=== PATIENT | male | born 1950 | race Caucasian/White ===

== ENCOUNTER 2017-11-16 11:29 | Inpatient (IN) | payer BC, MEDICARE, OTHER ==
--- NOTE | 2017-11-16 11:46 | EDM.PDOC ---
ED HPI GENERAL MEDICAL PROBLEM - General Chief Complaint: General Stated Complaint: IN BY AMBULANCE Time Seen by Provider: 11/16/17 11:57 Source of Information: Reports: Patient, RN, RN Notes Reviewed History Limitations: Reports: No Limitations - History of Present Illness INITIAL COMMENTS - FREE TEXT/NARRATIVE: Patient presents to ER per [facility] with complaint of leg swelling. Pain in lower back since getting here. The pain is 7-8/10. Patient states he has had back problems but he states his back was thrown out when he was moved from ambulance cot to ER bed. Patient states he has not been able to get out of chair since Friday. Patient states legs began swelling on Friday. Denies shortness of breath, chest pain, fever, chills, nausea, vomiting and diarrhea. Location: Reports: Back, Other (leg swelling) Quality: Reports: Ache Severity: Severe Improves with: Reports: None Worsens with: Reports: None Associated Symptoms: Reports: No Other Symptoms Bilateral Feet Pain Score (Numeric/FACES): 4 Lower Back Pain Score (Numeric/FACES): 8 - Related Data Allergies Allergy/AdvReac Type Severity Reaction Status Date / Time No Known Allergies Allergy Verified 11/16/17 11:30 Home Meds: Home Meds Aspirin [Ecotrin] 81 mg PO DAILY 11/16/17 [History] Clopidogrel Bisulfate [Plavix] 75 mg PO DAILY 11/16/17 [History] Gabapentin [Neurontin] 400 mg PO TID 11/16/17 [History] Lisinopril 40 mg PO DAILY 11/16/17 [History] Metoprolol Tartrate 50 mg PO BID 11/16/17 [History] glipiZIDE [Glucotrol XL] 5 mg PO BID 11/16/17 [History] Social & Family History - Family History Family Medical History: Noncontributory - Tobacco Use Smoking Status *Q: Current Every Day Smoker Years of Tobacco use: 45 Packs/Tins Daily: 1 Second Hand Smoke Exposure: No - Caffeine Use Caffeine Use: Reports: Soda - Alcohol Use Days Per Week of Alcohol Use: 0 - Recreational Drug Use Recreational Drug Use: No ED ROS GENERAL - Review of Systems Review Of Systems: ROS reveals no pertinent complaints other than HPI. ED EXAM, GENERAL - Physical Exam Exam: See Below Exam Limited By: No Limitations General Appearance: Moderate Distress Eye Exam: Bilateral Eye: Normal Inspection Ears: Normal External Exam, Normal Canal, Hearing Grossly Normal, Normal TMs Nose: Normal Inspection, Normal Mucosa, No Blood Throat/Mouth: Normal Inspection, Normal Lips, Normal Teeth, Normal Gums, Normal Oropharynx, Normal Voice, No Airway Compromise Head: Atraumatic, Normocephalic Neck: Normal Inspection Respiratory/Chest: Other (Rales and wheezes throughout) Cardiovascular: Other (History of CABG in 2009.) GI/Abdominal: Other (distender without being tender. Decreased bowel sounds.) (Male) Exam: Deferred Rectal (Males) Exam: Deferred Back Exam: Decreased Range of Motion Extremities: Other (decreased range of motion lower extremities) Neurological: Alert, Oriented, CN II-XII Intact, Normal Cognition, Normal Gait, Normal Reflexes, No Motor/Sensory Deficits Psychiatric: Anxious Skin Exam: Other (pallor, cool and diaphoretic.) Lymphatic: No Adenopathy EKG INTERPRETATION EKG Date: 11/16/17 Time: 11:57 Rhythm: Other (sinus rhythm) Rate (Beats/Min): 92 EKG Interpretation Comments: Ventricular premature complex. Probable left atrial abnormality. Borderline right axis deviation. Borderline inferior Q waves. Borderline prolonged QT interval. Course - Vital Signs Last Recorded V/S: Last Vital Signs Temp 98.3 F 11/16/17 11:55 Pulse 98 11/16/17 20:00 Resp 20 11/16/17 13:37 BP 97/47 L 11/16/17 20:00 Pulse Ox 92 L 11/16/17 13:37 - Orders/Labs/Meds Orders: Active Orders 24 hr Category Date Time Status Peripheral IV Care [RC] . DIRECTED Care 11/16/17 12:12 Active CULTURE BLOOD [BC] Stat Lab 11/16/17 12:30 Received CULTURE BLOOD [BC] Stat Lab 11/16/17 12:35 Received Sodium Chloride 0.9% [Saline Flush] Med 11/16/17 12:12 Active 10 ml FLUSH ASDIRECTED PRN Blood Culture x2 Reflex Set [OM.PC] Stat Oth 11/16/17 12:12 Ordered Peripheral IV Insertion Adult [OM.PC] Stat Oth 11/16/17 12:12 Ordered Medication Orders Acetaminophen (Tylenol) 650 mg PO Q4H PRN PRN Reason: Pain (Mild 1-3)/fever Last Admin: 11/16/17 16:14 Dose: 650 mg Aspirin (Halfprin) 81 mg PO DAILY [facility] Last Admin: 11/16/17 16:15 Dose: 81 mg Ceftriaxone Sodium (Rocephin) 1 gm IVPUSH Q24H [facility] Last Admin: 11/16/17 16:13 Dose: 1 gm Clopidogrel Bisulfate (Plavix) 75 mg PO DAILY [facility] Last Admin: 11/16/17 16:15 Dose: 75 mg Docusate Sodium (Colace) 100 mg PO BID PRN PRN Reason: Constipation Furosemide (Lasix) 20 mg PO DAILY [facility] Last Admin: 11/16/17 16:14 Dose: 20 mg Gabapentin (Neurontin) 300 mg PO TID [facility] Last Admin: 11/16/17 20:00 Dose: 300 mg Admin: 11/16/17 16:15 Dose: 300 mg Glipizide (Glucotrol Xl) 5 mg PO DAILY [facility] Heparin Sodium (Porcine) (Heparin Sodium) 5,000 units SUBCUT Q8HR [facility] Azithromycin 500 mg/ Sodium (Chloride) 250 mls @ 250 mls/hr IV Q24H [facility] Last Admin: 11/16/17 16:13 Dose: 125 mls/hr Ibuprofen (Motrin) 400 mg PO Q6H PRN PRN Reason: Pain (mild 1-3) Insulin Aspart (Novolog) 0 unit SUBCUT TIDAC [facility] PRN Reason: Protocol Last Admin: 11/16/17 18:35 Dose: Metoprolol Tartrate (Lopressor) 50 mg PO BID [facility] Last Admin: 11/16/17 20:00 Dose: 50 mg Multi-Ingred Cream/Lotion/Oil/Oint (Zinc Oxide) 0 gm TOP Q4H PRN PRN Reason: barrier cream on buttock Nystatin (Nystatin Crm) 0 gm TOP TID [facility] Last Admin: 11/16/17 20:01 Dose: 1 applicful Admin: 11/16/17 16:15 Dose: 1 applicful Ondansetron HCl (Zofran) 4 mg IVPUSH Q6H PRN PRN Reason: Nausea/Vomiting Sodium Chloride (Saline Flush) 10 ml FLUSH ASDIRECTED PRN PRN Reason: Keep Vein Open Last Admin: 11/16/17 12:17 Dose: 10 ml Sodium Chloride (Saline Flush) 10 ml FLUSH ASDIRECTED PRN PRN Reason: Keep Vein Open Zolpidem Tartrate (Ambien) 5 mg PO BEDTIME PRN PRN Reason: Sleep Labs: Laboratory Tests 11/16/17 11/16/17 11/16/17 Range/Units 12:35 12:35 12:35 WBC 15.1 H (5.0-10.0) 10^3/uL RBC 4.84 (4.6-6.2) 10^6/uL Hgb 14.9 (14.0-18.0) g/dL Hct 44.1 (40.0-54.0) % MCV 91.1 (80-100) fL MCH 30.8 (27.0-34.0) pg MCHC 33.8 (33.0-35.0) g/dL Plt Count 201 (150-450) 10^3/uL Neut % (Auto) 83.1 H (42.2-75.2) % Lymph % (Auto) 5.2 L (20.5-50.1) % [place] % (Auto) 10.9 H (2-8) % Eos % (Auto) 0.7 L (1.0-3.0) % Baso % (Auto) 0.1 (0.0-1.0) % Add Manual Diff Yes Neutrophils % (Manual) 82 H (42-75) % Band Neutrophils % 3 % Lymphocytes % (Manual) 7 L (20-50) % Monocytes % (Manual) 8 (2-8) % Sodium 126 L (135-145) mmol/L Potassium 4.3 (3.6-5.0) mmol/L Chloride 90 L (101-111) mmol/L Carbon Dioxide 24.0 (21.0-31.0) mmol/L Anion Gap 16.3 BUN 31 H (7-18) mg/dL Creatinine 1.4 H (0.6-1.3) mg/dL Est Cr Clr Drug Dosing 51.42 mL/min Estimated GFR (MDRD) 50 BUN/Creatinine Ratio 22.14 Glucose 163 H (74-105) mg/dL Lactic Acid 2.5 H (0.5-2.2) mmol/L Calcium 8.6 (8.4-10.2) mg/dl Total Bilirubin 2.2 H (0.2-1.0) mg/dL AST 37 (10-42) IU/L ALT 19 (10-60) IU/L Alkaline Phosphatase 120 (42-121) IU/L Troponin I < 0.02 (0.00-0.02) ng/ml B-Natriuretic Peptide 28 (0-100) pg/ml Total Protein 8.5 H (6.7-8.2) g/dl Albumin 3.4 (3.2-5.5) g/dl Globulin 5.1 Albumin/Globulin Ratio 0.67 Urine Color (YELLOW) Urine Appearance (CLEAR) Urine pH (5.0-9.0) Ur Specific [place] (1.005-1.030) Urine Protein (NEGATIVE) Urine Glucose (UA) (NEGATIVE) Urine Ketones (NEGATIVE) Urine Occult Blood (NEGATIVE) Urine Nitrite (NEGATIVE) Urine Bilirubin (NEGATIVE) Urine Urobilinogen (0.2-1.0) mg/dL Ur Leukocyte Esterase (NEGATIVE) Urine RBC /HPF Urine WBC (0-5/HPF) /HPF Ur Epithelial Cells /HPF Urine Bacteria (0-FEW/HPF) /HPF Hyaline Casts /LPF 11/16/17 Range/Units 13:28 WBC (5.0-10.0) 10^3/uL RBC (4.6-6.2) 10^6/uL Hgb (14.0-18.0) g/dL Hct (40.0-54.0) % MCV (80-100) fL MCH (27.0-34.0) pg MCHC (33.0-35.0) g/dL Plt Count (150-450) 10^3/uL Neut % (Auto) (42.2-75.2) % Lymph % (Auto) (20.5-50.1) % [place] % (Auto) (2-8) % Eos % (Auto) (1.0-3.0) % Baso % (Auto) (0.0-1.0) % Add Manual Diff Neutrophils % (Manual) (42-75) % Band Neutrophils % % Lymphocytes % (Manual) (20-50) % Monocytes % (Manual) (2-8) % Sodium (135-145) mmol/L Potassium (3.6-5.0) mmol/L Chloride (101-111) mmol/L Carbon Dioxide (21.0-31.0) mmol/L Anion Gap BUN (7-18) mg/dL Creatinine (0.6-1.3) mg/dL Est Cr Clr Drug Dosing mL/min Estimated GFR (MDRD) BUN/Creatinine Ratio Glucose (74-105) mg/dL Lactic Acid (0.5-2.2) mmol/L Calcium (8.4-10.2) mg/dl Total Bilirubin (0.2-1.0) mg/dL AST (10-42) IU/L ALT (10-60) IU/L Alkaline Phosphatase (42-121) IU/L Troponin I (0.00-0.02) ng/ml B-Natriuretic Peptide (0-100) pg/ml Total Protein (6.7-8.2) g/dl Albumin (3.2-5.5) g/dl Globulin Albumin/Globulin Ratio Urine Color Elise (YELLOW) Urine Appearance Turbid (CLEAR) Urine pH 5.5 (5.0-9.0) Ur Specific [place] 1.020 (1.005-1.030) Urine Protein 30 H (NEGATIVE) Urine Glucose (UA) Negative (NEGATIVE) Urine Ketones Negative (NEGATIVE) Urine Occult Blood Negative (NEGATIVE) Urine Nitrite Negative (NEGATIVE) Urine Bilirubin Moderate H (NEGATIVE) Urine Urobilinogen >=8.0 H (0.2-1.0) mg/dL Ur Leukocyte Esterase Negative (NEGATIVE) Urine RBC 0-5 /HPF Urine WBC 0-5 (0-5/HPF) /HPF Ur Epithelial Cells Moderate H /HPF Urine Bacteria Moderate H (0-FEW/HPF) /HPF Hyaline Casts Many H /LPF Meds: Medications Generic Name Dose Route Start Last Admin Trade Name Tanvir PRN Reason Stop Dose Admin Acetaminophen 650 mg 11/16/17 14:52 11/16/17 16:14 Tylenol PO 650 mg Q4H PRN Administration Pain (Mild 1-3)/fever Aspirin 81 mg 11/16/17 15:29 11/16/17 16:15 Halfprin PO 81 mg DAILY [facility] Administration Ceftriaxone Sodium 1 gm 11/16/17 15:00 11/16/17 16:13 Rocephin IVPUSH 1 gm Q24H [facility] Administration Clopidogrel Bisulfate 75 mg 11/16/17 15:30 11/16/17 16:15 Plavix PO 75 mg DAILY [facility] Administration Docusate Sodium 100 mg 11/16/17 14:52 Colace PO BID PRN Constipation Furosemide 20 mg 11/16/17 15:00 11/16/17 16:14 Lasix PO 20 mg DAILY [facility] Administration Gabapentin 300 mg 11/16/17 15:45 11/16/17 20:00 Neurontin PO 300 mg TID [facility] Administration Glipizide 5 mg 11/17/17 09:00 Glucotrol Xl PO DAILY [facility] Heparin Sodium (Porcine) 5,000 units 11/16/17 22:00 Heparin Sodium SUBCUT Q8HR [facility] Azithromycin 500 mg/ Sodium 250 mls @ 250 mls/hr 11/16/17 15:00 11/16/17 16: 13 Chloride IV 125 mls/hr Q24H [facility] Administration Ibuprofen 400 mg 11/16/17 14:52 Motrin PO Q6H PRN Pain (mild 1-3) Insulin Aspart 0 unit 11/16/17 17:00 11/16/17 18:35 Novolog SUBCUT Not Given TIDAC [facility] Protocol Metoprolol Tartrate 50 mg 11/16/17 21:00 11/16/17 20:00 Lopressor PO 50 mg BID [facility] Administration Multi-Ingred Cream/Lotion/Oil/Oint 0 gm 11/16/17 15:52 Zinc Oxide TOP Q4H PRN barrier cream on buttock Nystatin 0 gm 11/16/17 15:30 11/16/17 20:01 Nystatin Crm TOP 1 applicful TID [facility] Administration Ondansetron HCl 4 mg 11/16/17 14:52 Zofran IVPUSH Q6H PRN Nausea/Vomiting Sodium Chloride 10 ml 11/16/17 12:12 11/16/17 12:17 Saline Flush FLUSH 10 ml ASDIRECTED PRN Administration Keep Vein Open Sodium Chloride 10 ml 11/16/17 14:52 Saline Flush FLUSH ASDIRECTED PRN Keep Vein Open Zolpidem Tartrate 5 mg 11/16/17 14:52 Ambien PO BEDTIME PRN Sleep Discontinued Medications Generic Name Dose Route Start Last Admin Trade Name Freq PRN Reason Stop Dose Admin Aspirin 81 mg 11/17/17 09:00 Halfprin PO DAILY [facility] Clopidogrel Bisulfate 75 mg 11/17/17 09:00 Plavix PO DAILY [facility] Glipizide 5 mg 11/16/17 18:00 Glucotrol Xl PO BIDMEALS [facility] Hydromorphone HCl 1 mg 11/16/17 12:48 11/16/17 13:05 Dilaudid IVPUSH 11/16/17 12:49 1 mg ONETIME ONE Administration Lisinopril 40 mg 11/17/17 09:00 Prinivil PO DAILY [facility] - Radiology Interpretation Free Text/Narrative:: Chest x-ray: Subtle new abnormality left base. No signs of heart failure, lung mass or other focal lobar consolidation. See Rad report. Departure - Departure Time of Disposition: 14:40 Disposition: Refer to Observation Condition: Fair Clinical Impression: Weakness CAD (coronary artery disease) Qualifiers: Coronary Disease-Associated Artery/Lesion type: unspecified vessel or lesion type [place] vs. transplanted heart: [place] heart Associated angina: without angina Qualified Code(s): I25.10 - Atherosclerotic heart disease of [place] coronary artery without angina pectoris Decubitus ulcer Qualifiers: Pressure ulcer location: contiguous region involving back and buttock Pressure ulcer stage: stage 2 Laterality: unspecified laterality Qualified Code(s): L89.42 - Pressure ulcer of contiguous site of back, buttock and hip, stage 2 - Discharge Information - My Orders Last 24 Hours: My Active Orders 11/16/17 12:12 Peripheral IV Care [RC] . DIRECTED Sodium Chloride 0.9% [Saline Flush] 10 ml FLUSH ASDIRECTED PRN Blood Culture x2 Reflex Set [OM.PC] Stat Peripheral IV Insertion Adult [OM.PC] Stat 11/16/17 12:30 CULTURE BLOOD [BC] Stat 11/16/17 12:35 CULTURE BLOOD [BC] Stat - Assessment/Plan Last 24 Hours: My Active Orders 11/16/17 12:12 Peripheral IV Care [RC] . DIRECTED Sodium Chloride 0.9% [Saline Flush] 10 ml FLUSH ASDIRECTED PRN Blood Culture x2 Reflex Set [OM.PC] Stat Peripheral IV Insertion Adult [OM.PC] Stat 11/16/17 12:30 CULTURE BLOOD [BC] Stat 11/16/17 12:35 CULTURE BLOOD [BC] Stat
[2017-11-16] MEDS: Sodium Chloride 0.9% 10 ML Syringe FLUSH PRN (12:17)
[2017-11-16] MEDS ORDERED: HYDROmorphone 1 MG/ML Syringe IVPUSH ONE (12:48)
--- NOTE | 2017-11-16 13:05 | CR ---
Clinical history: 67-year-old male chest pain. Interpretation: Sternotomy wires and external child monitor leads. Normal cardiac silhouette without new cephalization of vascular flow, signs of alveolar edema or depe ndent pleural fluid accumulation (effusion) when compared to 09 May 2010 exam. Chronic mild shaggy accentuation of the perihilar bronchial markings and some lower lobe atelectasis (developing infiltrate?) on the left, silhouetting the ipsilateral left hemidiaphragm. No new lung mass, hilar lymphadenopathy or other focal lobar consolidation. No pneumothorax. CONCLUSION: Subtle new abnormality left base (see above). No signs of heart failure, lung mass or oth er focal lobar consolidation.
[2017-11-16 13:06] LABS: ANION GAP 16.3; CHLORIDE,CL 90 mmol/L (101-111); SODIUM,NA 126 mmol/L (135-145)
[2017-11-16] MEDS ORDERED: Docusate Sodium 100 MG Cap PO PRN (14:52)
[2017-11-16] MEDS ORDERED: Sodium Chloride 0.9% 10 ML Syringe FLUSH PRN (14:52)
[2017-11-16] MEDS ORDERED: Ondansetron 4 MG/2 ML SDV IVPUSH PRN (14:52)
--- NOTE | 2017-11-16 15:04 | PCM.HP ---
H&P History of Present Illness - General Date of Service: 11/16/17 Admit Problem/Dx: Admission Diagnosis/Problem Admission Diagnosis/Problem Pneumonia - History of Present Illness Initial Comments - Free Text/Narative: 67 yo with h/o dm, pad, cad, cva, morbid obesity. presnted with weakness, could not get out of chair for 3-5 days, c/o leg swelling, his daughter was soaking the leg, used dino wrap without help no associated cp has cough, chronic, no sputum no fever no urine burning was urinating into a bucket next to his recliner, presented dirty, ulcer on sacral area Bilateral Feet Pain Score (Numeric/FACES): 4 Lower Back Pain Score (Numeric/FACES): 8 - Related Data Allergies/Adverse Reactions: Allergies Allergy/AdvReac Type Severity Reaction Status Date / Time No Known Allergies Allergy Verified 11/16/17 11:30 Home Medications: Home Meds Aspirin [Ecotrin] 81 mg PO DAILY 11/16/17 [History] Clopidogrel Bisulfate [Plavix] 75 mg PO DAILY 11/16/17 [History] Gabapentin [Neurontin] 800 mg PO TID 11/16/17 [History] Lisinopril 40 mg PO DAILY 11/16/17 [History] Metoprolol Tartrate 50 mg PO BID 11/16/17 [History] glipiZIDE [Glucotrol XL] 5 mg PO BID 11/16/17 [History] Past Medical History HEENT History: Reports: None Cardiovascular History: Reports: Hypertension, [place] Respiratory History: Reports: None Gastrointestinal History: Reports: None Genitourinary History: Reports: None Musculoskeletal History: Reports: Back Pain, Chronic Neurological History: Reports: CVA, Neuropathy, Peripheral Psychiatric History: Reports: None Endocrine/Metabolic History: Reports: Diabetes, Type II Hematologic History: Reports: None Immunologic History: Reports: None Oncologic (Cancer) History: Reports: None Dermatologic History: Reports: None - Infectious Disease History Infectious Disease History: Reports: None - Past Surgical History HEENT Surgical History: Reports: None Cardiovascular Surgical History: Reports: Coronary Artery Bypass Respiratory Surgical History: Reports: None GI Surgical History: Reports: None Male Surgical History: Reports: None Dermatological Surgical History: Reports: None Social & Family History - Family History Family Medical History: Noncontributory - Tobacco Use Smoking Status *Q: Current Every Day Smoker Years of Tobacco use: 45 Packs/Tins Daily: 1 Second Hand Smoke Exposure: No - Caffeine Use Caffeine Use: Reports: Soda - Alcohol Use Days Per Week of Alcohol Use: 0 - Recreational Drug Use Recreational Drug Use: No H&P Review of Systems - Review of Systems: Review Of Systems: See Below General: Reports: Malaise, Weakness. Denies: Fever, Chills Pulmonary: Denies: Shortness of Breath, Wheezing Cardiovascular: Denies: Chest Pain Gastrointestinal: Denies: Abdominal Pain Genitourinary: Denies: Dysuria Musculoskeletal: Reports: Back Pain (after transfer in ER) Exam - Exam Exam: See Below - Vital Signs Vital Signs: Last Vital Signs Temp 36.8 C 11/16/17 11:55 Pulse 94 11/16/17 13:37 Resp 20 11/16/17 13:37 BP 114/94 H 11/16/17 13:37 Pulse Ox 92 L 11/16/17 13:37 Weight: 131.542 kg - Exam General: Alert, Oriented HEENT: EOMI, Hearing Intact Lungs: Normal Respiratory Effort, Decreased Breath Sounds, Rhonchi (b/l ). No: Wheezing Cardiovascular: Regular Rate, Regular Rhythm GI/Abdominal Exam: Normal Bowel Sounds, Soft, Non-Tender, Other (morbidly obese) Extremities: Pedal Edema (b/l 2+ ) Skin: Rash (yeasty rash b/l armpits), Decubitis (sacral area), Other (dirty everywhere) Neurological: Other (able to move all extremities but not strong enough to stand up on his own). No: Normal Gait Neuro Extensive - Mental Status: Alert, Oriented x3, Normal Mood/Affect Psychiatric: Alert, Normal Affect, Normal Mood - Patient Data Result Diagrams: 11/16/17 12:35 11/16/17 12:35 Imaging Impressions Last 24 hrs: cxr per reading possible left sided infiltrate *Q Meaningful Use (ADM) - VTE *Q VTE Criteria *Q: - Stroke *Q Stroke Criteria *Q: - AMI *Q AMI Criteria *Q: - Problem List (1) Weakness SNOMED Code(s): 70383613 ICD Code: R53.1 - WEAKNESS Status: Acute Current Visit: Yes (2) Pneumonia SNOMED Code(s): 878097135 ICD Code: J18.9 - PNEUMONIA, UNSPECIFIED ORGANISM Status: Acute Current Visit: Yes (3) CAD (coronary artery disease) SNOMED Code(s): 66676421 ICD Code: I25.10 - ATHSCL HEART DISEASE OF [place] CORONARY ARTERY W/O ANG PCTRS Status: Acute Current Visit: Yes (4) Diabetes SNOMED Code(s): 86027547 ICD Code: E11.9 - TYPE 2 DIABETES MELLITUS WITHOUT COMPLICATIONS Status: Acute Current Visit: Yes Problem List Initiated/Reviewed/Updated: Yes Orders Last 24hrs: Active Orders 24 hr Category Date Time Status Patient Status [ADT] Routine ADT 11/16/17 14:52 Ordered Antiembolic Devices [RC] PER UNIT ROUTINE Care 11/16/17 14:54 Ordered Glucose [Blood Glucose Check, Bedside] [RC] QIDACANDBED Care 11/16/17 14:49 Ordered Oxygen Therapy [RC] PRN Care 11/16/17 14:52 Ordered Up With Assistance [RC] ASDIRECTED Care 11/16/17 14:52 Ordered VTE/DVT Education [RC] PER UNIT ROUTINE Care 11/16/17 14:52 Ordered Vital Signs [RC] Q4H Care 11/16/17 14:52 Ordered OT Evaluation and Treatment [CONS] Routine Cons 11/16/17 14:50 Ordered PT Evaluation and Treatment [CONS] Routine Cons 11/16/17 14:50 Ordered Consistent Carbohydrate Diet [DIET] Diet 11/16/17 Dinner Ordered BASIC METABOLIC PANEL,BMP [CHEM] AM Lab 11/17/17 05:15 Ordered CBC WITH AUTO DIFF [HEME] AM Lab 11/17/17 05:15 Ordered CPK [CREATINE KINASE,CK] [CHEM] AM Lab 11/17/17 05:11 Ordered CULTURE SPUTUM + SMEAR [RM] Routine Lab 11/16/17 14:49 Uncollected LACTIC ACID [CHEM] AM Lab 11/17/17 05:11 Ordered LACTIC ACID [CHEM] Timed Lab 11/16/17 16:00 Ordered MAGNESIUM [CHEM] AM Lab 11/17/17 05:11 Ordered PHOSPHORUS [CHEM] AM Lab 11/17/17 05:11 Ordered TROPONIN I [CHEM] AM Lab 11/17/17 05:11 Ordered Acetaminophen [Tylenol] Med 11/16/17 14:52 Ordered 650 mg PO Q4H PRN Aspirin [Halfprin] Med 11/17/17 09:00 Ordered 81 mg PO DAILY Azithromycin [Zithromax] 500 mg Med 11/16/17 15:00 Ordered Sodium Chloride 0.9% [Normal Saline] 250 ml IV Q24H Clopidogrel [Plavix] Med 11/17/17 09:00 Ordered 75 mg PO DAILY Docusate Sodium [Colace] Med 11/16/17 14:52 Ordered 100 mg PO BID PRN Furosemide [Lasix] Med 11/16/17 15:00 Ordered 20 mg PO DAILY Heparin Sodium Med 11/16/17 22:00 Ordered 5,000 units SUBCUT Q8HR Ibuprofen [Motrin] Med 11/16/17 14:52 Ordered 400 mg PO Q6H PRN Insulin Aspart [NovoLOG] Med 11/16/17 17:00 Ordered See Protocol SUBCUT TIDAC Lisinopril [Lisinopril] Med 11/17/17 09:00 Ordered 40 mg PO DAILY Metoprolol Tartrate Med 11/16/17 21:00 Ordered 50 mg PO BID Ondansetron [Zofran] Med 11/16/17 14:52 Ordered 4 mg IVPUSH Q6H PRN Sodium Chloride 0.9% [Saline Flush] Med 11/16/17 14:52 Ordered 10 ml FLUSH ASDIRECTED PRN Zolpidem [Ambien] Med 11/16/17 14:52 Ordered 5 mg PO BEDTIME PRN cefTRIAXone [Rocephin] Med 11/16/17 15:00 Ordered 1 gm IVPUSH Q24H glipiZIDE [Glucotrol XL] Med 11/16/17 21:00 Ordered 5 mg PO BID Antiembolic Hose [OM.PC] Per Unit Routine Oth 11/16/17 14:53 Ordered Saline Lock Insert [OM.PC] Routine Oth 11/16/17 14:52 Ordered Resuscitation Status Routine Resus Stat 11/16/17 14:52 Ordered Medication Orders Acetaminophen (Tylenol) 650 mg PO Q4H PRN PRN Reason: Pain (Mild 1-3)/fever Aspirin (Halfprin) 81 mg PO DAILY [facility] Ceftriaxone Sodium (Rocephin) 1 gm IVPUSH Q24H [facility] Clopidogrel Bisulfate (Plavix) 75 mg PO DAILY [facility] Docusate Sodium (Colace) 100 mg PO BID PRN PRN Reason: Constipation Furosemide (Lasix) 20 mg PO DAILY [facility] Glipizide (Glucotrol Xl) 5 mg PO BIDMEALS [facility] Heparin Sodium (Porcine) (Heparin Sodium) 5,000 units SUBCUT Q8HR [facility] Azithromycin 500 mg/ Sodium (Chloride) 250 mls @ 250 mls/hr IV Q24H [facility] Ibuprofen (Motrin) 400 mg PO Q6H PRN PRN Reason: Pain (mild 1-3) Insulin Aspart (Novolog) 0 unit SUBCUT TIDAC [facility] PRN Reason: Protocol Lisinopril (Prinivil) 40 mg PO DAILY [facility] Metoprolol Tartrate (Lopressor) 50 mg PO BID [facility] Ondansetron HCl (Zofran) 4 mg IVPUSH Q6H PRN PRN Reason: Nausea/Vomiting Sodium Chloride (Saline Flush) 10 ml FLUSH ASDIRECTED PRN PRN Reason: Keep Vein Open Last Admin: 11/16/17 12:17 Dose: 10 ml Sodium Chloride (Saline Flush) 10 ml FLUSH ASDIRECTED PRN PRN Reason: Keep Vein Open Zolpidem Tartrate (Ambien) 5 mg PO BEDTIME PRN PRN Reason: Sleep Assessment/Plan Comment:: 67 yo presented with weakness noted to have leukocytosis, mildly elevated lactic acid 1. leukocytosis, mildly elevated lactic acid possible pneumonia on cxr with sepsis obtain blood cx sputum cx repeat lactic acid start empiric ceftriaxone, azithromycin 2. Leg edema start lasix 3. Weakness pt/ot eval and treat decubitus ulcer - use duoderm fungal skin infection - start nystatin 4. CAD, PAD, h/o cva cont asa, plavix, metoprolol 5. DM use glipizide supplemental insulin as needed 6. dvt prophylaxis sq heparin
[2017-11-16] MEDS: cefTRIAXone 1 GM Vial IVPUSH SCH (16:13)
[2017-11-16] MEDS: Azithromycin 500 MG in Sodium Chloride 0.9% 250 ML IV SCH (16:13)
[2017-11-16] MEDS: Furosemide 20 MG Tab PO SCH (16:14)
[2017-11-16] MEDS: Acetaminophen 325 MG Tab PO PRN (16:14)
[2017-11-16] MEDS: Aspirin 81 MG Tab.EC PO SCH (16:15)
[2017-11-16] MEDS: Nystatin Crm 15 GM Tube TOP SCH ×2 (16:15→20:01)
[2017-11-16] MEDS: Clopidogrel 75 MG Tab PO SCH (16:15)
[2017-11-16] MEDS: Gabapentin 300 MG Cap PO SCH ×2 (16:15→20:00)
[2017-11-16] MEDS ORDERED: glipiZIDE 5 MG Tab.ER PO SCH (18:00)
[2017-11-16] MEDS: Insulin Aspart 100 Units/ML 3 ML Pen SUBCUT SCH (18:35)
[2017-11-16] MEDS: Metoprolol Tartrate 50 MG Tab PO SCH (20:00)
[2017-11-16] MEDS: Heparin Sodium 5,000 Units/ML Vial SUBCUT SCH (21:48)
[2017-11-17] MEDS: Heparin Sodium 5,000 Units/ML Vial SUBCUT SCH ×3 (05:54→22:16)
[2017-11-17 07:27] LABS: ANION GAP 15.9; CHLORIDE,CL 94 mmol/L (101-111); SODIUM,NA 129 mmol/L (135-145)
[2017-11-17] MEDS: Insulin Aspart 100 Units/ML 3 ML Pen SUBCUT SCH ×3 (08:27→19:24)
[2017-11-17] MEDS ORDERED: Lisinopril 20 MG Tab PO SCH (09:00)
[2017-11-17] MEDS ORDERED: Clopidogrel 75 MG Tab PO SCH (09:00)
[2017-11-17] MEDS ORDERED: Aspirin 81 MG Tab.EC PO SCH (09:00)
[2017-11-17] MEDS: glipiZIDE 5 MG Tab.ER PO SCH (09:29)
[2017-11-17] MEDS: Aspirin 81 MG Tab.EC PO SCH (09:29)
[2017-11-17] MEDS: Gabapentin 300 MG Cap PO SCH ×3 (09:29→22:12)
[2017-11-17] MEDS: Metoprolol Tartrate 50 MG Tab PO SCH ×2 (09:30→22:08)
[2017-11-17] MEDS: Clopidogrel 75 MG Tab PO SCH (09:31)
[2017-11-17] MEDS: Furosemide 20 MG Tab PO SCH (09:31)
[2017-11-17] MEDS: Nystatin Crm 15 GM Tube TOP SCH ×3 (13:16→22:12)
[2017-11-17] MEDS: Azithromycin 500 MG in Sodium Chloride 0.9% 250 ML IV SCH (15:17)
[2017-11-17] MEDS: cefTRIAXone 1 GM Vial IVPUSH SCH (15:17)
[2017-11-17] MEDS: Sodium Chloride 0.9% 10 ML Syringe FLUSH PRN ×2 (15:18→21:00)
[2017-11-17] MEDS: Acetaminophen 325 MG Tab PO PRN (15:26)
--- NOTE | 2017-11-17 16:53 | PCM.PN ---
- General Info Date of Service: 11/17/17 Admission Dx/Problem (Free Text): Admission Diagnosis/Problem Admission Diagnosis/Problem Pneumonia Subjective Update: still feeling weak Needed help to get out of bed and get into chair No complains of shortness of breath, abdominal pain, chest pain Has occasional cough leg swelling is Still present but better Functional Status: Reports: Tolerating Diet - Review of Systems General: Denies: Fever Pulmonary: Denies: Shortness of Breath Cardiovascular: Denies: Chest Pain Gastrointestinal: Denies: Abdominal Pain Neurological: Denies: Confusion - Patient Data Vitals - Most Recent: Last Vital Signs Temp 36.6 C 11/17/17 15:55 Pulse 64 11/17/17 15:55 Resp 20 11/17/17 15:55 BP 105/49 L 11/17/17 15:55 Pulse Ox 92 L 11/17/17 15:55 Weight - Most Recent: 131.542 kg I&O - Last 24 Hours: Intake & Output 11/17/17 11/17/17 11/17/17 06:59 14:59 22:59 Intake Total 800 1100 Output Total 1150 Balance -350 1100 Lab Results Last 24 Hours: Laboratory Results - last 24 hr 11/16/17 11/16/17 11/17/17 Range/Units 17:00 20:58 06:50 WBC (5.0-10.0) 10^3/uL RBC (4.6-6.2) 10^6/uL Hgb (14.0-18.0) g/dL Hct (40.0-54.0) % MCV (80-100) fL MCH (27.0-34.0) pg MCHC (33.0-35.0) g/dL Plt Count (150-450) 10^3/uL Neut % (Auto) (42.2-75.2) % Lymph % (Auto) (20.5-50.1) % [place] % (Auto) (2-8) % Eos % (Auto) (1.0-3.0) % Baso % (Auto) (0.0-1.0) % Sodium 129 L (135-145) mmol/L Potassium 3.9 (3.6-5.0) mmol/L Chloride 94 L (101-111) mmol/L Carbon Dioxide 23.0 (21.0-31.0) mmol/L Anion Gap 15.9 BUN 33 H (7-18) mg/dL Creatinine 1.4 H (0.6-1.3) mg/dL Est Cr Clr Drug Dosing 51.42 mL/min Estimated GFR (MDRD) 50 Glucose 132 H (74-105) mg/dL POC Glucose 129 H 134 H (70-105) mg/dl Lactic Acid (0.5-2.2) mmol/L Calcium 8.3 L (8.4-10.2) mg/dl Phosphorus 3.5 (2.5-4.6) mg/dL Magnesium 2.5 (1.8-2.5) mg/dL Creatine Kinase 175 H (26-174) IU/L Troponin I < 0.02 (0.00-0.02) ng/ml 11/17/17 11/17/17 11/17/17 Range/Units 06:50 06:50 08:08 WBC 11.6 H (5.0-10.0) 10^3/uL RBC 4.60 (4.6-6.2) 10^6/uL Hgb 14.1 (14.0-18.0) g/dL Hct 42.4 (40.0-54.0) % MCV 92.2 (80-100) fL MCH 30.7 (27.0-34.0) pg MCHC 33.3 (33.0-35.0) g/dL Plt Count 167 (150-450) 10^3/uL Neut % (Auto) 78.4 H (42.2-75.2) % Lymph % (Auto) 7.7 L (20.5-50.1) % [place] % (Auto) 12.3 H (2-8) % Eos % (Auto) 1.4 (1.0-3.0) % Baso % (Auto) 0.2 (0.0-1.0) % Sodium (135-145) mmol/L Potassium (3.6-5.0) mmol/L Chloride (101-111) mmol/L Carbon Dioxide (21.0-31.0) mmol/L Anion Gap BUN (7-18) mg/dL Creatinine (0.6-1.3) mg/dL Est Cr Clr Drug Dosing mL/min Estimated GFR (MDRD) Glucose (74-105) mg/dL POC Glucose 128 H (70-105) mg/dl Lactic Acid 0.8 (0.5-2.2) mmol/L Calcium (8.4-10.2) mg/dl Phosphorus (2.5-4.6) mg/dL Magnesium (1.8-2.5) mg/dL Creatine Kinase (26-174) IU/L Troponin I (0.00-0.02) ng/ml 11/17/17 Range/Units 11:22 WBC (5.0-10.0) 10^3/uL RBC (4.6-6.2) 10^6/uL Hgb (14.0-18.0) g/dL Hct (40.0-54.0) % MCV (80-100) fL MCH (27.0-34.0) pg MCHC (33.0-35.0) g/dL Plt Count (150-450) 10^3/uL Neut % (Auto) (42.2-75.2) % Lymph % (Auto) (20.5-50.1) % [place] % (Auto) (2-8) % Eos % (Auto) (1.0-3.0) % Baso % (Auto) (0.0-1.0) % Sodium (135-145) mmol/L Potassium (3.6-5.0) mmol/L Chloride (101-111) mmol/L Carbon Dioxide (21.0-31.0) mmol/L Anion Gap BUN (7-18) mg/dL Creatinine (0.6-1.3) mg/dL Est Cr Clr Drug Dosing mL/min Estimated GFR (MDRD) Glucose (74-105) mg/dL POC Glucose 137 H (70-105) mg/dl Lactic Acid (0.5-2.2) mmol/L Calcium (8.4-10.2) mg/dl Phosphorus (2.5-4.6) mg/dL Magnesium (1.8-2.5) mg/dL Creatine Kinase (26-174) IU/L Troponin I (0.00-0.02) ng/ml Med Orders - Current: Current Medications Acetaminophen (Tylenol) 650 mg PO Q4H PRN PRN Reason: Pain (Mild 1-3)/fever Last Admin: 11/17/17 15:26 Dose: 650 mg Aspirin (Halfprin) 81 mg PO DAILY [facility] Last Admin: 11/17/17 09:29 Dose: 81 mg Ceftriaxone Sodium (Rocephin) 1 gm IVPUSH Q24H [facility] Last Admin: 11/17/17 15:17 Dose: 1 gm Clopidogrel Bisulfate (Plavix) 75 mg PO DAILY [facility] Last Admin: 11/17/17 09:31 Dose: 75 mg Docusate Sodium (Colace) 100 mg PO BID PRN PRN Reason: Constipation Furosemide (Lasix) 20 mg PO DAILY [facility] Last Admin: 11/17/17 09:31 Dose: 20 mg Gabapentin (Neurontin) 300 mg PO TID [facility] Last Admin: 11/17/17 15:16 Dose: 300 mg Glipizide (Glucotrol Xl) 5 mg PO DAILY [facility] Last Admin: 11/17/17 09:29 Dose: 5 mg Heparin Sodium (Porcine) (Heparin Sodium) 5,000 units SUBCUT Q8HR [facility] Last Admin: 11/17/17 15:15 Dose: 5,000 units Azithromycin 500 mg/ Sodium (Chloride) 250 mls @ 250 mls/hr IV Q24H [facility] Last Admin: 11/17/17 15:17 Dose: 125 mls/hr Ibuprofen (Motrin) 400 mg PO Q6H PRN PRN Reason: Pain (mild 1-3) Insulin Aspart (Novolog) 0 unit SUBCUT TIDAC [facility] PRN Reason: Protocol Last Admin: 11/17/17 12:58 Dose: Not Given Metoprolol Tartrate (Lopressor) 50 mg PO BID [facility] Last Admin: 11/17/17 09:30 Dose: 50 mg Multi-Ingred Cream/Lotion/Oil/Oint (Zinc Oxide) 0 gm TOP Q4H PRN PRN Reason: barrier cream on buttock Nystatin (Nystatin Crm) 0 gm TOP TID [facility] Last Admin: 11/17/17 15:27 Dose: 1 applicful Ondansetron HCl (Zofran) 4 mg IVPUSH Q6H PRN PRN Reason: Nausea/Vomiting Sodium Chloride (Saline Flush) 10 ml FLUSH ASDIRECTED PRN PRN Reason: Keep Vein Open Last Admin: 11/17/17 15:18 Dose: 10 ml Sodium Chloride (Saline Flush) 10 ml FLUSH ASDIRECTED PRN PRN Reason: Keep Vein Open Zolpidem Tartrate (Ambien) 5 mg PO BEDTIME PRN PRN Reason: Sleep Discontinued Medications Aspirin (Halfprin) 81 mg PO DAILY [facility] Clopidogrel Bisulfate (Plavix) 75 mg PO DAILY [facility] Glipizide (Glucotrol Xl) 5 mg PO BIDMEALS [facility] Hydromorphone HCl (Dilaudid) 1 mg IVPUSH ONETIME ONE Stop: 11/16/17 12:49 Last Admin: 11/16/17 13:05 Dose: 1 mg Lisinopril (Prinivil) 40 mg PO DAILY [facility] - Exam General: Alert, Oriented Lungs: Normal Respiratory Effort, Decreased Breath Sounds Cardiovascular: Regular Rate, Regular Rhythm GI/Abdominal Exam: Normal Bowel Sounds, Soft, Non-Tender, Other (morbidly obese) Extremities: Pedal Edema (1+ bilateral) Skin: Warm, Dry Neurological: No New Focal Deficit Psy/Mental Status: Alert, Normal Affect, Normal Mood - Problem List & Annotations (1) Weakness SNOMED Code(s): 87996431 Code(s): R53.1 - WEAKNESS Status: Acute Current Visit: Yes (2) Pneumonia SNOMED Code(s): 382931602 Code(s): J18.9 - PNEUMONIA, UNSPECIFIED ORGANISM Status: Acute Current Visit: Yes (3) CAD (coronary artery disease) SNOMED Code(s): 70858683 Code(s): I25.10 - ATHSCL HEART DISEASE OF [place] CORONARY ARTERY W/O ANG PCTRS Status: Acute Current Visit: Yes Qualifiers: Coronary Disease-Associated Artery/Lesion type: unspecified vessel or lesion type [place] vs. transplanted heart: [place] heart Associated angina: without angina Qualified Code(s): I25.10 - Atherosclerotic heart disease of [place] coronary artery without angina pectoris (4) Diabetes SNOMED Code(s): 01689702 Code(s): E11.9 - TYPE 2 DIABETES MELLITUS WITHOUT COMPLICATIONS Status: Acute Current Visit: Yes - Problem List Review Problem List Initiated/Reviewed/Updated: Yes - My Orders Last 24 Hours: My Active Orders 11/16/17 15:52 Zinc Oxide 0 gm TOP Q4H PRN 11/16/17 17:00 Insulin Aspart [NovoLOG] See Protocol SUBCUT TIDAC 11/16/17 21:00 Metoprolol Tartrate [Lopressor] 50 mg PO BID 11/16/17 22:00 Heparin Sodium 5,000 units SUBCUT Q8HR 11/16/17 Dinner Consistent Carbohydrate Diet [DIET] 11/17/17 09:00 glipiZIDE [Glucotrol XL] 5 mg PO DAILY - Plan Plan:: 67 yo presented with weakness noted to have leukocytosis, mildly elevated lactic acid 1. leukocytosis, mildly elevated lactic acid improved leukocytosis possible pneumonia on cxr with sepsis pending blood cx pending cx repeat lactic acid normalized started empiric ceftriaxone, azithromycin 2. Leg edema started lasix follow electrolytes 3. Weakness pt/ot eval and treat decubitus ulcer - use duoderm fungal skin infection - started nystatin 4. CAD, PAD, h/o cva cont asa, plavix, metoprolol 5. DM blood sugars appear controlled use glipizide supplemental insulin as needed 7. Hyponatremia Improving Rechecking the morning 8. dvt prophylaxis sq heparin
[2017-11-18] MEDS: Zolpidem 5 MG Tab PO PRN ×2 (00:40→22:24)
[2017-11-18] MEDS: Heparin Sodium 5,000 Units/ML Vial SUBCUT SCH ×3 (06:35→21:06)
[2017-11-18 07:04] LABS: ANION GAP 12.4; CHLORIDE,CL 96 mmol/L (101-111); SODIUM,NA 131 mmol/L (135-145)
[2017-11-18] MEDS: Insulin Aspart 100 Units/ML 3 ML Pen SUBCUT SCH ×3 (08:09→17:28)
[2017-11-18] MEDS: glipiZIDE 5 MG Tab.ER PO SCH (08:45)
[2017-11-18] MEDS: Gabapentin 300 MG Cap PO SCH ×3 (08:46→20:28)
[2017-11-18] MEDS: Metoprolol Tartrate 50 MG Tab PO SCH ×2 (08:46→20:28)
[2017-11-18] MEDS: Furosemide 20 MG Tab PO SCH (08:46)
[2017-11-18] MEDS: Aspirin 81 MG Tab.EC PO SCH (08:46)
[2017-11-18] MEDS: Clopidogrel 75 MG Tab PO SCH (08:46)
[2017-11-18] MEDS: Ibuprofen 400 MG Tab PO PRN ×2 (08:47→23:10)
[2017-11-18] MEDS: Nystatin Crm 15 GM Tube TOP SCH ×3 (08:49→20:31)
--- NOTE | 2017-11-18 10:06 | PCM.PN ---
- General Info Date of Service: 11/18/17 Admission Dx/Problem (Free Text): Admission Diagnosis/Problem Admission Diagnosis/Problem Pneumonia Subjective Update: still feeling weak Needed help to get out of bed and get into chair No complains of shortness of breath, abdominal pain, chest pain Has occasional cough leg swelling is much better c/o b/l knee pain with movements, severe, no associated swelling, bruise, redness Functional Status: Denies: Pain Controlled - Review of Systems General: Denies: Fever Pulmonary: Denies: Shortness of Breath Cardiovascular: Denies: Chest Pain Gastrointestinal: Denies: Abdominal Pain Neurological: Denies: Confusion - Patient Data Vitals - Most Recent: Last Vital Signs Temp 36.7 C 11/18/17 07:00 Pulse 70 11/18/17 08:46 Resp 16 11/18/17 07:00 BP 127/60 11/18/17 08:46 Pulse Ox 93 L 11/18/17 07:00 Weight - Most Recent: 126.189 kg I&O - Last 24 Hours: Intake & Output 11/17/17 11/18/17 11/18/17 22:59 06:59 14:59 Intake Total 1710 1020 Output Total 1200 1930 Balance 510 -910 Lab Results Last 24 Hours: Laboratory Results - last 24 hr 11/17/17 11/17/17 11/17/17 Range/Units 11:22 17:08 21:30 WBC (5.0-10.0) 10^3/uL RBC (4.6-6.2) 10^6/uL Hgb (14.0-18.0) g/dL Hct (40.0-54.0) % MCV (80-100) fL MCH (27.0-34.0) pg MCHC (33.0-35.0) g/dL Plt Count (150-450) 10^3/uL Neut % (Auto) (42.2-75.2) % Lymph % (Auto) (20.5-50.1) % [place] % (Auto) (2-8) % Eos % (Auto) (1.0-3.0) % Baso % (Auto) (0.0-1.0) % Add Manual Diff Sodium (135-145) mmol/L Potassium (3.6-5.0) mmol/L Chloride (101-111) mmol/L Carbon Dioxide (21.0-31.0) mmol/L Anion Gap BUN (7-18) mg/dL Creatinine (0.6-1.3) mg/dL Est Cr Clr Drug Dosing mL/min Estimated GFR (MDRD) Glucose (74-105) mg/dL POC Glucose 137 H 90 96 (70-105) mg/dl Calcium (8.4-10.2) mg/dl 11/18/17 11/18/17 11/18/17 Range/Units 06:19 06:19 07:55 WBC 10.7 H (5.0-10.0) 10^3/uL RBC 4.68 (4.6-6.2) 10^6/uL Hgb 14.3 (14.0-18.0) g/dL Hct 42.9 (40.0-54.0) % MCV 91.7 (80-100) fL MCH 30.6 (27.0-34.0) pg MCHC 33.3 (33.0-35.0) g/dL Plt Count 185 (150-450) 10^3/uL Neut % (Auto) 76.3 H (42.2-75.2) % Lymph % (Auto) 10.5 L (20.5-50.1) % [place] % (Auto) 11.5 H (2-8) % Eos % (Auto) 1.5 (1.0-3.0) % Baso % (Auto) 0.2 (0.0-1.0) % Add Manual Diff Sodium 131 L (135-145) mmol/L Potassium 3.4 L (3.6-5.0) mmol/L Chloride 96 L (101-111) mmol/L Carbon Dioxide 26.0 (21.0-31.0) mmol/L Anion Gap 12.4 BUN 25 H (7-18) mg/dL Creatinine 1.2 (0.6-1.3) mg/dL Est Cr Clr Drug Dosing 59.99 mL/min Estimated GFR (MDRD) > 60 Glucose 89 (74-105) mg/dL POC Glucose 99 (70-105) mg/dl Calcium 8.4 (8.4-10.2) mg/dl Med Orders - Current: Current Medications Acetaminophen (Tylenol) 650 mg PO Q4H PRN PRN Reason: Pain (Mild 1-3)/fever Last Admin: 11/17/17 15:26 Dose: 650 mg Aspirin (Halfprin) 81 mg PO DAILY [facility] Last Admin: 11/18/17 08:46 Dose: 81 mg Ceftriaxone Sodium (Rocephin) 1 gm IVPUSH Q24H [facility] Last Admin: 11/17/17 15:17 Dose: 1 gm Clopidogrel Bisulfate (Plavix) 75 mg PO DAILY [facility] Last Admin: 11/18/17 08:46 Dose: 75 mg Docusate Sodium (Colace) 100 mg PO BID PRN PRN Reason: Constipation Furosemide (Lasix) 20 mg PO DAILY [facility] Last Admin: 11/18/17 08:46 Dose: 20 mg Gabapentin (Neurontin) 300 mg PO TID [facility] Last Admin: 11/18/17 08:46 Dose: 300 mg Glipizide (Glucotrol Xl) 5 mg PO DAILY [facility] Last Admin: 11/18/17 08:45 Dose: 5 mg Heparin Sodium (Porcine) (Heparin Sodium) 5,000 units SUBCUT Q8HR [facility] Last Admin: 11/18/17 06:35 Dose: 5,000 units Azithromycin 500 mg/ Sodium (Chloride) 250 mls @ 250 mls/hr IV Q24H [facility] Last Admin: 11/17/17 15:17 Dose: 125 mls/hr Ibuprofen (Motrin) 400 mg PO Q6H PRN PRN Reason: Pain (mild 1-3) Last Admin: 11/18/17 08:47 Dose: 400 mg Insulin Aspart (Novolog) 0 unit SUBCUT TIDAC [facility] PRN Reason: Protocol Last Admin: 11/18/17 08:09 Dose: Not Given Metoprolol Tartrate (Lopressor) 50 mg PO BID [facility] Last Admin: 11/18/17 08:46 Dose: 50 mg Multi-Ingred Cream/Lotion/Oil/Oint (Zinc Oxide) 0 gm TOP Q4H PRN PRN Reason: barrier cream on buttock Nystatin (Nystatin Crm) 0 gm TOP TID [facility] Last Admin: 11/18/17 08:49 Dose: 1 applic Ondansetron HCl (Zofran) 4 mg IVPUSH Q6H PRN PRN Reason: Nausea/Vomiting Potassium Chloride (Klor-Con 10) 40 meq PO ONETIME ONE Stop: 11/18/17 10:00 Potassium Chloride (Klor-Con 10) 20 meq PO DAILY [facility] Sodium Chloride (Saline Flush) 10 ml FLUSH ASDIRECTED PRN PRN Reason: Keep Vein Open Last Admin: 11/17/17 21:00 Dose: 10 ml Sodium Chloride (Saline Flush) 10 ml FLUSH ASDIRECTED PRN PRN Reason: Keep Vein Open Zolpidem Tartrate (Ambien) 5 mg PO BEDTIME PRN PRN Reason: Sleep Last Admin: 11/18/17 00:40 Dose: 5 mg Discontinued Medications Aspirin (Halfprin) 81 mg PO DAILY [facility] Clopidogrel Bisulfate (Plavix) 75 mg PO DAILY [facility] Glipizide (Glucotrol Xl) 5 mg PO BIDMEALS [facility] Hydromorphone HCl (Dilaudid) 1 mg IVPUSH ONETIME ONE Stop: 11/16/17 12:49 Last Admin: 11/16/17 13:05 Dose: 1 mg Lisinopril (Prinivil) 40 mg PO DAILY [facility] - Exam General: Alert, Oriented Neck: Supple Lungs: Normal Respiratory Effort, Decreased Breath Sounds Cardiovascular: Regular Rate, Regular Rhythm GI/Abdominal Exam: Normal Bowel Sounds, Soft, Non-Tender, Other (obese) Extremities: No Pedal Edema, Other (b/l knee non tender to touch, no swelling, no redness, able to lift legs from hip and move them around in the air, c/o pain when bending the knees only) Skin: Warm, Dry Neurological: No New Focal Deficit Psy/Mental Status: Alert, Normal Affect, Normal Mood - Problem List & Annotations (1) Weakness SNOMED Code(s): 93004654 Code(s): R53.1 - WEAKNESS Status: Acute Current Visit: Yes (2) Pneumonia SNOMED Code(s): 680895119 Code(s): J18.9 - PNEUMONIA, UNSPECIFIED ORGANISM Status: Acute Current Visit: Yes (3) CAD (coronary artery disease) SNOMED Code(s): 93769499 Code(s): I25.10 - ATHSCL HEART DISEASE OF [place] CORONARY ARTERY W/O ANG PCTRS Status: Acute Current Visit: Yes Qualifiers: Coronary Disease-Associated Artery/Lesion type: unspecified vessel or lesion type [place] vs. transplanted heart: [place] heart Associated angina: without angina Qualified Code(s): I25.10 - Atherosclerotic heart disease of [place] coronary artery without angina pectoris (4) Diabetes SNOMED Code(s): 38790543 Code(s): E11.9 - TYPE 2 DIABETES MELLITUS WITHOUT COMPLICATIONS Status: Acute Current Visit: Yes - Problem List Review Problem List Initiated/Reviewed/Updated: Yes - My Orders Last 24 Hours: My Active Orders 11/18/17 09:59 Potassium Chloride [Klor-Con 10] 40 meq PO ONETIME ONE 11/19/17 05:15 BASIC METABOLIC PANEL,BMP [CHEM] AM CBC WITH AUTO DIFF [HEME] AM 11/19/17 09:00 Potassium Chloride [Klor-Con 10] 20 meq PO DAILY - Plan Plan:: 67 yo presented with weakness noted to have leukocytosis, mildly elevated lactic acid 1. leukocytosis, mildly elevated lactic acid improved leukocytosis possible pneumonia on cxr with sepsis pending blood cx repeat lactic acid normalized started empiric ceftriaxone, azithromycin 2. Leg edema resolved with lasix replace hypokalemia follow electrolytes 3. Weakness pt/ot eval and treat knee pain is likely arthritic no sign of infection no neurological deficit decubitus ulcer - use duoderm fungal skin infection - started nystatin 4. CAD, PAD, h/o cva cont asa, plavix, metoprolol 5. DM blood sugars appear controlled use glipizide supplemental insulin as needed 7. Hyponatremia Improving Rechecking the morning 8. dvt prophylaxis sq heparin
[2017-11-18] MEDS ORDERED: Potassium Chloride 10 MEQ Tab.ER PO ONE (11:00)
--- NOTE | 2017-11-18 14:49 | EKG ---
11/16/2017- [facility]UBBS - FINDINGS: EKG per my reading shows sinus tachycardia at the rate of 90s. [facility] /[id number]
[2017-11-18] MEDS: cefTRIAXone 1 GM Vial IVPUSH SCH (15:12)
[2017-11-18] MEDS: Azithromycin 500 MG in Sodium Chloride 0.9% 250 ML IV SCH (15:17)
[2017-11-19] MEDS: Heparin Sodium 5,000 Units/ML Vial SUBCUT SCH ×3 (08:06→22:03)
[2017-11-19 08:11] LABS: ANION GAP 12.9; CHLORIDE,CL 100 mmol/L (101-111); SODIUM,NA 134 mmol/L (135-145)
[2017-11-19] MEDS: Insulin Aspart 100 Units/ML 3 ML Pen SUBCUT SCH ×3 (09:16→17:25)
[2017-11-19] MEDS: Gabapentin 300 MG Cap PO SCH ×3 (09:17→22:00)
[2017-11-19] MEDS: Potassium Chloride 10 MEQ Tab.ER PO SCH (09:17)
[2017-11-19] MEDS: Aspirin 81 MG Tab.EC PO SCH (09:17)
[2017-11-19] MEDS: Clopidogrel 75 MG Tab PO SCH (09:18)
[2017-11-19] MEDS: glipiZIDE 5 MG Tab.ER PO SCH (09:18)
[2017-11-19] MEDS: Furosemide 20 MG Tab PO SCH (09:18)
[2017-11-19] MEDS: Metoprolol Tartrate 50 MG Tab PO SCH ×2 (09:18→22:01)
[2017-11-19] MEDS: Ibuprofen 400 MG Tab PO PRN (09:18)
[2017-11-19] MEDS: Nystatin Crm 15 GM Tube TOP SCH ×3 (09:23→22:06)
--- NOTE | 2017-11-19 10:59 | PCM.PN ---
- General Info Date of Service: 11/19/17 Admission Dx/Problem (Free Text): Admission Diagnosis/Problem Admission Diagnosis/Problem Pneumonia Subjective Update: The patient is still feeling quite weak Does have trouble getting in and out of bed Continues to cough. Intensity is improving - Review of Systems General: Reports: Weakness HEENT: Reports: No Symptoms Pulmonary: Reports: Shortness of Breath - Patient Data Vitals - Most Recent: Last Vital Signs Temp 36.4 C 11/19/17 08:33 Pulse 73 11/19/17 09:18 Resp 20 11/19/17 08:33 BP 118/49 L 11/19/17 09:18 Pulse Ox 94 L 11/19/17 08:33 Weight - Most Recent: 128.82 kg I&O - Last 24 Hours: Intake & Output 11/18/17 11/19/17 11/19/17 22:59 06:59 14:59 Intake Total 375 1400 Output Total 1000 Balance 375 400 Lab Results Last 24 Hours: Laboratory Results - last 24 hr 11/18/17 11/18/17 11/18/17 Range/Units 11:53 17:19 21:31 WBC (5.0-10.0) 10^3/uL RBC (4.6-6.2) 10^6/uL Hgb (14.0-18.0) g/dL Hct (40.0-54.0) % MCV (80-100) fL MCH (27.0-34.0) pg MCHC (33.0-35.0) g/dL Plt Count (150-450) 10^3/uL Neut % (Auto) (42.2-75.2) % Lymph % (Auto) (20.5-50.1) % [place] % (Auto) (2-8) % Eos % (Auto) (1.0-3.0) % Baso % (Auto) (0.0-1.0) % Sodium (135-145) mmol/L Potassium (3.6-5.0) mmol/L Chloride (101-111) mmol/L Carbon Dioxide (21.0-31.0) mmol/L Anion Gap BUN (7-18) mg/dL Creatinine (0.6-1.3) mg/dL Est Cr Clr Drug Dosing mL/min Estimated GFR (MDRD) Glucose (74-105) mg/dL POC Glucose 94 83 91 (70-105) mg/dl Calcium (8.4-10.2) mg/dl 11/19/17 11/19/17 11/19/17 Range/Units 07:45 07:45 08:06 WBC 10.2 H (5.0-10.0) 10^3/uL RBC 4.57 L (4.6-6.2) 10^6/uL Hgb 14.1 (14.0-18.0) g/dL Hct 42.5 (40.0-54.0) % MCV 93.0 (80-100) fL MCH 30.9 (27.0-34.0) pg MCHC 33.2 (33.0-35.0) g/dL Plt Count 194 (150-450) 10^3/uL Neut % (Auto) 75.6 H (42.2-75.2) % Lymph % (Auto) 10.9 L (20.5-50.1) % [place] % (Auto) 11.3 H (2-8) % Eos % (Auto) 2.0 (1.0-3.0) % Baso % (Auto) 0.2 (0.0-1.0) % Sodium 134 L (135-145) mmol/L Potassium 3.9 (3.6-5.0) mmol/L Chloride 100 L (101-111) mmol/L Carbon Dioxide 25.0 (21.0-31.0) mmol/L Anion Gap 12.9 BUN 23 H (7-18) mg/dL Creatinine 1.2 (0.6-1.3) mg/dL Est Cr Clr Drug Dosing 59.99 mL/min Estimated GFR (MDRD) > 60 Glucose 110 H (74-105) mg/dL POC Glucose 107 H (70-105) mg/dl Calcium 8.2 L (8.4-10.2) mg/dl Med Orders - Current: Current Medications Acetaminophen (Tylenol) 650 mg PO Q4H PRN PRN Reason: Pain (Mild 1-3)/fever Last Admin: 11/17/17 15:26 Dose: 650 mg Aspirin (Halfprin) 81 mg PO DAILY [facility] Last Admin: 11/19/17 09:17 Dose: 81 mg Ceftriaxone Sodium (Rocephin) 1 gm IVPUSH Q24H [facility] Last Admin: 11/18/17 15:12 Dose: 1 gm Clopidogrel Bisulfate (Plavix) 75 mg PO DAILY [facility] Last Admin: 11/19/17 09:18 Dose: 75 mg Docusate Sodium (Colace) 100 mg PO BID PRN PRN Reason: Constipation Furosemide (Lasix) 20 mg PO DAILY [facility] Last Admin: 11/19/17 09:18 Dose: 20 mg Gabapentin (Neurontin) 300 mg PO TID [facility] Last Admin: 11/19/17 09:17 Dose: 300 mg Glipizide (Glucotrol Xl) 5 mg PO DAILY [facility] Last Admin: 11/19/17 09:18 Dose: 5 mg Heparin Sodium (Porcine) (Heparin Sodium) 5,000 units SUBCUT Q8HR [facility] Last Admin: 11/19/17 08:06 Dose: Not Given Azithromycin 500 mg/ Sodium (Chloride) 250 mls @ 250 mls/hr IV Q24H [facility] Last Infusion: 11/18/17 17:28 Dose: Infused Ibuprofen (Motrin) 400 mg PO Q6H PRN PRN Reason: Pain (mild 1-3) Last Admin: 11/19/17 09:18 Dose: 400 mg Insulin Aspart (Novolog) 0 unit SUBCUT TIDAC [facility] PRN Reason: Protocol Last Admin: 11/19/17 09:16 Dose: Not Given Metoprolol Tartrate (Lopressor) 50 mg PO BID [facility] Last Admin: 11/19/17 09:18 Dose: 50 mg Multi-Ingred Cream/Lotion/Oil/Oint (Zinc Oxide) 0 gm TOP Q4H PRN PRN Reason: barrier cream on buttock Nystatin (Nystatin Crm) 0 gm TOP TID [facility] Last Admin: 11/19/17 09:23 Dose: 1 applic Ondansetron HCl (Zofran) 4 mg IVPUSH Q6H PRN PRN Reason: Nausea/Vomiting Potassium Chloride (Klor-Con 10) 20 meq PO DAILY [facility] Last Admin: 11/19/17 09:17 Dose: 20 meq Sodium Chloride (Saline Flush) 10 ml FLUSH ASDIRECTED PRN PRN Reason: Keep Vein Open Last Admin: 11/17/17 21:00 Dose: 10 ml Sodium Chloride (Saline Flush) 10 ml FLUSH ASDIRECTED PRN PRN Reason: Keep Vein Open Zolpidem Tartrate (Ambien) 5 mg PO BEDTIME PRN PRN Reason: Sleep Last Admin: 11/18/17 22:24 Dose: 5 mg Discontinued Medications Aspirin (Halfprin) 81 mg PO DAILY [facility] Clopidogrel Bisulfate (Plavix) 75 mg PO DAILY [facility] Glipizide (Glucotrol Xl) 5 mg PO BIDMEALS AMOL Hydromorphone HCl (Dilaudid) 1 mg IVPUSH ONETIME ONE Stop: 11/16/17 12:49 Last Admin: 11/16/17 13:05 Dose: 1 mg Lisinopril (Prinivil) 40 mg PO DAILY AMOL Potassium Chloride (Klor-Con 10) 40 meq PO ONETIME ONE Stop: 11/18/17 11:01 Last Admin: 11/18/17 11:35 Dose: 40 meq - Exam General: Alert, Oriented, Cooperative Lungs: Decreased Breath Sounds GI/Abdominal Exam: Soft, Non-Tender Extremities: Normal Range of Motion Skin: Warm - Problem List Review Problem List Initiated/Reviewed/Updated: Yes - Plan Plan:: 67 yo presented with weakness noted to have leukocytosis, mildly elevated lactic acid 1. leukocytosis, mildly elevated lactic acid improved leukocytosis possible pneumonia on cxr with sepsis repeat lactic acid normalized Blood cultures are negative 2. Leg edema resolved with lasix 3. Weakness pt/ot eval and treat knee pain is likely arthritic no sign of infection no neurological deficit decubitus ulcer - use duoderm fungal skin infection - started nystatin 4. CAD, PAD, h/o cva cont asa, plavix, metoprolol 5. DM blood sugars appear controlled use glipizide supplemental insulin as needed 7. Hyponatremia Improving 8. dvt prophylaxis sq heparin Plan: Send sample for basic metabolic panel Obtain complete blood count Continue physical therapy Continue intravenous antibiotics at this point Patient does not feel comfortable being discharged today
[2017-11-19] MEDS: cefTRIAXone 1 GM Vial IVPUSH SCH (14:06)
[2017-11-19] MEDS: Azithromycin 500 MG in Sodium Chloride 0.9% 250 ML IV SCH (14:08)
[2017-11-19] MEDS: Sodium Chloride 0.9% 10 ML Syringe FLUSH PRN (22:30)
[2017-11-20] MEDS: Heparin Sodium 5,000 Units/ML Vial SUBCUT SCH (06:09)
[2017-11-20 07:17] VITALS: BP 118/54
[2017-11-20] MEDS: Insulin Aspart 100 Units/ML 3 ML Pen SUBCUT SCH (08:47)
[2017-11-20] MEDS: Furosemide 20 MG Tab PO SCH (09:22)
[2017-11-20] MEDS: Potassium Chloride 10 MEQ Tab.ER PO SCH (09:22)
[2017-11-20] MEDS: Aspirin 81 MG Tab.EC PO SCH (09:23)
[2017-11-20] MEDS: Gabapentin 300 MG Cap PO SCH (09:23)
[2017-11-20] MEDS: Clopidogrel 75 MG Tab PO SCH (09:23)
[2017-11-20] MEDS: glipiZIDE 5 MG Tab.ER PO SCH (09:24)
[2017-11-20] MEDS: Metoprolol Tartrate 50 MG Tab PO SCH (09:24)
[2017-11-20] MEDS: Sodium Chloride 0.9% 10 ML Syringe FLUSH PRN (09:25)
[2017-11-20] MEDS: Nystatin Crm 15 GM Tube TOP SCH (09:26)
--- NOTE | 2017-11-20 11:18 | PN ---
DATE: 11/20/2017 SUBJECTIVE: The patient is slowly improving, so far, has not had any problems with significant coughing or any shortness of breath, but he is still weak with his legs though. But otherwise, no other complaints. No chest pain, abdominal pain, nausea, or vomiting. LABORATORY DATA: Lab workup this morning, blood sugar is 100. OBJECTIVE: Vital Signs: Blood pressure is 118/54, pulse 71, respirations of 20, and temperature of 98.4. Heart: Regular rate and rhythm. Normal S1 and S2. No gallops. No rubs. Lungs: Equal bilaterally. No significant crackles. No wheezing. Abdomen: Obese, soft, and nontender. Bowel sounds positive. Extremities: Negative for any calf tenderness. There is trace bilateral pedal edema. PLAN: We will transfer the patient to Swing Bed today, and we will continue with PT and OT, and we will continue with the rest of his management. [facility] /[id number]
--- NOTE | 2017-11-21 04:06 | DISCH ---
FINAL DIAGNOSES: 1. Pneumonia. 2. Diabetes mellitus. 3. General debility. 4. History of cerebrovascular accident. 5. Coronary artery disease. 6. Obesity. BRIEF HISTORY OF PRESENT ILLNESS: Please see H and P. PERTINENT LAB, X-RAY, AND OTHER TESTS: Please see H and P. HOSPITAL COURSE: The patient was admitted to General Medicine floor. He was started on IV antibiotics including azithromycin and ceftriaxone for his pneumonia. He was given IV Lasix for his pedal edema and was continued on his home medication. The patient did well with the above with improvement of his cough, but the patient continued to have generalized weakness, especially with his legs, and because of this, he was then transferred to swing bed for further PT and OT. CONDITION ON TRANSFER TO SWING BED: Stable. [facility] /[id number]
== END 2017-11-20 10:37 | disposition swing bed (61) | DRG 194 ==
LOC: DL.ED 11:29 → INTOOBSV 14:14 → DL.MS 14:14 → OBSVTOIN 14:14 → UNDOADMOB 14:14 → OBSVTOIN 14:52 → DL.MS 14:52
PROVIDERS: ADMIT Internal Medicine; ATTEND Internal Medicine
DX: J18.9 Pneumonia, unspecified organism (principal); Z68.41 Body mass index [BMI] 40.0-44.9, adult; E87.1 Hypo-osmolality and hyponatremia; R53.1 Weakness; M79.89 Other specified soft tissue disorders; E11.622 Type 2 diabetes mellitus with other skin ulcer; E11.42 Type 2 diabetes mellitus with diabetic polyneuropathy; L98.421 Non-pressure chronic ulcer of back limited to breakdown of skin; I25.10 Atherosclerotic heart disease of native coronary artery without angina pectoris; F17.210 Nicotine dependence, cigarettes, uncomplicated; I73.9 Peripheral vascular disease, unspecified; Z86.73 Personal history of transient ischemic attack (TIA), and cerebral infarction without residual deficits; I10 Essential (primary) hypertension; R53.81 Other malaise; E66.01 Morbid (severe) obesity due to excess calories; M54.9 Dorsalgia, unspecified; G89.29 Other chronic pain; I25.2 Old myocardial infarction; Z95.1 Presence of aortocoronary bypass graft; Z79.82 Long term (current) use of aspirin; Z79.84 Long term (current) use of oral hypoglycemic drugs; R06.2 Wheezing
CPT/HCPCS: 71045; 99285 ×2; 96374; 93005; 93010; 85025; 81001; 36415; 80053; 84484; 83880; 83605; 87040 ×2; J1170; J7050; 80048; 82550; 82962; 83735; 84100; 97116-GP; 97163-GP; 97166-GO; 97530-GO; 97535-GO; A9270-GY; J0456; J0696; J1644; J1815-GY

== ENCOUNTER 2017-11-20 10:19 | Inpatient (IN) | payer MEDICARE ==
[2017-11-20] MEDS ORDERED: Sodium Chloride 0.9% 10 ML Syringe FLUSH PRN ×3 (11:11→11:16)
[2017-11-20] MEDS ORDERED: Docusate Sodium 100 MG Cap PO PRN (11:11)
[2017-11-20] MEDS ORDERED: Ondansetron 4 MG/2 ML SDV IVPUSH PRN (11:11)
[2017-11-20] MEDS ORDERED: Zolpidem 5 MG Tab PO PRN (11:11)
[2017-11-20] MEDS: Gabapentin 300 MG Cap PO SCH ×2 (14:35→20:37)
[2017-11-20] MEDS: Heparin Sodium 5,000 Units/ML Vial SUBCUT SCH ×2 (14:36→21:47)
[2017-11-20] MEDS: cefTRIAXone 1 GM Vial IVPUSH SCH (14:38)
[2017-11-20] MEDS: Azithromycin 500 MG in Sodium Chloride 0.9% 250 ML IV SCH (14:39)
[2017-11-20] MEDS: Sodium Chloride 0.9% 10 ML Syringe FLUSH PRN ×2 (14:39→15:50)
[2017-11-20] MEDS: Nystatin Crm 15 GM Tube TOP SCH ×2 (14:43→20:37)
[2017-11-20] MEDS: Insulin Aspart 100 Units/ML 3 ML Pen SUBCUT SCH (17:26)
--- NOTE | 2017-11-20 17:33 | HP ---
CHIEF COMPLAINT: Generalized weakness and leg weakness. HISTORY OF PRESENT ILLNESS: The patient is a 67-year-old gentleman, who was admitted to [facility] a week ago because of pneumonia and generalized weakness, and recently was given IV antibiotics and IV fluids and he responded well, and his cough and shortness of breath has improved, but his generalized weakness continued especially with the legs and because of this, he was transferred to swing bed for more PT and OT. PAST MEDICAL HISTORY: Remarkable for the recent admission for pneumonia, he has diabetes mellitus, coronary artery disease, obesity, and history of CVA. MEDICATIONS: 1. Tylenol. 2. Aspirin. 3. Azithromycin. 4. Ceftriaxone. 5. Plavix. 6. Docusate. 7. Lasix. 8. Gabapentin. 9. Glipizide. 10.Heparin. 11.Ibuprofen. 12.Insulin aspart. 13.Nystatin. 14.Potassium chloride. 15.Ambien. ALLERGIES: No known drug allergies. PHYSICAL EXAMINATION: General: The patient is alert and oriented, not in any acute distress. Vital Signs: Stable. HEENT: Normocephalic. There is pink palpebral conjunctiva. Sclerae anicteric. Heart: Regular rate and rhythm. Normal S1 and S2. No gallops. No rubs. Lungs: Coarse breath sounds, but no significant crackles. No wheezing. Abdomen: Obese, soft, and nontender. Bowel sounds are positive. Extremities: Remarkable for trace bilateral pedal edema. Otherwise, no calf tenderness. IMPRESSION: 1. Generalized debility and leg weakness. 2. Pneumonia. 3. Diabetes mellitus. 4. Coronary artery disease. 5. History of cerebrovascular accident. TREATMENT PLAN: The patient is going to be continued on his current medication, and we will continue with PT and OT. [facility] /[id number]
[2017-11-20] MEDS: Metoprolol Tartrate 50 MG Tab PO SCH (20:36)
[2017-11-21] MEDS: Heparin Sodium 5,000 Units/ML Vial SUBCUT SCH ×3 (05:43→21:56)
[2017-11-21] MEDS: Potassium Chloride 10 MEQ Tab.ER PO SCH (08:16)
[2017-11-21] MEDS: Acetaminophen 325 MG Tab PO PRN ×2 (08:17→20:11)
[2017-11-21] MEDS: Insulin Aspart 100 Units/ML 3 ML Pen SUBCUT SCH ×3 (08:18→17:27)
[2017-11-21] MEDS: Gabapentin 300 MG Cap PO SCH ×3 (10:44→20:12)
[2017-11-21] MEDS: Aspirin 81 MG Tab.EC PO SCH (10:44)
[2017-11-21] MEDS: glipiZIDE 5 MG Tab.ER PO SCH (10:44)
[2017-11-21] MEDS: Clopidogrel 75 MG Tab PO SCH (10:45)
[2017-11-21] MEDS: Furosemide 20 MG Tab PO SCH (10:45)
[2017-11-21] MEDS: Metoprolol Tartrate 50 MG Tab PO SCH ×2 (10:45→20:12)
[2017-11-21] MEDS: Nystatin Crm 15 GM Tube TOP SCH ×3 (10:46→21:57)
[2017-11-21] MEDS: Azithromycin 500 MG in Sodium Chloride 0.9% 250 ML IV SCH (15:09)
[2017-11-21] MEDS: cefTRIAXone 1 GM Vial IVPUSH SCH (15:11)
[2017-11-21] MEDS: Sodium Chloride 0.9% 10 ML Syringe FLUSH PRN ×2 (15:12→16:19)
[2017-11-22] MEDS: Acetaminophen 325 MG Tab PO PRN ×3 (00:19→11:03)
[2017-11-22] MEDS: Heparin Sodium 5,000 Units/ML Vial SUBCUT SCH ×3 (06:04→21:00)
[2017-11-22] MEDS: Nystatin Crm 15 GM Tube TOP SCH ×3 (08:29→20:49)
[2017-11-22] MEDS: Insulin Aspart 100 Units/ML 3 ML Pen SUBCUT SCH ×3 (08:29→17:17)
[2017-11-22] MEDS: Metoprolol Tartrate 50 MG Tab PO SCH ×2 (08:30→20:48)
[2017-11-22] MEDS: Furosemide 20 MG Tab PO SCH (08:30)
[2017-11-22] MEDS: Clopidogrel 75 MG Tab PO SCH (08:31)
[2017-11-22] MEDS: Potassium Chloride 10 MEQ Tab.ER PO SCH (08:31)
[2017-11-22] MEDS: glipiZIDE 5 MG Tab.ER PO SCH (08:31)
[2017-11-22] MEDS: Gabapentin 300 MG Cap PO SCH ×3 (08:31→20:48)
[2017-11-22] MEDS: Aspirin 81 MG Tab.EC PO SCH (08:31)
[2017-11-22] MEDS: traMADol 50 MG Tab PO PRN ×2 (13:05→20:48)
[2017-11-22] MEDS ORDERED: Azithromycin 500 MG Vial ONE ×2 (14:45→14:48)
[2017-11-22] MEDS: Azithromycin 500 MG in Sodium Chloride 0.9% 250 ML IV SCH (14:58)
[2017-11-22] MEDS: cefTRIAXone 1 GM Vial IVPUSH SCH (14:59)
[2017-11-22] MEDS: Sodium Chloride 0.9% 10 ML Syringe FLUSH PRN (14:59)
[2017-11-23] MEDS: Ibuprofen 400 MG Tab PO PRN (00:20)
[2017-11-23] MEDS: Heparin Sodium 5,000 Units/ML Vial SUBCUT SCH ×3 (05:27→21:49)
[2017-11-23] MEDS: Gabapentin 300 MG Cap PO SCH ×3 (08:03→21:48)
[2017-11-23] MEDS: Potassium Chloride 10 MEQ Tab.ER PO SCH (08:03)
[2017-11-23] MEDS: Aspirin 81 MG Tab.EC PO SCH (08:03)
[2017-11-23] MEDS: Clopidogrel 75 MG Tab PO SCH (08:03)
[2017-11-23] MEDS: traMADol 50 MG Tab PO PRN ×2 (08:04→19:31)
[2017-11-23] MEDS: Metoprolol Tartrate 50 MG Tab PO SCH ×2 (08:05→21:48)
[2017-11-23] MEDS: glipiZIDE 5 MG Tab.ER PO SCH (08:05)
[2017-11-23] MEDS: Furosemide 20 MG Tab PO SCH (08:05)
[2017-11-23] MEDS: Insulin Aspart 100 Units/ML 3 ML Pen SUBCUT SCH ×3 (08:09→16:54)
[2017-11-23] MEDS: Nystatin Crm 15 GM Tube TOP SCH ×3 (09:30→21:49)
[2017-11-23] MEDS: Sodium Chloride 0.9% 10 ML Syringe FLUSH PRN (14:05)
[2017-11-23] MEDS: cefTRIAXone 1 GM Vial IVPUSH SCH (14:05)
[2017-11-23] MEDS: Azithromycin 500 MG in Sodium Chloride 0.9% 250 ML IV SCH (14:11)
[2017-11-24] MEDS: Heparin Sodium 5,000 Units/ML Vial SUBCUT SCH ×3 (05:19→22:14)
[2017-11-24] MEDS: Insulin Aspart 100 Units/ML 3 ML Pen SUBCUT SCH ×3 (08:33→17:47)
[2017-11-24] MEDS: glipiZIDE 5 MG Tab.ER PO SCH (08:34)
[2017-11-24] MEDS: Clopidogrel 75 MG Tab PO SCH (08:34)
[2017-11-24] MEDS: Gabapentin 300 MG Cap PO SCH ×3 (08:34→22:14)
[2017-11-24] MEDS: Potassium Chloride 10 MEQ Tab.ER PO SCH (08:34)
[2017-11-24] MEDS: Furosemide 20 MG Tab PO SCH (08:35)
[2017-11-24] MEDS: Aspirin 81 MG Tab.EC PO SCH (08:35)
[2017-11-24] MEDS: Metoprolol Tartrate 50 MG Tab PO SCH ×2 (08:36→22:10)
[2017-11-24] MEDS: Nystatin Crm 15 GM Tube TOP SCH ×3 (08:37→22:16)
[2017-11-24] MEDS: traMADol 50 MG Tab PO PRN (10:38)
[2017-11-24] MEDS: Ibuprofen 400 MG Tab PO PRN ×2 (10:39→22:13)
[2017-11-24] MEDS: traMADol 50 MG Tab PO SCH ×2 (13:14→22:11)
[2017-11-24] MEDS: cefTRIAXone 1 GM Vial IVPUSH SCH (14:54)
[2017-11-24] MEDS: Azithromycin 500 MG in Sodium Chloride 0.9% 250 ML IV SCH (14:54)
[2017-11-24] MEDS: Sodium Chloride 0.9% 10 ML Syringe FLUSH PRN (17:10)
[2017-11-24] MEDS ORDERED: Menthol/Methyl Salicylate 85 GM Tube TOP ONE (18:25)
[2017-11-25] MEDS: Heparin Sodium 5,000 Units/ML Vial SUBCUT SCH ×3 (06:32→21:09)
[2017-11-25] MEDS: traMADol 50 MG Tab PO SCH ×3 (06:33→21:05)
[2017-11-25] MEDS: Ibuprofen 400 MG Tab PO PRN ×2 (06:34→13:43)
[2017-11-25] MEDS: Nystatin Crm 15 GM Tube TOP SCH ×3 (08:40→21:08)
[2017-11-25] MEDS: Clopidogrel 75 MG Tab PO SCH (08:41)
[2017-11-25] MEDS: Metoprolol Tartrate 50 MG Tab PO SCH ×2 (08:41→21:04)
[2017-11-25] MEDS: Aspirin 81 MG Tab.EC PO SCH (08:41)
[2017-11-25] MEDS: Furosemide 20 MG Tab PO SCH (08:41)
[2017-11-25] MEDS: Potassium Chloride 10 MEQ Tab.ER PO SCH (08:41)
[2017-11-25] MEDS: glipiZIDE 5 MG Tab.ER PO SCH (08:41)
[2017-11-25] MEDS: Gabapentin 300 MG Cap PO SCH ×3 (08:41→21:05)
[2017-11-25] MEDS: Insulin Aspart 100 Units/ML 3 ML Pen SUBCUT SCH ×3 (08:42→17:38)
[2017-11-25] MEDS: Menthol/Methyl Salicylate 85 GM Tube TOP PRN (13:48)
[2017-11-25] MEDS: cefTRIAXone 1 GM Vial IVPUSH SCH (15:00)
[2017-11-25] MEDS: Azithromycin 500 MG in Sodium Chloride 0.9% 250 ML IV SCH (15:02)
[2017-11-26] MEDS: traMADol 50 MG Tab PO SCH ×3 (06:02→23:15)
[2017-11-26] MEDS: Heparin Sodium 5,000 Units/ML Vial SUBCUT SCH ×3 (06:04→23:16)
[2017-11-26] MEDS: Menthol/Methyl Salicylate 85 GM Tube TOP PRN ×2 (06:12→14:13)
[2017-11-26] MEDS: Insulin Aspart 100 Units/ML 3 ML Pen SUBCUT SCH ×2 (08:15→17:14)
[2017-11-26] MEDS: Potassium Chloride 10 MEQ Tab.ER PO SCH (08:37)
[2017-11-26] MEDS: glipiZIDE 5 MG Tab.ER PO SCH (08:37)
[2017-11-26] MEDS: Clopidogrel 75 MG Tab PO SCH (08:37)
[2017-11-26] MEDS: Gabapentin 300 MG Cap PO SCH ×3 (08:37→20:47)
[2017-11-26] MEDS: Aspirin 81 MG Tab.EC PO SCH (08:37)
[2017-11-26] MEDS: Furosemide 20 MG Tab PO SCH (08:38)
[2017-11-26] MEDS: Metoprolol Tartrate 50 MG Tab PO SCH ×2 (08:38→20:46)
[2017-11-26] MEDS: Nystatin Crm 15 GM Tube TOP SCH ×2 (08:39→20:48)
[2017-11-26] MEDS: cefTRIAXone 1 GM Vial IVPUSH SCH (15:37)
[2017-11-26] MEDS: Sodium Chloride 0.9% 10 ML Syringe FLUSH PRN ×2 (15:37→21:00)
[2017-11-26] MEDS: Azithromycin 500 MG in Sodium Chloride 0.9% 250 ML IV SCH (15:43)
[2017-11-27] MEDS: traMADol 50 MG Tab PO SCH ×3 (06:07→22:20)
[2017-11-27] MEDS: Heparin Sodium 5,000 Units/ML Vial SUBCUT SCH ×3 (06:08→22:22)
[2017-11-27] MEDS: Insulin Aspart 100 Units/ML 3 ML Pen SUBCUT SCH ×2 (08:26→17:05)
[2017-11-27] MEDS: Aspirin 81 MG Tab.EC PO SCH (08:47)
[2017-11-27] MEDS: Potassium Chloride 10 MEQ Tab.ER PO SCH (08:47)
[2017-11-27] MEDS: Metoprolol Tartrate 50 MG Tab PO SCH ×2 (08:47→22:19)
[2017-11-27] MEDS: Furosemide 20 MG Tab PO SCH (08:47)
[2017-11-27] MEDS: Clopidogrel 75 MG Tab PO SCH (08:48)
[2017-11-27] MEDS: glipiZIDE 5 MG Tab.ER PO SCH (08:48)
[2017-11-27] MEDS: Azithromycin 250 MG Tab PO SCH (08:48)
[2017-11-27] MEDS: Gabapentin 300 MG Cap PO SCH ×3 (08:48→22:19)
[2017-11-27] MEDS: Nystatin Crm 15 GM Tube TOP SCH ×2 (08:49→22:21)
[2017-11-27] MEDS: Menthol/Methyl Salicylate 85 GM Tube TOP PRN (14:32)
[2017-11-28] MEDS: Heparin Sodium 5,000 Units/ML Vial SUBCUT SCH ×2 (06:15→13:31)
[2017-11-28] MEDS: traMADol 50 MG Tab PO SCH ×2 (06:16→13:29)
[2017-11-28 08:36] VITALS: BP 134/60
[2017-11-28] MEDS: Insulin Aspart 100 Units/ML 3 ML Pen SUBCUT SCH (08:46)
[2017-11-28] MEDS: Clopidogrel 75 MG Tab PO SCH (08:47)
[2017-11-28] MEDS: Gabapentin 300 MG Cap PO SCH ×2 (08:47→13:29)
[2017-11-28] MEDS: Furosemide 20 MG Tab PO SCH (08:47)
[2017-11-28] MEDS: Potassium Chloride 10 MEQ Tab.ER PO SCH (08:47)
[2017-11-28] MEDS: Aspirin 81 MG Tab.EC PO SCH (08:47)
[2017-11-28] MEDS: Azithromycin 250 MG Tab PO SCH (08:48)
[2017-11-28] MEDS: Metoprolol Tartrate 50 MG Tab PO SCH (08:48)
[2017-11-28] MEDS: glipiZIDE 5 MG Tab.ER PO SCH (08:48)
[2017-11-28] MEDS: Menthol/Methyl Salicylate 85 GM Tube TOP PRN (08:49)
[2017-11-28] MEDS: Nystatin Crm 15 GM Tube TOP SCH (08:49)
--- NOTE | 2017-11-28 11:00 | PCM.DCSUM1 ---
Discharge Summary - Hospital Course Free Text/Narrative:: Mr. Diallo is a 67-year-old gentleman who was admitted to [facility] acute care with pneumonia. He was treated with IV fluids and IV antibiotics. He did well but was noted to have significant weakness. The patient was admitted to [facility] bed for further physical and occupational therapy During his stay he did well with therapies and by today he appears that he recovered good function. His diabetes, coronary artery disease remained stable. - Discharge Data Discharge Date: 11/28/17 Discharge Disposition: Home, Self-Care 01 Condition: Good - Discharge Diagnosis/Problem(s) (1) Weakness SNOMED Code(s): 50274363 ICD Code: R53.1 - WEAKNESS Status: Acute Current Visit: No - Patient Summary/Data Consults: Consultations 11/20/17 11:11 OT Evaluation and Treatment [CONS] Routine PT Evaluation and Treatment [CONS] Routine - Patient Instructions Diet: Heart Healthy Diet Activity: As Tolerated - Discharge Plan Prescriptions/Med Rec: Furosemide [Lasix] 20 mg PO DAILY #30 tablet glipiZIDE [Glucotrol XL] 5 mg PO DAILY #30 tab.er Potassium Chloride [Klor-Con 10] 20 meq PO DAILY@0800 #30 tab.er traMADol [Ultram] 50 mg PO Q8H #12 tablet Home Medications: Home Meds Aspirin [Ecotrin] 81 mg PO DAILY 11/16/17 [History] Clopidogrel Bisulfate [Plavix] 75 mg PO DAILY 11/16/17 [History] Gabapentin [Neurontin] 400 mg PO TID 11/16/17 [History] Metoprolol Tartrate 50 mg PO BID 11/16/17 [History] Furosemide [Lasix] 20 mg PO DAILY #30 tablet 11/28/17 [Rx] Potassium Chloride [Klor-Con 10] 20 meq PO DAILY@0800 #30 tab.er 11/28/17 [Rx] glipiZIDE [Glucotrol XL] 5 mg PO DAILY #30 tab.er 11/28/17 [Rx] traMADol [Ultram] 50 mg PO Q8H #12 tablet 11/28/17 [Rx] - General Info Date of Service: 11/28/17 - Review of Systems General: Denies: Fever, Weakness Pulmonary: Denies: Shortness of Breath Cardiovascular: Denies: Chest Pain Gastrointestinal: Denies: Abdominal Pain - Patient Data Vitals - Most Recent: Last Vital Signs Temp 36.3 C 11/28/17 08:35 Pulse 60 11/28/17 08:48 Resp 20 11/28/17 08:35 BP 134/60 11/28/17 08:48 Pulse Ox 91 L 11/28/17 08:35 Weight - Most Recent: 128.185 kg I&O - Last 24 hours: Intake & Output 11/27/17 11/28/17 11/28/17 22:59 06:59 14:59 Intake Total 300 Balance 300 Lab Results - Last 24 hrs: Laboratory Results - last 24 hr 11/27/17 11/27/17 11/28/17 Range/Units 11:15 16:59 08:12 POC Glucose 110 H 86 108 H (70-105) mg/dl Med Orders - Current: Current Medications Acetaminophen (Tylenol) 650 mg PO Q4H PRN PRN Reason: Pain (Mild 1-3)/fever Last Admin: 11/22/17 11:03 Dose: 650 mg Aspirin (Halfprin) 81 mg PO DAILY [facility] Last Admin: 11/28/17 08:47 Dose: 81 mg Azithromycin (Zithromax) 500 mg PO DAILY [facility] Last Admin: 11/28/17 08:48 Dose: 500 mg Clopidogrel Bisulfate (Plavix) 75 mg PO DAILY [facility] Last Admin: 11/28/17 08:47 Dose: 75 mg Docusate Sodium (Colace) 100 mg PO BID PRN PRN Reason: Constipation Furosemide (Lasix) 20 mg PO DAILY [facility] Last Admin: 11/28/17 08:47 Dose: 20 mg Gabapentin (Neurontin) 300 mg PO TID [facility] Last Admin: 11/28/17 08:47 Dose: 300 mg Glipizide (Glucotrol Xl) 5 mg PO DAILY [facility] Last Admin: 11/28/17 08:48 Dose: 5 mg Heparin Sodium (Porcine) (Heparin Sodium) 5,000 units SUBCUT Q8HR [facility] Last Admin: 11/28/17 06:15 Dose: 5,000 units Ibuprofen (Motrin) 400 mg PO Q6H PRN PRN Reason: Pain (mild 1-3) Last Admin: 11/25/17 13:43 Dose: 400 mg Insulin Aspart (Novolog) 0 unit SUBCUT BID@0700,1700 [facility] PRN Reason: Protocol Last Admin: 11/28/17 08:46 Dose: Not Given Methyl Salicylate (Icy Hot Cream) 0.2 gm TOP TID PRN PRN Reason: Pain Last Admin: 11/28/17 08:49 Dose: 1 applic Metoprolol Tartrate (Lopressor) 50 mg PO BID [facility] Last Admin: 11/28/17 08:48 Dose: 50 mg Multi-Ingred Cream/Lotion/Oil/Oint (Zinc Oxide) 0 gm TOP Q4H PRN PRN Reason: barrier cream on buttock Nystatin (Nystatin Crm) 0 gm TOP BID [facility] Last Admin: 11/28/17 08:49 Dose: 1 applic Ondansetron HCl (Zofran) 4 mg IVPUSH Q6H PRN PRN Reason: Nausea/Vomiting Potassium Chloride (Klor-Con 10) 20 meq PO DAILY@0800 [facility] Last Admin: 11/28/17 08:47 Dose: 20 meq Sodium Chloride (Saline Flush) 10 ml FLUSH ASDIRECTED PRN PRN Reason: Keep Vein Open Last Admin: 11/26/17 21:00 Dose: 10 ml Sodium Chloride (Saline Flush) 10 ml FLUSH ASDIRECTED PRN PRN Reason: Keep Vein Open Tramadol HCl (Ultram) 50 mg PO Q8H [facility] Last Admin: 11/28/17 06:16 Dose: 50 mg Zolpidem Tartrate (Ambien) 5 mg PO BEDTIME PRN PRN Reason: Sleep Discontinued Medications Azithromycin (Zithromax) Confirm Administered Dose 500 mg .ROUTE .STK-MED ONE Stop: 11/22/17 14:46 Last Admin: 11/22/17 15:00 Dose: Not Given Azithromycin (Zithromax) Confirm Administered Dose 500 mg .ROUTE .STK-MED ONE Stop: 11/22/17 14:49 Last Admin: 11/22/17 15:00 Dose: Not Given Ceftriaxone Sodium (Rocephin) 1 gm IVPUSH Q24H [facility] Last Admin: 11/26/17 15:37 Dose: 1 gm Azithromycin 500 mg/ Sodium (Chloride) 250 mls @ 250 mls/hr IV Q24H [facility] Last Infusion: 11/26/17 18:22 Dose: Infused Insulin Aspart (Novolog) 0 unit SUBCUT TIDAC [facility] PRN Reason: Protocol Last Admin: 11/25/17 17:38 Dose: Not Given Methyl Salicylate (Icy Hot Cream) 0 gm TOP TID ONE Stop: 11/24/17 18:26 Last Admin: 11/24/17 22:22 Dose: Not Given Nystatin (Nystatin Crm) 0 gm TOP TID AMOL Last Admin: 11/25/17 16:35 Dose: 1 applic Tramadol HCl (Ultram) 50 mg PO Q8H PRN PRN Reason: Pain Last Admin: 11/24/17 10:38 Dose: 50 mg - Exam General: Reports: Alert, Oriented Neck: Reports: Supple Lungs: Reports: Normal Respiratory Effort, Decreased Breath Sounds Cardiovascular: Reports: Regular Rate, Regular Rhythm GI/Abdominal Exam: Normal Bowel Sounds, Soft, Non-Tender Extremities: No Pedal Edema *Q Meaningful Use (DIS) - VTE *Q VTE Criteria *Q: - Stroke *Q Stroke Criteria *Q: - AMI *Q AMI Criteria *Q:
== END 2017-11-28 15:15 | disposition home or self-care (01) | DRG 947 ==
LOC: UNDOADMIN 10:48 → DL.MS 10:48
PROVIDERS: ADMIT Internal Medicine; ATTEND Internal Medicine
DX: R53.1 Weakness (principal); J18.9 Pneumonia, unspecified organism; I25.10 Atherosclerotic heart disease of native coronary artery without angina pectoris; E11.9 Type 2 diabetes mellitus without complications; E66.9 Obesity, unspecified; Z86.73 Personal history of transient ischemic attack (TIA), and cerebral infarction without residual deficits; Z79.84 Long term (current) use of oral hypoglycemic drugs; Z79.02 Long term (current) use of antithrombotics/antiplatelets; Z79.82 Long term (current) use of aspirin; Z79.4 Long term (current) use of insulin; Z79.899 Other long term (current) drug therapy
CPT/HCPCS: 82962; 97110-GP; 97116-GP; 97162-GP; 97165-GO; 97530-GO; 97535-GO; A9270-GY; J0456; J0696; J1644; J7050

== ENCOUNTER 2020-05-30 08:20 | Inpatient (IN) | payer OTHER ==
--- NOTE | 2020-05-30 08:27 | EDM.PDOC ---
ED HPI GENERAL MEDICAL PROBLEM - General Chief Complaint: Cardiovascular Problem Stated Complaint: AMBULANCE Time Seen by Provider: 05/30/20 08:26 Source of Information: Reports: Patient, EMS, RN, RN Notes Reviewed History Limitations: Reports: No Limitations - History of Present Illness INITIAL COMMENTS - FREE TEXT/NARRATIVE: Pt arrives to ER from home by ambulance with report that he has increasing lower extremity edema, feels fluid overloaded, and has become too weak to get himself out of bed and cannot stand or walk. Denies chest pain, cough, orthopnea, fall, or injury. Onset: Gradual Duration: Constant, Getting Worse Location: Reports: Generalized Severity: Severe Improves with: Reports: None Worsens with: Reports: Other (Activity, exertion) Associated Symptoms: Reports: No Other Symptoms - Related Data Allergies Allergy/AdvReac Type Severity Reaction Status Date / Time No Known Allergies Allergy Verified 05/30/20 08:28 Past Medical History Cardiovascular History: Reports: CAD, Heart Failure Respiratory History: Reports: Pneumonia, Recurrent Endocrine/Metabolic History: Reports: Diabetes, Type II, Obesity/BMI 30+ Social & Family History - Family History Family Medical History: Noncontributory - Living Situation & Occupation Living situation: Reports: Single, Alone Occupation: Retired ED ROS GENERAL - Review of Systems Review Of Systems: Comprehensive ROS is negative, except as noted in HPI. ED EXAM, GENERAL - Physical Exam Exam: See Below Exam Limited By: No Limitations General Appearance: Alert, No Apparent Distress, Obese, Other (Chronically ill appearing) Eye Exam: Bilateral Eye: Normal Inspection Nose: Normal Inspection Throat/Mouth: Normal Inspection, Normal Lips, Normal Voice, No Airway Compromise Head: Atraumatic, Normocephalic Neck: Normal Inspection, Full Range of Motion. No: Lymphadenopathy (L), Lymphadenopathy (R) Respiratory/Chest: No Respiratory Distress, No Accessory Muscle Use, Chest Non- Tender, Decreased Breath Sounds, Rales Cardiovascular: Regular Rate, Rhythm, Other (+2 pitting edema of B/L lower extremities to knees) GI/Abdominal: Normal Bowel Sounds, Soft, Non-Tender, Other (Benign obese abdomen with a periumbilical hernia) Back Exam: Normal Inspection Extremities: Normal Range of Motion, Pedal Edema, Other (Chronic appearing venous stasis changes). No: Joint Swelling Neurological: Alert, Oriented, No Motor/Sensory Deficits, Other (Genernealized weakness) Psychiatric: Normal Affect, Normal Mood Skin Exam: Warm, Dry EKG INTERPRETATION EKG Date: 05/30/20 Time: 08:30 Rhythm: Other (SR) Rate (Beats/Min): 89 [place]: Normal P-Wave: Present QRS: Other (old inferior Q waves) ST-T: Normal QT: Normal Comparison: No Change Course - Vital Signs Last Recorded V/S: Last Vital Signs Temp 98.2 F 05/30/20 08:29 Pulse 86 05/30/20 08:29 Resp 20 05/30/20 08:29 BP 180/61 H 05/30/20 08:29 Pulse Ox 91 L 05/30/20 08:29 - Orders/Labs/Meds Orders: Active Orders 24 hr Category Date Time Status EKG 12 Lead [EKG Documentation Completion] [] STAT Care 05/30/20 08:38 Active Peripheral IV Care [RC] . DIRECTED Care 05/30/20 08:39 Active CULTURE BLOOD [BC] Stat Lab 05/30/20 08:53 Received CULTURE BLOOD [BC] Stat Lab 05/30/20 09:01 Received INR,PT,PROTHROMBIN TIME [COAG] Stat Lab 05/30/20 08:53 Received PTT,PARTIAL THROMBOPLSTIN TIME [COAG] Stat Lab 05/30/20 08:53 Received UA RFX TIM AND CULT IF INDIC [URIN] Stat Lab 05/30/20 08:39 Ordered Sodium Chloride 0.9% [Saline Flush] Med 05/30/20 08:37 Active 10 ml FLUSH ASDIRECTED PRN Blood Culture x2 Reflex Set [OM.PC] Stat Oth 05/30/20 08:38 Ordered Peripheral IV Insertion Adult [OM.PC] Stat Oth 05/30/20 08:38 Ordered Medication Orders Sodium Chloride (Saline Flush) 10 ml FLUSH ASDIRECTED PRN PRN Reason: Keep Vein Open Last Admin: 05/30/20 08:41 Dose: 10 ml Documented by: MAURA Labs: Laboratory Tests 05/30/20 05/30/20 05/30/20 Range/Units 08:53 08:53 08:53 WBC 12.4 H (5.0-10.0) 10^3/uL RBC 4.77 (4.6-6.2) 10^6/uL Hgb 15.0 (14.0-18.0) g/dL Hct 45.0 (40.0-54.0) % MCV 94.3 (80-100) fL MCH 31.4 (27.0-34.0) pg MCHC 33.3 (33.0-35.0) g/dL Plt Count 160 (150-450) 10^3/uL Neut % (Auto) 79.0 H (42.2-75.2) % Lymph % (Auto) 8.7 L (20.5-50.1) % [place] % (Auto) 10.6 H (2-8) % Eos % (Auto) 1.5 (1.0-3.0) % Baso % (Auto) 0.2 (0.0-1.0) % Sodium 134 L (136-145) mmol/L Potassium 3.5 (3.5-5.1) mmol/L Chloride 99 (98-107) mmol/L Carbon Dioxide 27 (21-32) mmol/L Anion Gap 11.5 (7-13) mEq/L BUN 15 (7-18) mg/dL Creatinine 1.41 H (0.70-1.30) mg/dL Est Cr Clr Drug Dosing 49.62 mL/min Estimated GFR (MDRD) 50 BUN/Creatinine Ratio 10.6 (No establ ref range) Glucose 164 H (74-99) mg/dL Lactic Acid 2.3 H* (0.4-2.0) mmol/L Calcium 8.2 L (8.5-10.1) mg/dL Total Bilirubin 1.8 H (0.2-1.0) mg/dL AST 26 (15-37) U/L ALT 17 (16-63) U/L Alkaline Phosphatase 117 H (46-116) U/L Troponin I < 0.017 (0.000-0.056) ng/mL B-Natriuretic Peptide 59 (0-100) pg/ml Total Protein 8.4 H (6.4-8.2) g/dL Albumin 3.2 L (3.4-5.0) g/dL Globulin 5.2 Albumin/Globulin Ratio 0.62 Meds: Medications Generic Name Dose Route Start Last Admin Trade Name Freq PRN Reason Stop Dose Admin Sodium Chloride 10 ml 05/30/20 08:37 05/30/20 08:41 Saline Flush FLUSH 10 ml ASDIRECTED PRN Administration Keep Vein Open Discontinued Medications Generic Name Dose Route Start Last Admin Trade Name Freq PRN Reason Stop Dose Admin Furosemide 40 mg 05/30/20 09:40 Lasix IVPUSH 05/30/20 09:41 NOW ONE - Radiology Interpretation Free Text/Narrative:: XR Chest: increased interstitial prominence consistent with volume overload per Rad. report. Departure - Departure Time of Disposition: 09:44 (admit to Dr. Person) Disposition: Refer to Observation Condition: Fair Clinical Impression: Peripheral edema, Generalized weakness Forms: ED Department Discharge Sepsis Event Note (ED) - Focused Exam Vital Signs: Vital Signs Temp Pulse Resp BP Pulse Ox 05/30/20 08:29 98.2 F 86 20 180/61 H 91 L - My Orders Last 24 Hours: My Active Orders 05/30/20 08:37 Sodium Chloride 0.9% [Saline Flush] 10 ml FLUSH ASDIRECTED PRN 05/30/20 08:38 EKG 12 Lead [EKG Documentation Completion] [RC] STAT Blood Culture x2 Reflex Set [OM.PC] Stat Peripheral IV Insertion Adult [OM.PC] Stat 05/30/20 08:39 Peripheral IV Care [RC] . DIRECTED UA RFX TIM AND CULT IF INDIC [URIN] Stat 05/30/20 08:53 CULTURE BLOOD [BC] Stat INR,PT,PROTHROMBIN TIME [COAG] Stat PTT,PARTIAL THROMBOPLSTIN TIME [COAG] Stat 05/30/20 09:01 CULTURE BLOOD [BC] Stat - Assessment/Plan Last 24 Hours: My Active Orders 05/30/20 08:37 Sodium Chloride 0.9% [Saline Flush] 10 ml FLUSH ASDIRECTED PRN 05/30/20 08:38 EKG 12 Lead [EKG Documentation Completion] [RC] STAT Blood Culture x2 Reflex Set [OM.PC] Stat Peripheral IV Insertion Adult [OM.PC] Stat 05/30/20 08:39 Peripheral IV Care [RC] . DIRECTED UA RFX TIM AND CULT IF INDIC [URIN] Stat 05/30/20 08:53 CULTURE BLOOD [BC] Stat INR,PT,PROTHROMBIN TIME [COAG] Stat PTT,PARTIAL THROMBOPLSTIN TIME [COAG] Stat 05/30/20 09:01 CULTURE BLOOD [BC] Stat
[2020-05-30] MEDS ORDERED: Sodium Chloride 0.9% 10 ML Syringe FLUSH PRN (08:37)
--- NOTE | 2020-05-30 09:05 | CR ---
PROCEDURE INFORMATION: Exam: XR Chest, 1 View Exam date and time: 05/30/2020 8:58 AM Age: 69 years old Clinical indication: Shortness of breath; Additional info: Shortness of breath, edema, HX chf TECHNIQUE: Imaging protocol: XR of the chest Views: 1 view. COMPARISON: No relevant prior studies available. FINDINGS: Lungs: There is mild perihilar interstitial prominence consistent with volume overload or early congestive heart failure. Pleural space: Unremarkable. No pleural effusion. No pneumothorax. Heart/Mediastinum: The heart is enlarged. Bones/joints: There are sternal wires consistent with previous sternotomy incision. IMPRESSION: There is mild perihilar interstitial prominence consistent with volume overload or early congestive heart failure.
[2020-05-30 09:29] LABS: ANION GAP 11.5 mEq/L (7-13); CHLORIDE,CL 99 mmol/L (98-107); SODIUM,NA 134 mmol/L (136-145)
[2020-05-30] MEDS ORDERED: Furosemide 40 MG/4 ML VIAL IVPUSH ONE (09:40)
[2020-05-30] MEDS ORDERED: Ondansetron 4 MG/2 ML SDV IVPUSH PRN (11:43)
[2020-05-30] MEDS ORDERED: Acetaminophen 325 MG Tab PO PRN (11:43)
[2020-05-30] MEDS ORDERED: Ondansetron 4 MG Tab.DIS PO PRN (11:43)
[2020-05-30] MEDS ORDERED: cefTRIAXone 1 GM in Sodium Chloride 0.9% 50 ML IV SCH (13:00)
[2020-05-30] MEDS: Heparin Sodium 5,000 Units/ML Vial SUBCUT SCH ×2 (13:04→22:22)
--- NOTE | 2020-05-30 13:59 | PCM.HP ---
H&P History of Present Illness - General Date of Service: 05/30/20 Admit Problem/Dx: Admission Diagnosis/Problem Admission Diagnosis/Problem Peripheral edema Source of Information: Patient History Limitations: Reports: No Limitations - History of Present Illness Initial Comments - Free Text/Narative: 69-year-old with a history of coronary artery disease, dyslipidemia, hype rtension, diabetes. In the past 3 days prior to admission the patient was developing increasing bila teral lower extremity edema. This is associated with increasing pain in bilateral feet. No associated chest pain, does report mild shortness of breath. He has a nonproductive cough. No fever Has been progressively weaker unable to stand up due to pain in bilateral feet and weakness. The patient was brought in today emergency room by ambulance. He was found to have congestive heart failure and a dose of Lasix was given. He was noted to have leukocytosis, mildly elevated lactic acid. - Related Data Allergies/Adverse Reactions: Allergies Allergy/AdvReac Type Severity Reaction Status Date / Time No Known Allergies Allergy Verified 05/30/20 08:28 Home Medications: Home Meds Cholecalciferol (Vitamin D3) [Vitamin D3] 50 mcg PO DAILY 05/30/20 [History] Clopidogrel [Plavix] 75 mg PO DAILY 05/30/20 [History] Furosemide 40 mg PO DAILY 05/30/20 [History] Gabapentin [Neurontin] 400 mg PO TID 05/30/20 [History] Metoprolol Tartrate 50 mg PO BID 05/30/20 [History] Potassium Chloride 20 meq PO DAILY 05/30/20 [History] atorvaSTATin Calcium [Atorvastatin Calcium] 10 mg PO BEDTIME 05/30/20 [History] glipiZIDE [Glucotrol] 5 mg PO DAILY 05/30/20 [History] Past Medical History HEENT History: Reports: None Other HEENT History: wears reading glasses Cardiovascular History: Reports: CAD, Heart Failure, High Cholesterol, ID Respiratory History: Reports: Pneumonia, Recurrent Gastrointestinal History: Reports: None Genitourinary History: Reports: None Musculoskeletal History: Reports: None Neurological History: Reports: CVA Psychiatric History: Reports: None Endocrine/Metabolic History: Reports: Diabetes, Type II, Obesity/BMI 30+ Hematologic History: Reports: None Immunologic History: Reports: None Oncologic (Cancer) History: Reports: None Dermatologic History: Reports: None - Infectious Disease History Infectious Disease History: Reports: Influenza - Past Surgical History Head Surgeries/Procedures: Reports: None Other Cardiovascular Surgeries/Procedures: cardiac surgery October 2009, patient does not remember what kind of surgery it was GI Surgical History: Reports: Hernia, Abdominal Social & Family History - Family History Family Medical History: Noncontributory - Tobacco Use Smoking Status *Q: Current Every Day Smoker Years of Tobacco use: 50 Packs/Tins Daily: 1.5 Second Hand Smoke Exposure: No - Caffeine Use Caffeine Use: Reports: Soda - Recreational Drug Use Recreational Drug Use: No - Living Situation & Occupation Living situation: Reports: Single, Alone Occupation: Retired H&P Review of Systems - Review of Systems: Review Of Systems: See Below General: Reports: Weakness. Denies: Fever, Chills Pulmonary: Reports: Shortness of Breath Cardiovascular: Reports: Edema. Denies: Chest Pain Gastrointestinal: Denies: Abdominal Pain Genitourinary: Denies: Dysuria Psychiatric: Denies: Confusion Exam - Exam Exam: See Below - Vital Signs Vital Signs: Last Vital Signs Temp 99.1 F 05/30/20 11:43 Pulse 85 05/30/20 11:43 Resp 16 05/30/20 11:43 BP 154/61 H 05/30/20 11:43 Pulse Ox 91 L 05/30/20 13:32 Weight: 282 lb 11.2 oz - Exam General: Alert, Oriented Neck: Supple Lungs: Clear to Auscultation, Normal Respiratory Effort. No: Wheezing Cardiovascular: Regular Rate, Regular Rhythm GI/Abdominal Exam: Normal Bowel Sounds, Soft, Non-Tender Back Exam: Normal Inspection Extremities: Pedal Edema (Bilateral 1-2+ edema up to mid [place] area.) Skin: Warm, Dry Neuro Extensive - Mental Status: Alert, Oriented x3 Psychiatric: Alert, Normal Affect, Normal Mood - Patient Data Lab Results Last 24 hrs: Laboratory Results - last 24 hr 05/30/20 05/30/20 05/30/20 Range/Units 08:53 08:53 08:53 WBC 12.4 H (5.0-10.0) 10^3/uL RBC 4.77 (4.6-6.2) 10^6/uL Hgb 15.0 (14.0-18.0) g/dL Hct 45.0 (40.0-54.0) % MCV 94.3 (80-100) fL MCH 31.4 (27.0-34.0) pg MCHC 33.3 (33.0-35.0) g/dL Plt Count 160 (150-450) 10^3/uL Neut % (Auto) 79.0 H (42.2-75.2) % Lymph % (Auto) 8.7 L (20.5-50.1) % [place] % (Auto) 10.6 H (2-8) % Eos % (Auto) 1.5 (1.0-3.0) % Baso % (Auto) 0.2 (0.0-1.0) % PT 11.3 (9.0-12.0) SEC INR 1.2 (0.9-1.2) APTT 28.0 (22.0-34.0) SEC Sodium 134 L (136-145) mmol/L Potassium 3.5 (3.5-5.1) mmol/L Chloride 99 (98-107) mmol/L Carbon Dioxide 27 (21-32) mmol/L Anion Gap 11.5 (7-13) mEq/L BUN 15 (7-18) mg/dL Creatinine 1.41 H (0.70-1.30) mg/dL Est Cr Clr Drug Dosing 49.62 mL/min Estimated GFR (MDRD) 50 BUN/Creatinine Ratio 10.6 (No establ ref range) Glucose 164 H (74-99) mg/dL Lactic Acid (0.4-2.0) mmol/L Calcium 8.2 L (8.5-10.1) mg/dL Total Bilirubin 1.8 H (0.2-1.0) mg/dL AST 26 (15-37) U/L ALT 17 (16-63) U/L Alkaline Phosphatase 117 H (46-116) U/L Troponin I < 0.017 (0.000-0.056) ng/mL B-Natriuretic Peptide 59 (0-100) pg/ml Total Protein 8.4 H (6.4-8.2) g/dL Albumin 3.2 L (3.4-5.0) g/dL Globulin 5.2 Albumin/Globulin Ratio 0.62 05/30/20 05/30/20 Range/Units 08:53 13:00 WBC (5.0-10.0) 10^3/uL RBC (4.6-6.2) 10^6/uL Hgb (14.0-18.0) g/dL Hct (40.0-54.0) % MCV (80-100) fL MCH (27.0-34.0) pg MCHC (33.0-35.0) g/dL Plt Count (150-450) 10^3/uL Neut % (Auto) (42.2-75.2) % Lymph % (Auto) (20.5-50.1) % [place] % (Auto) (2-8) % Eos % (Auto) (1.0-3.0) % Baso % (Auto) (0.0-1.0) % PT (9.0-12.0) SEC INR (0.9-1.2) APTT (22.0-34.0) SEC Sodium (136-145) mmol/L Potassium (3.5-5.1) mmol/L Chloride (98-107) mmol/L Carbon Dioxide (21-32) mmol/L Anion Gap (7-13) mEq/L BUN (7-18) mg/dL Creatinine (0.70-1.30) mg/dL Est Cr Clr Drug Dosing mL/min Estimated GFR (MDRD) BUN/Creatinine Ratio (No establ ref range) Glucose (74-99) mg/dL Lactic Acid 2.3 H* 1.4 (0.4-2.0) mmol/L Calcium (8.5-10.1) mg/dL Total Bilirubin (0.2-1.0) mg/dL AST (15-37) U/L ALT (16-63) U/L Alkaline Phosphatase (46-116) U/L Troponin I (0.000-0.056) ng/mL B-Natriuretic Peptide (0-100) pg/ml Total Protein (6.4-8.2) g/dL Albumin (3.4-5.0) g/dL Globulin Albumin/Globulin Ratio Result Diagrams: 05/30/20 08:53 05/30/20 08:53 - Problem List (1) Acute congestive heart failure SNOMED Code(s): 37336079 ICD Code: I50.9 - HEART FAILURE, UNSPECIFIED Status: Acute Current Visit: Yes (2) Diabetes SNOMED Code(s): 40322584 ICD Code: E11.9 - TYPE 2 DIABETES MELLITUS WITHOUT COMPLICATIONS Status: Acute Current Visit: Yes (3) Coronary artery disease SNOMED Code(s): 74638850 ICD Code: I25.10 - ATHSCL HEART DISEASE OF [place] CORONARY ARTERY W/O ANG PCTRS Status: Acute Current Visit: Yes (4) Generalized weakness SNOMED Code(s): 77801762 ICD Code: R53.1 - WEAKNESS Status: Acute Current Visit: No (5) Peripheral edema SNOMED Code(s): 904967234 ICD Code: R60.9 - EDEMA, UNSPECIFIED Status: Acute Current Visit: No Problem List Initiated/Reviewed/Updated: Yes Orders Last 24hrs: Active Orders 24 hr Category Date Time Status Admission Diagnosis [ADT] Routine ADT 05/30/20 09:47 Ordered Patient Status [ADT] Routine ADT 05/30/20 09:47 Active Antiembolic Devices [RC] PER UNIT ROUTINE Care 05/30/20 11:45 Active Oxygen Therapy [RC] PRN Care 05/30/20 11:43 Active Peripheral IV Care [RC] . DIRECTED Care 05/30/20 08:39 Active Up With Assistance [RC] ASDIRECTED Care 05/30/20 11:43 Active VTE/DVT Education [RC] PER UNIT ROUTINE Care 05/30/20 11:43 Active Vital Signs [RC] Q4H Care 05/30/20 11:43 Active Regular Diet [DIET] Diet 05/30/20 Lunch Active BASIC METABOLIC PANEL,BMP [CHEM] AM Lab 05/31/20 05:15 Ordered CBC WITH AUTO DIFF [HEME] AM Lab 05/31/20 05:15 Ordered CORONAVIRUS COVID-19 RAPID [MOLEC] Routine Lab 05/30/20 13:30 Ordered CULTURE BLOOD [BC] Stat Lab 05/30/20 08:53 Received CULTURE BLOOD [BC] Stat Lab 05/30/20 09:01 Received CULTURE SPUTUM + SMEAR [RM] Routine Lab 05/30/20 11:17 Ordered CULTURE URINE [RM] Routine Lab 05/30/20 12:16 Ordered UA W/MICROSCOPIC [URIN] Routine Lab 05/30/20 12:16 Ordered Acetaminophen [Tylenol] Med 05/30/20 11:43 Active 650 mg PO Q4H PRN Cholecalciferol (Vitamin D3) [Vitamin D3] Med 05/31/20 09:00 Ordered 50 mcg PO DAILY Clopidogrel [Plavix] Med 05/31/20 09:00 Ordered 75 mg PO DAILY Furosemide [Lasix] Med 05/30/20 14:00 Active 40 mg IVPUSH BIDDIURETIC Gabapentin Med 05/30/20 14:00 Ordered 400 mg PO TID Heparin Sodium Med 05/30/20 14:00 Active 5,000 units SUBCUT Q8HR Metoprolol Tartrate Med 05/30/20 21:00 Ordered 50 mg PO BID Ondansetron [Zofran ODT] Med 05/30/20 11:43 Active 4 mg PO Q6H PRN Ondansetron [Zofran] Med 05/30/20 11:43 Active 4 mg IVPUSH Q6H PRN Potassium Chloride [Klor-Con 10] Med 05/31/20 09:00 Ordered 20 meq PO DAILY Sodium Chloride 0.9% [Saline Flush] Med 05/30/20 11:43 Active 10 ml FLUSH ASDIRECTED PRN Temazepam [Restoril] Med 05/30/20 11:43 Active 15 mg PO BEDTIME PRN atorvaSTATin [Lipitor] Med 05/30/20 21:00 Ordered 10 mg PO BEDTIME cefTRIAXone [Rocephin] 1 gm Med 05/30/20 13:00 Active Sodium Chloride 0.9% [Normal Saline] 50 ml IV Q24H glipiZIDE [Glucotrol] Med 05/31/20 09:00 Ordered 5 mg PO DAILY oxyCODONE Med 05/30/20 11:43 Active 5 mg PO Q4H PRN Antiembolic Hose [OM.PC] Per Unit Routine Oth 05/30/20 11:43 Ordered Blood Culture x2 Reflex Set [OM.PC] Stat Oth 05/30/20 08:38 Ordered Peripheral IV Insertion Adult [OM.PC] Stat Oth 05/30/20 08:38 Ordered Saline Lock Insert [OM.PC] Routine Oth 05/30/20 11:43 Ordered Resuscitation Status Routine Resus Stat 05/30/20 11:43 Ordered Medication Orders Acetaminophen (Tylenol) 650 mg PO Q4H PRN PRN Reason: Pain (Mild 1-3)/fever Atorvastatin Calcium (Lipitor) 10 mg PO BEDTIME AMOL Cholecalciferol (Vitamin D3) 50 mcg PO DAILY AMOL Clopidogrel Bisulfate (Plavix) 75 mg PO DAILY [facility] Furosemide (Lasix) 40 mg IVPUSH BIDDIURETIC AMOL Glipizide (Glucotrol) 5 mg PO DAILY [facility] Heparin Sodium (Porcine) (Heparin Sodium) 5,000 units SUBCUT Q8HR [facility] Last Admin: 05/30/20 13:04 Dose: 5,000 units Documented by: RODNEY Ceftriaxone Sodium 1 gm/ (Sodium Chloride) 50 mls @ 100 mls/hr IV Q24H [facility] Last Infusion: 05/30/20 13:53 Dose: 1,345 mls/hr Documented by: Admin: 05/30/20 13:04 Dose: 100 mls/hr Documented by: RODNEY Non-Formulary Medication (Gabapentin) 400 mg PO TID [facility] Non-Formulary Medication (Metoprolol Tartrate) 50 mg PO BID [facility] Ondansetron HCl (Zofran Odt) 4 mg PO Q6H PRN PRN Reason: nausea, able to take PO Ondansetron HCl (Zofran) 4 mg IVPUSH Q6H PRN PRN Reason: Nausea/Vomiting Oxycodone HCl (Oxycodone) 5 mg PO Q4H PRN PRN Reason: Pain (moderate 4-6) Potassium Chloride (Klor-Con 10) 20 meq PO DAILY [facility] Sodium Chloride (Saline Flush) 10 ml FLUSH ASDIRECTED PRN PRN Reason: Keep Vein Open Temazepam (Restoril) 15 mg PO BEDTIME PRN PRN Reason: Sleep Assessment/Plan Comment:: 69-year-old with a history of coronary artery disease, dyslipidemia, hypertension, diabetes. In the past 3 days prior to admission the patient was developing increasing bilateral lower extremity edema. This is associated with increasing pain in bilateral feet. No associated chest pain, does report mild shortness of breath. He has a nonproductive cough. No fever Has been progressively weaker unable to stand up due to pain in bilateral feet and weakness. The patient was brought in today emergency room by ambulance. He was found to have congestive heart failure and a dose of Lasix was given. He was noted to have leukocytosis, mildly elevated lactic acid. Leukocytosis, elevated lactic acid Cough We will obtain call with test Obtain sputum culture Obtain blood culture Obtain urinalysis and culture No definite ammonia on chest x-ray but it might be difficult to differentiate from CHF Possible bronchitis Start empirical ceftriaxone Recheck lactic acid Follow for fever Recheck CBC in the morning Acute congestive heart failure We will obtain echocardiogram for further characterization Continue metoprolol, Well switch Lasix to IV, Increased dosing Coronary artery disease Continue aspirin, Plavix, metoprolol, statin Uncontrolled hypertension For now continue diuretics at an increased dose Continue metoprolol Monitor and adjust as needed Diabetes Continue glipizide Check blood sugars before meals and evening and use supplemental insulin as needed Chronic pain Continue Neurontin DVT prophylaxis with subcutaneous heparin
[2020-05-30] MEDS: Furosemide 40 MG/4 ML VIAL IVPUSH SCH (15:15)
[2020-05-30] MEDS: GABAPENTIN 400 MG PO SCH ×2 (15:25→22:19)
[2020-05-30] MEDS: Nystatin Crm 15 GM Tube TOP SCH ×2 (17:45→22:23)
[2020-05-30] MEDS: Insulin Lispro 100 Units/ML 3 ML Vial SUBCUT SCH ×2 (18:05→22:21)
[2020-05-30] MEDS: ATORVASTATIN 20 MG PO SCH (22:29)
[2020-05-30] MEDS: METOPROLOL TARTRATE 100 MG PO SCH (22:31)
[2020-05-30] MEDS: oxyCODONE 5 MG Tab PO PRN (23:21)
[2020-05-30] MEDS: Temazepam 15 MG Cap PO PRN (23:21)
[2020-05-31] MEDS: Heparin Sodium 5,000 Units/ML Vial SUBCUT SCH ×3 (05:52→22:20)
[2020-05-31 07:05] LABS: ANION GAP 13.7 mEq/L (7-13)
[2020-05-31] MEDS: GABAPENTIN 400 MG PO SCH ×3 (08:33→22:14)
[2020-05-31] MEDS: CHOLECALCIFEROL 25 MCG PO SCH (08:33)
[2020-05-31] MEDS: CLOPIDOGREL 75 MG PO SCH (08:33)
[2020-05-31] MEDS: Aspirin 81 MG Tab.Chew PO SCH (08:33)
[2020-05-31] MEDS: POTASSIUM CHLOR 10 MEQ PO SCH (08:34)
[2020-05-31] MEDS: GLIPIZIDE 5 MG PO SCH (08:34)
[2020-05-31] MEDS: Nystatin Crm 15 GM Tube TOP SCH ×2 (08:35→22:19)
[2020-05-31] MEDS: METOPROLOL TARTRATE 100 MG PO SCH ×2 (08:35→22:18)
[2020-05-31] MEDS: Insulin Lispro 100 Units/ML 3 ML Vial SUBCUT SCH ×4 (08:36→22:17)
[2020-05-31] MEDS: Sodium Chloride 0.9% 10 ML Syringe FLUSH PRN ×7 (08:37→23:43)
[2020-05-31] MEDS: Furosemide 40 MG/4 ML VIAL IVPUSH SCH ×2 (08:37→14:56)
--- NOTE | 2020-05-31 10:26 | PCM.PN ---
- General Info Date of Service: 05/31/20 Admission Dx/Problem (Free Text): Admission Diagnosis/Problem Admission Diagnosis/Problem Peripheral edema Subjective Update: Today patient reports that he feels pain in his right ankle. States that he had pain in the left ankle for a few days but has now been worse in the right ankle. Reports that he [facility] about 8 months. Denies fevers, cough, chest pain, nausea, vomiting, diarrhea, constipation, dysuria, hematuria, or any new symptoms. - Patient Data Vitals - Most Recent: Last Vital Signs Temp 98.9 F 05/31/20 07:57 Pulse 88 05/31/20 07:57 Resp 20 05/31/20 07:57 BP 138/96 H 05/31/20 07:57 Pulse Ox 93 L 05/31/20 07:57 Weight - Most Recent: 282 lb 4.8 oz I&O - Last 24 Hours: Intake & Output 05/30/20 05/31/20 05/31/20 22:59 06:59 14:59 Intake Total 200 570 Output Total 700 450 Balance -500 120 Lab Results Last 24 Hours: Laboratory Results - last 24 hr 05/30/20 05/30/20 05/30/20 Range/Units 13:00 13:20 13:45 WBC (5.0-10.0) 10^3/uL RBC (4.6-6.2) 10^6/uL Hgb (14.0-18.0) g/dL Hct (40.0-54.0) % MCV (80-100) fL MCH (27.0-34.0) pg MCHC (33.0-35.0) g/dL Plt Count (150-450) 10^3/uL Neut % (Auto) (42.2-75.2) % Lymph % (Auto) (20.5-50.1) % [place] % (Auto) (2-8) % Eos % (Auto) (1.0-3.0) % Baso % (Auto) (0.0-1.0) % Sodium (136-145) mmol/L Potassium (3.5-5.1) mmol/L Chloride (98-107) mmol/L Carbon Dioxide (21-32) mmol/L Anion Gap (7-13) mEq/L BUN (7-18) mg/dL Creatinine (0.70-1.30) mg/dL Est Cr Clr Drug Dosing mL/min Estimated GFR (MDRD) Glucose (74-99) mg/dL POC Glucose (83-110) mg/dl Lactic Acid 1.4 (0.4-2.0) mmol/L Calcium (8.5-10.1) mg/dL Urine Color Dark yellow (YELLOW) Urine Appearance Slightly cloudy (CLEAR) Urine pH 5.5 (5.0-9.0) Ur Specific [place] 1.020 (1.005-1.030) Urine Protein Negative (NEGATIVE) Urine Glucose (UA) Negative (NEGATIVE) Urine Ketones Negative (NEGATIVE) Urine Occult Blood Trace-intact H (NEGATIVE) Urine Nitrite Negative (NEGATIVE) Urine Bilirubin Negative (NEGATIVE) Urine Urobilinogen 0.2 (0.2-1.0) mg/dL Ur Leukocyte Esterase Negative (NEGATIVE) Urine RBC 5-10 H /HPF Urine WBC 0-5 (0-5/HPF) /HPF Ur Epithelial Cells Rare (NOT SEEN) /HPF Urine Bacteria Rare (0-FEW/HPF) /HPF Urine Mucus Few H (NOT SEEN) /LPF COVID-19 (GERTRUDE) Negative (NEGATIVE) 05/30/20 05/30/20 05/31/20 Range/Units 17:06 21:08 06:15 WBC 16.5 H (5.0-10.0) 10^3/uL RBC 4.65 (4.6-6.2) 10^6/uL Hgb 14.6 (14.0-18.0) g/dL Hct 43.9 (40.0-54.0) % MCV 94.4 (80-100) fL MCH 31.4 (27.0-34.0) pg MCHC 33.3 (33.0-35.0) g/dL Plt Count 178 (150-450) 10^3/uL Neut % (Auto) 77.3 H (42.2-75.2) % Lymph % (Auto) 10.0 L (20.5-50.1) % [place] % (Auto) 11.5 H (2-8) % Eos % (Auto) 1.0 (1.0-3.0) % Baso % (Auto) 0.2 (0.0-1.0) % Sodium (136-145) mmol/L Potassium (3.5-5.1) mmol/L Chloride (98-107) mmol/L Carbon Dioxide (21-32) mmol/L Anion Gap (7-13) mEq/L BUN (7-18) mg/dL Creatinine (0.70-1.30) mg/dL Est Cr Clr Drug Dosing mL/min Estimated GFR (MDRD) Glucose (74-99) mg/dL POC Glucose 133 H 165 H (83-110) mg/dl Lactic Acid (0.4-2.0) mmol/L Calcium (8.5-10.1) mg/dL Urine Color (YELLOW) Urine Appearance (CLEAR) Urine pH (5.0-9.0) Ur Specific [place] (1.005-1.030) Urine Protein (NEGATIVE) Urine Glucose (UA) (NEGATIVE) Urine Ketones (NEGATIVE) Urine Occult Blood (NEGATIVE) Urine Nitrite (NEGATIVE) Urine Bilirubin (NEGATIVE) Urine Urobilinogen (0.2-1.0) mg/dL Ur Leukocyte Esterase (NEGATIVE) Urine RBC /HPF Urine WBC (0-5/HPF) /HPF Ur Epithelial Cells (NOT SEEN) /HPF Urine Bacteria (0-FEW/HPF) /HPF Urine Mucus (NOT SEEN) /LPF COVID-19 (GERTRUDE) (NEGATIVE) 05/31/20 05/31/20 Range/Units 06:15 07:43 WBC (5.0-10.0) 10^3/uL RBC (4.6-6.2) 10^6/uL Hgb (14.0-18.0) g/dL Hct (40.0-54.0) % MCV (80-100) fL MCH (27.0-34.0) pg MCHC (33.0-35.0) g/dL Plt Count (150-450) 10^3/uL Neut % (Auto) (42.2-75.2) % Lymph % (Auto) (20.5-50.1) % [place] % (Auto) (2-8) % Eos % (Auto) (1.0-3.0) % Baso % (Auto) (0.0-1.0) % Sodium 132 L (136-145) mmol/L Potassium 3.7 (3.5-5.1) mmol/L Chloride 96 L (98-107) mmol/L Carbon Dioxide 26 (21-32) mmol/L Anion Gap 13.7 H (7-13) mEq/L BUN 19 H (7-18) mg/dL Creatinine 1.47 H (0.70-1.30) mg/dL Est Cr Clr Drug Dosing 46.90 mL/min Estimated GFR (MDRD) 47 Glucose 169 H (74-99) mg/dL POC Glucose 161 H (83-110) mg/dl Lactic Acid (0.4-2.0) mmol/L Calcium 8.3 L (8.5-10.1) mg/dL Urine Color (YELLOW) Urine Appearance (CLEAR) Urine pH (5.0-9.0) Ur Specific [place] (1.005-1.030) Urine Protein (NEGATIVE) Urine Glucose (UA) (NEGATIVE) Urine Ketones (NEGATIVE) Urine Occult Blood (NEGATIVE) Urine Nitrite (NEGATIVE) Urine Bilirubin (NEGATIVE) Urine Urobilinogen (0.2-1.0) mg/dL Ur Leukocyte Esterase (NEGATIVE) Urine RBC /HPF Urine WBC (0-5/HPF) /HPF Ur Epithelial Cells (NOT SEEN) /HPF Urine Bacteria (0-FEW/HPF) /HPF Urine Mucus (NOT SEEN) /LPF COVID-19 (GERTRUDE) (NEGATIVE) Tariq Results Last 24 Hours: Microbiology 05/30/20 09:01 Aerobic Blood Culture - Preliminary Blood - Venous - Lab Draw NO GROWTH AFTER 1 DAY Anaerobic Blood Culture - Preliminary NO GROWTH AFTER 1 DAY 05/30/20 08:53 Aerobic Blood Culture - Preliminary Blood - Venous NO GROWTH AFTER 1 DAY Anaerobic Blood Culture - Preliminary NO GROWTH AFTER 1 DAY 05/30/20 13:20 Urine Culture - Preliminary Urine, Clean Catch NO GROWTH AFTER 1 DAY 05/30/20 15:20 Gram Stain - Final Sputum - Expectorated Med Orders - Current: Current Medications Acetaminophen (Tylenol) 650 mg PO Q4H PRN PRN Reason: Pain (Mild 1-3)/fever Aspirin (Aspirin) 81 mg PO WITHBREAKFAST [facility] Last Admin: 05/31/20 08:33 Dose: 81 mg Documented by: Atorvastatin Calcium (Lipitor) 10 mg PO BEDTIME [facility] Last Admin: 05/30/20 22:29 Dose: 10 mg Documented by: Cholecalciferol (Vitamin D3) 50 mcg PO DAILY [facility] Last Admin: 05/31/20 08:33 Dose: 50 mcg Documented by: Clopidogrel Bisulfate (Plavix) 75 mg PO DAILY [facility] Last Admin: 05/31/20 08:33 Dose: 75 mg Documented by: Furosemide (Lasix) 40 mg IVPUSH BIDDIURETIC [facility] Last Admin: 05/31/20 08:37 Dose: 40 mg Documented by: Glipizide (Glucotrol) 5 mg PO DAILY [facility] Last Admin: 05/31/20 08:34 Dose: 5 mg Documented by: Heparin Sodium (Porcine) (Heparin Sodium) 5,000 units SUBCUT Q8HR [facility] Last Admin: 05/31/20 05:52 Dose: 5,000 units Documented by: Ceftriaxone Sodium 2 gm/ (Sodium Chloride) 100 mls @ 200 mls/hr IV Q24H [facility] Insulin Human Lispro (Humalog) 0 unit SUBCUT WITHMEALSANDBED [facility]; Protocol Last Admin: 05/31/20 08:36 Dose: 1 unit Documented by: Gabapentin 400 Mg (Tab *Own Med*) 400 mg PO TID [facility] Last Admin: 05/31/20 08:33 Dose: 400 mg Documented by: Metoprolol Tartrate (100 Mg Tab *Own Med*) 50 mg PO BID [facility] Last Admin: 05/31/20 08:35 Dose: 50 mg Documented by: Nystatin (Nystatin Crm) 1 gm TOP BID [facility] Last Admin: 05/31/20 08:35 Dose: 1 applic Documented by: Ondansetron HCl (Zofran Odt) 4 mg PO Q6H PRN PRN Reason: nausea, able to take PO Ondansetron HCl (Zofran) 4 mg IVPUSH Q6H PRN PRN Reason: Nausea/Vomiting Oxycodone HCl (Oxycodone) 5 mg PO Q4H PRN PRN Reason: Pain (moderate 4-6) Last Admin: 05/30/20 23:21 Dose: 5 mg Documented by: Potassium Chloride (Klor-Con 10) 20 meq PO DAILY [facility] Last Admin: 05/31/20 08:34 Dose: 20 meq Documented by: Sodium Chloride (Saline Flush) 10 ml FLUSH ASDIRECTED PRN PRN Reason: Keep Vein Open Last Admin: 05/31/20 08:37 Dose: 10 ml Documented by: Temazepam (Restoril) 15 mg PO BEDTIME PRN PRN Reason: Sleep Last Admin: 05/30/20 23:21 Dose: 15 mg Documented by: Vancomycin HCl (Pharmacy To Dose - Vancomycin) 0 dose .XX ASDIRECTED AMOL Discontinued Medications Furosemide (Lasix) 40 mg IVPUSH NOW ONE Stop: 05/30/20 09:41 Last Admin: 05/30/20 09:46 Dose: 40 mg Documented by: Ceftriaxone Sodium 1 gm/ (Sodium Chloride) 50 mls @ 100 mls/hr IV Q24H [facility] Last Infusion: 05/30/20 13:53 Dose: Infused Documented by: Sodium Chloride (Saline Flush) 10 ml FLUSH ASDIRECTED PRN PRN Reason: Keep Vein Open Last Admin: 05/30/20 08:41 Dose: 10 ml Documented by: - Exam Quality Assessment: Supplemental Oxygen General: Alert, Oriented, Cooperative HEENT: Pupils Equal, Pupils Reactive, Mucous Membr. Moist/[place] Neck: Supple, Trachea Midline Lungs: Crackles Cardiovascular: Regular Rate, Regular Rhythm GI/Abdominal Exam: Normal Bowel Sounds, Soft, Non-Tender Extremities: Other (Chronic venous stasis changes of bilateral lower extremities. Onychomycosis. Bilateral ankle tenderness to palpation. Worse on the right.) Skin: Warm, Dry Neurological: No New Focal Deficit Psy/Mental Status: Alert, Normal Affect, Normal Mood Sepsis Event Note - Evaluation Sepsis Screening Result: No Definite Risk - Focused Exam Vital Signs: Vital Signs Temp Pulse Resp BP Pulse Ox 05/31/20 07:57 98.9 F 88 20 138/96 H 93 L 05/31/20 00:54 98.2 F 70 20 129/46 L 90 L 05/31/20 00:40 71 L Date Exam was Performed: 05/31/20 Time Exam was Performed: 10:22 - Problem List & Annotations (1) Bilateral ankle pain SNOMED Code(s): 191651490 Code(s): M25.571 - PAIN IN RIGHT ANKLE AND JOINTS OF RIGHT FOOT; M25.572 - PAIN IN LEFT ANKLE AND JOINTS OF LEFT FOOT Status: Acute Current Visit: Yes (2) Acute congestive heart failure SNOMED Code(s): 90419914 Code(s): I50.9 - HEART FAILURE, UNSPECIFIED Status: Acute Current Visit: Yes (3) Coronary artery disease SNOMED Code(s): 73831680 Code(s): I25.10 - ATHSCL HEART DISEASE OF [place] CORONARY ARTERY W/O ANG PCTRS Status: Acute Current Visit: Yes (4) Diabetes SNOMED Code(s): 15039006 Code(s): E11.9 - TYPE 2 DIABETES MELLITUS WITHOUT COMPLICATIONS Status: Acute Current Visit: Yes (5) Generalized weakness SNOMED Code(s): 77717775 Code(s): R53.1 - WEAKNESS Status: Acute Current Visit: No (6) Peripheral edema SNOMED Code(s): 201858408 Code(s): R60.9 - EDEMA, UNSPECIFIED Status: Acute Current Visit: No - Problem List Review Problem List Initiated/Reviewed/Updated: Yes - My Orders Last 24 Hours: My Active Orders 05/31/20 10:12 Ankle 2V Bi [CR] Routine C-REACTIVE PROTEIN [CHEM] Routine SEDIMENTATION RATE MANUAL [HEME] Routine 05/31/20 10:13 CULTURE BLOOD [BC] Stat CULTURE BLOOD [BC] Stat Blood Culture x2 Reflex Set [OM.PC] Stat 05/31/20 10:15 Pharmacy to Dose - Vancomycin See Dose Instructions .XX ASDIRECTED cefTRIAXone [Rocephin] 2 gm Sodium Chloride 0.9% [Normal Saline] 100 ml IV Q24H - Plan Plan:: Patient is a 70-year-old male with medical history significant for CAD, dyslipidemia, hypertension, diabetes, and morbid obesity who is admitted for acute CHF and sepsis. #Acute congestive heart failure Continue Lasix Daily standing weight Strict I's and O's Continue metoprolol Follow-up on echocardiogram #Possible osteomyelitis versus septic arthritis: Patient with bilateral ankle pain, worse in the right ankle today. Check ESR and CRP Obtain blood cultures Increase Rocephin dose to 2 mg daily Start vancomycin Obtain bilateral ankle x-ray #CAD: Continue aspirin, Plavix, metoprolol, and statin #Hypertension: Blood pressure seems to be improved Continue current medications #Type 2 diabetes Sliding scale insulin hypoglycemia protocol Cautious use of glipizide if patient is not eating #Chronic pain Continue Neurontin #DVT prophylaxis: Heparin
[2020-05-31] MEDS: cefTRIAXone 2 GM in Sodium Chloride 0.9% 100 ML IV SCH (10:58)
--- NOTE | 2020-05-31 11:56 | CR ---
EXAMINATION: Ankle 2V Bi SEX: Male AGE: 70 years CLINICAL HISTORY: 70-year-old male experiencing bilateral ankle PAIN. INTERPRETATION: Abnormal. 1. Bimalleolar soft tissue swelling (STS). 2. Evidence of old trauma (inner osseous ligament damage and calcification distal tibia/fib, right ankle. 3. Tiny vascular clips (x2) soft tissues medial aspect distal left tibia (isolated tiny foreign body posteriorly). 4. Large heel SPURS at the insertion of plantar aponeurosis and Achilles tendon on the os calcis bilaterally. 5. Bilateral ankle joint effusions. *No sign of acute fracture or dislocation either ankle. Large os subtibiale. 6. Symmetrically spaced tibiotalar joints without appreciable arthritic degenerative change.
[2020-05-31] MEDS: ATORVASTATIN 20 MG PO SCH (22:17)
[2020-05-31] MEDS: Temazepam 15 MG Cap PO PRN (22:21)
[2020-06-01] MEDS: Sodium Chloride 0.9% 10 ML Syringe FLUSH PRN ×6 (01:19→23:40)
[2020-06-01] MEDS: Heparin Sodium 5,000 Units/ML Vial SUBCUT SCH ×3 (06:41→21:15)
[2020-06-01 07:11] LABS: ANION GAP 10.7 mEq/L (7-13)
[2020-06-01] MEDS: Insulin Lispro 100 Units/ML 3 ML Vial SUBCUT SCH ×4 (08:18→21:14)
[2020-06-01] MEDS: CHOLECALCIFEROL 25 MCG PO SCH (08:53)
[2020-06-01] MEDS: Aspirin 81 MG Tab.Chew PO SCH (08:53)
[2020-06-01] MEDS: POTASSIUM CHLOR 10 MEQ PO SCH (08:54)
[2020-06-01] MEDS: GLIPIZIDE 5 MG PO SCH (08:54)
[2020-06-01] MEDS: METOPROLOL TARTRATE 100 MG PO SCH (08:54)
[2020-06-01] MEDS: CLOPIDOGREL 75 MG PO SCH (08:54)
[2020-06-01] MEDS: Nystatin Crm 15 GM Tube TOP SCH ×2 (08:55→21:14)
[2020-06-01] MEDS: Furosemide 40 MG/4 ML VIAL IVPUSH SCH ×2 (08:56→14:51)
[2020-06-01] MEDS: GABAPENTIN 400 MG PO SCH (09:05)
[2020-06-01] MEDS: cefTRIAXone 2 GM in Sodium Chloride 0.9% 100 ML IV SCH (10:59)
--- NOTE | 2020-06-01 10:59 | PCM.PN ---
- General Info Date of Service: 06/01/20 Admission Dx/Problem (Free Text): Admission Diagnosis/Problem Admission Diagnosis/Problem Peripheral edema Subjective Update: Today patient reports that he feels pain in his left ankle. States that he had pain in the left ankle for about 7 days. Still very painful today. Denies fevers, cough, chest pain, nausea, vomiting, diarrhea, constipation, dysuria, hematuria, or any new symptoms. - Patient Data Vitals - Most Recent: Last Vital Signs Temp 98.1 F 06/01/20 08:20 Pulse 72 06/01/20 08:20 Resp 20 06/01/20 08:20 BP 156/56 H 06/01/20 08:20 Pulse Ox 96 06/01/20 08:20 Weight - Most Recent: 284 lb 9.6 oz I&O - Last 24 Hours: Intake & Output 05/31/20 06/01/20 06/01/20 22:59 06:59 14:59 Intake Total 680 287 420 Output Total 1050 650 Balance -370 287 -230 Lab Results Last 24 Hours: Laboratory Results - last 24 hr 05/31/20 05/31/20 05/31/20 Range/Units 10:38 10:38 11:37 WBC (5.0-10.0) 10^3/uL RBC (4.6-6.2) 10^6/uL Hgb (14.0-18.0) g/dL Hct (40.0-54.0) % MCV (80-100) fL MCH (27.0-34.0) pg MCHC (33.0-35.0) g/dL Plt Count (150-450) 10^3/uL ESR 46 H (0-15) mm/hr Sodium (136-145) mmol/L Potassium (3.5-5.1) mmol/L Chloride (98-107) mmol/L Carbon Dioxide (21-32) mmol/L Anion Gap (7-13) mEq/L BUN (7-18) mg/dL Creatinine (0.70-1.30) mg/dL Est Cr Clr Drug Dosing mL/min Estimated GFR (MDRD) Glucose (74-99) mg/dL POC Glucose 65 L (83-110) mg/dl Calcium (8.5-10.1) mg/dL Phosphorus (2.6-4.7) mg/dL Magnesium (1.8-2.4) mg/dL C-Reactive Protein 18.7 H (0.0-0.9) mg/dL 05/31/20 05/31/20 06/01/20 Range/Units 16:54 22:16 06:13 WBC 11.4 H (5.0-10.0) 10^3/uL RBC 4.58 L (4.6-6.2) 10^6/uL Hgb 14.3 (14.0-18.0) g/dL Hct 43.7 (40.0-54.0) % MCV 95.4 (80-100) fL MCH 31.2 (27.0-34.0) pg MCHC 32.7 L (33.0-35.0) g/dL Plt Count 161 (150-450) 10^3/uL ESR (0-15) mm/hr Sodium (136-145) mmol/L Potassium (3.5-5.1) mmol/L Chloride (98-107) mmol/L Carbon Dioxide (21-32) mmol/L Anion Gap (7-13) mEq/L BUN (7-18) mg/dL Creatinine (0.70-1.30) mg/dL Est Cr Clr Drug Dosing mL/min Estimated GFR (MDRD) Glucose (74-99) mg/dL POC Glucose 101 117 H (83-110) mg/dl Calcium (8.5-10.1) mg/dL Phosphorus (2.6-4.7) mg/dL Magnesium (1.8-2.4) mg/dL C-Reactive Protein (0.0-0.9) mg/dL 06/01/20 06/01/20 Range/Units 06:13 07:52 WBC (5.0-10.0) 10^3/uL RBC (4.6-6.2) 10^6/uL Hgb (14.0-18.0) g/dL Hct (40.0-54.0) % MCV (80-100) fL MCH (27.0-34.0) pg MCHC (33.0-35.0) g/dL Plt Count (150-450) 10^3/uL ESR (0-15) mm/hr Sodium 135 L (136-145) mmol/L Potassium 3.7 (3.5-5.1) mmol/L Chloride 99 (98-107) mmol/L Carbon Dioxide 29 (21-32) mmol/L Anion Gap 10.7 (7-13) mEq/L BUN 20 H (7-18) mg/dL Creatinine 1.32 H (0.70-1.30) mg/dL Est Cr Clr Drug Dosing 52.23 mL/min Estimated GFR (MDRD) 53 Glucose 144 H (74-99) mg/dL POC Glucose 130 H (83-110) mg/dl Calcium 8.4 L (8.5-10.1) mg/dL Phosphorus 4.1 (2.6-4.7) mg/dL Magnesium 2.2 (1.8-2.4) mg/dL C-Reactive Protein (0.0-0.9) mg/dL Tariq Results Last 24 Hours: Microbiology 05/30/20 09:01 Aerobic Blood Culture - Preliminary Blood - Venous - Lab Draw NO GROWTH AFTER 2 DAYS Anaerobic Blood Culture - Preliminary NO GROWTH AFTER 2 DAYS 05/30/20 08:53 Aerobic Blood Culture - Preliminary Blood - Venous NO GROWTH AFTER 2 DAYS Anaerobic Blood Culture - Preliminary NO GROWTH AFTER 2 DAYS 05/30/20 13:20 Urine Culture - Preliminary Urine, Clean Catch NO GROWTH AFTER 1 DAY Med Orders - Current: Current Medications Acetaminophen (Tylenol) 650 mg PO Q4H PRN PRN Reason: Pain (Mild 1-3)/fever Aspirin (Aspirin) 81 mg PO WITHBREAKFAST [facility] Last Admin: 06/01/20 08:53 Dose: 81 mg Documented by: Atorvastatin Calcium (Lipitor) 10 mg PO BEDTIME [facility] Cholecalciferol (Vitamin D3) 50 mcg PO DAILY [facility] Clopidogrel Bisulfate (Plavix) 75 mg PO DAILY [facility] Furosemide (Lasix) 40 mg IVPUSH BIDDIURETIC [facility] Last Admin: 06/01/20 08:56 Dose: 40 mg Documented by: Gabapentin (Neurontin) 400 mg PO TID [facility] Glipizide (Glucotrol) 5 mg PO DAILY [facility] Heparin Sodium (Porcine) (Heparin Sodium) 5,000 units SUBCUT Q8HR [facility] Last Admin: 06/01/20 06:41 Dose: 5,000 units Documented by: Ceftriaxone Sodium 2 gm/ (Sodium Chloride) 100 mls @ 200 mls/hr IV Q24H [facility] Last Infusion: 05/31/20 11:37 Dose: Infused Documented by: Vancomycin HCl 1.5 gm/ Premix 300 mls @ 200 mls/hr IV Q12H [facility] Last Infusion: 06/01/20 01:18 Dose: Infused Documented by: Insulin Human Lispro (Humalog) 0 unit SUBCUT WITHMEALSANDBED [facility]; Protocol Last Admin: 06/01/20 08:18 Dose: Not Given Documented by: Metoprolol Tartrate (Lopressor) 500 mg PO BID [facility] Nystatin (Nystatin Crm) 1 gm TOP BID [facility] Last Admin: 06/01/20 08:55 Dose: 1 applic Documented by: Ondansetron HCl (Zofran Odt) 4 mg PO Q6H PRN PRN Reason: nausea, able to take PO Ondansetron HCl (Zofran) 4 mg IVPUSH Q6H PRN PRN Reason: Nausea/Vomiting Oxycodone HCl (Oxycodone) 5 mg PO Q4H PRN PRN Reason: Pain (moderate 4-6) Last Admin: 05/30/20 23:21 Dose: 5 mg Documented by: Potassium Chloride (Klor-Con 10) 20 meq PO DAILY [facility] Sodium Chloride (Saline Flush) 10 ml FLUSH ASDIRECTED PRN PRN Reason: Keep Vein Open Last Admin: 06/01/20 08:56 Dose: 10 ml Documented by: Temazepam (Restoril) 15 mg PO BEDTIME PRN PRN Reason: Sleep Last Admin: 05/31/20 22:21 Dose: 15 mg Documented by: Vancomycin HCl (Pharmacy To Dose - Vancomycin) 0 dose .XX ASDIRECTED [facility] Discontinued Medications Atorvastatin Calcium (Lipitor) 10 mg PO BEDTIME [facility] Last Admin: 05/31/20 22:17 Dose: 10 mg Documented by: Atorvastatin Calcium (Lipitor) 10 mg PO BEDTIME [facility] Cholecalciferol (Vitamin D3) 50 mcg PO DAILY [facility] Last Admin: 06/01/20 08:53 Dose: 50 mcg Documented by: Clopidogrel Bisulfate (Plavix) 75 mg PO DAILY [facility] Last Admin: 06/01/20 08:54 Dose: 75 mg Documented by: Clopidogrel Bisulfate (Plavix) 75 mg PO DAILY [facility] Furosemide (Lasix) 40 mg IVPUSH NOW ONE Stop: 05/30/20 09:41 Last Admin: 05/30/20 09:46 Dose: 40 mg Documented by: Glipizide (Glucotrol) 5 mg PO DAILY [facility] Last Admin: 06/01/20 08:54 Dose: 5 mg Documented by: Glipizide (Glucotrol) 5 mg PO DAILY [facility] Ceftriaxone Sodium 1 gm/ (Sodium Chloride) 50 mls @ 100 mls/hr IV Q24H [facility] Last Infusion: 05/30/20 13:53 Dose: Infused Documented by: Gabapentin 400 Mg (Tab *Own Med*) 400 mg PO TID [facility] Last Admin: 06/01/20 09:05 Dose: 400 mg Documented by: Metoprolol Tartrate (100 Mg Tab *Own Med*) 50 mg PO BID [facility] Last Admin: 06/01/20 08:54 Dose: 50 mg Documented by: Potassium Chloride (Klor-Con 10) 20 meq PO DAILY [facility] Last Admin: 06/01/20 08:54 Dose: 20 meq Documented by: Sodium Chloride (Saline Flush) 10 ml FLUSH ASDIRECTED PRN PRN Reason: Keep Vein Open Last Admin: 05/30/20 08:41 Dose: 10 ml Documented by: - Exam Quality Assessment: Supplemental Oxygen General: Alert, Oriented HEENT: Pupils Equal, Pupils Reactive, Mucous Membr. Moist/[place] Neck: Supple, Trachea Midline Cardiovascular: Regular Rate, Regular Rhythm, No Murmurs GI/Abdominal Exam: Normal Bowel Sounds, Soft, Non-Tender, No Distention Extremities: Pedal Edema ([place] lower extremity edema with chronic stasis changes. Worse in the ankles. ), Leg Pain (Left ankle tenderness to gentle palpation. ) Peripheral Pulses: 1+: Dorsalis Pedis (L), Dorsalis Pedis (R), 2+: Radial (L), Radial (R) Skin: Warm, Dry, Intact, Other ([place]ilateal lower extremity edema with chronic st asis changes. Worse in the ankles. ) Neurological: No New Focal Deficit Psy/Mental Status: Alert, Normal Affect, Normal Mood Sepsis Event Note - Evaluation Sepsis Screening Result: No Definite Risk - Focused Exam Vital Signs: Vital Signs Temp Pulse Resp BP Pulse Ox 06/01/20 08:20 98.1 F 72 20 156/56 H 96 05/31/20 23:00 97.3 F 71 18 145/63 H 90 L Date Exam was Performed: 06/01/20 Time Exam was Performed: 10:55 - Problem List & Annotations (1) Bilateral ankle pain SNOMED Code(s): 748924692 Code(s): M25.571 - PAIN IN RIGHT ANKLE AND JOINTS OF RIGHT FOOT; M25.572 - PAIN IN LEFT ANKLE AND JOINTS OF LEFT FOOT Status: Acute Current Visit: Yes (2) Acute congestive heart failure SNOMED Code(s): 67965297 Code(s): I50.9 - HEART FAILURE, UNSPECIFIED Status: Acute Current Visit: Yes (3) Coronary artery disease SNOMED Code(s): 35078698 Code(s): I25.10 - ATHSCL HEART DISEASE OF [place] CORONARY ARTERY W/O ANG PCTRS Status: Acute Current Visit: Yes (4) Diabetes SNOMED Code(s): 72389084 Code(s): E11.9 - TYPE 2 DIABETES MELLITUS WITHOUT COMPLICATIONS Status: Acute Current Visit: Yes (5) Generalized weakness SNOMED Code(s): 59303808 Code(s): R53.1 - WEAKNESS Status: Acute Current Visit: No (6) Peripheral edema SNOMED Code(s): 038860340 Code(s): R60.9 - EDEMA, UNSPECIFIED Status: Acute Current Visit: No - Problem List Review Problem List Initiated/Reviewed/Updated: Yes - My Orders Last 24 Hours: My Active Orders 05/31/20 10:13 Blood Culture x2 Reflex Set [OM.PC] Stat 05/31/20 10:15 Pharmacy to Dose - Vancomycin See Dose Instructions .XX ASDIRECTED 05/31/20 11:00 cefTRIAXone [Rocephin] 2 gm Sodium Chloride 0.9% [Normal Saline] 100 ml IV Q24H 05/31/20 12:00 VANCOmycin/Water for INJ (PEG) [VANCOmycin 1.5 GM/300 ML Premix] 1.5 gm Premix Bag 1 bag IV Q12H 05/31/20 15:28 Patient Status [ADT] Routine Oxygen Therapy [RC] PRN VTE/DVT Education [RC] PER UNIT ROUTINE Vital Signs [RC] Q4H 06/01/20 10:30 Ankle wo Cont Lt [MR] Routine 06/01/20 10:53 Ankle w Cont Lt [CT] Routine 06/02/20 11:30 VANCOMYCIN TROUGH [CHEM] Timed - Plan Plan:: Patient is a 70-year-old male with medical history significant for CAD, dyslipidemia, hypertension, diabetes, and morbid obesity who is admitted for acute CHF and sepsis. #Acute congestive heart failure Continue Lasix Daily standing weight Strict I's and O's Continue metoprolol Follow-up on echocardiogram #Possible osteomyelitis versus septic arthritis: Patient with bilateral ankle pain, worse in the right ankle today. ESR and CRP elevated. XR ankle shows joint effusions. Follow up on blood cultures Continue Rocephin dose to 2 mg daily Continue vancomycin Obtain left ankle CT'; no MRI because cannot ascertain whether he has metallic hardware. #CAD: Continue aspirin, Plavix, metoprolol, and statin #Hypertension: Blood pressure seems to be improved Continue current medications #Type 2 diabetes Sliding scale insulin hypoglycemia protocol Cautious use of glipizide if patient is not eating #Chronic pain Continue Neurontin #DVT prophylaxis: Heparin
[2020-06-01] MEDS ORDERED: Iopamidol 612 MG/ML 100 ML Bottle IVPUSH ONE (11:07)
[2020-06-01] MEDS: Gabapentin 400 MG Cap PO SCH ×2 (14:52→21:11)
--- NOTE | 2020-06-01 15:15 | CT ---
PROCEDURE INFORMATION: Exam: CT Left Lower Extremity With Contrast, Ankle Exam date and time: 06/01/2020 11:24 AM Age: 70 years old Clinical indication: Pain; Ankle; Left; Additional info: Left ankle pain x7 days; Esr, crp, wbc elevated. TECHNIQUE: Imaging protocol: CT of the Left lower extremity with intravenous contrast was performed. Exam includes both ankles and feet. Radiation optimization: All CT scans at this facility use at least one of these dose optimization techniques: automated exposure control; mA and/or kV adjustment per patient size (includes targeted exams where dose is matched to clinical indication); or iterative reconstruction. Contrast material: ISOVUE 300; Contrast volume: 1000 ml; Contrast route: INTRAVENOUS (IV); COMPARISON: CR Ankle 2V Bi 05/31/2020 11:14 AM FINDINGS: Bones/joints: An osteochondral lesion involves the medial talar dome on the left. A healed fracture involves the distal right fibula with secondary degenerative change between the distal tibia and fibula on the right. Osteochondral bodies around each ankle joint are consistent with remote trauma. Large calcaneal enthesophytes are present bilaterally. There is no evidence of osteomyelitis. No acute fracture or dislocation is present. Soft tissues: There is a mild amount of edema in the subcutaneous fat of both feet and ankles, which could represent cellulitis in the proper clinical context. There is no focal fluid collection or soft tissue gas to suggest an abscess. The contralateral right foot intrinsic foot musculature is moderately atrophied. IMPRESSION: 1. Mild diffuse bilateral subcutaneous edema that could reflect cellulitis. 2. No abscess or osteomyelitis.
[2020-06-01] MEDS ORDERED: Metoprolol Tartrate 50 MG Tab PO SCH (21:00)
[2020-06-01] MEDS ORDERED: atorvaSTATin 20 MG Tab PO SCH (21:00)
[2020-06-01] MEDS: atorvaSTATin 20 MG Tab PO SCH (21:12)
[2020-06-01] MEDS: Metoprolol Tartrate 50 MG Tab PO SCH (21:13)
[2020-06-01] MEDS: Temazepam 15 MG Cap PO PRN (21:13)
[2020-06-02] MEDS: Heparin Sodium 5,000 Units/ML Vial SUBCUT SCH ×3 (05:13→22:11)
[2020-06-02] MEDS: Sodium Chloride 0.9% 10 ML Syringe FLUSH PRN ×2 (08:40→11:49)
[2020-06-02] MEDS: Insulin Lispro 100 Units/ML 3 ML Vial SUBCUT SCH ×4 (08:41→20:58)
[2020-06-02] MEDS: Metoprolol Tartrate 50 MG Tab PO SCH ×2 (08:42→20:48)
[2020-06-02] MEDS: Cholecalciferol (Vitamin D3) 25 MCG Tab PO SCH (08:42)
[2020-06-02] MEDS: Gabapentin 400 MG Cap PO SCH ×3 (08:43→20:49)
[2020-06-02] MEDS: glipiZIDE 5 MG Tab PO SCH (08:43)
[2020-06-02] MEDS: Clopidogrel 75 MG Tab PO SCH (08:43)
[2020-06-02] MEDS: Aspirin 81 MG Tab.Chew PO SCH (08:44)
[2020-06-02] MEDS: Furosemide 40 MG/4 ML VIAL IVPUSH SCH ×2 (08:45→14:02)
[2020-06-02] MEDS: Nystatin Crm 15 GM Tube TOP SCH ×2 (08:53→20:52)
[2020-06-02] MEDS: POTASSIUM CHLOR 10 MEQ PO SCH (08:55)
[2020-06-02] MEDS ORDERED: Clopidogrel 75 MG Tab PO SCH (09:00)
[2020-06-02] MEDS ORDERED: glipiZIDE 5 MG Tab PO SCH (09:00)
--- NOTE | 2020-06-02 10:45 | PCM.PN ---
- General Info Date of Service: 06/02/20 Admission Dx/Problem (Free Text): Admission Diagnosis/Problem Admission Diagnosis/Problem Peripheral edema Subjective Update: Today patient reports that he feels pain in his left ankle but improved compared to the past few days. Denies fevers, cough, chest pain, nausea, vomiting, diarrhea, constipation, dysuria, hematuria, or any new symptoms. - Patient Data Vitals - Most Recent: Last Vital Signs Temp 96.4 F L 06/02/20 07:00 Pulse 74 06/02/20 08:42 Resp 16 06/02/20 07:00 BP 146/65 H 06/02/20 08:42 Pulse Ox 89 L 06/02/20 07:00 Weight - Most Recent: 284 lb 3.2 oz I&O - Last 24 Hours: Intake & Output 06/01/20 06/02/20 06/02/20 22:59 06:59 14:59 Intake Total 1570 1000 620 Output Total 850 325 Balance 720 675 620 Lab Results Last 24 Hours: Laboratory Results - last 24 hr 06/01/20 06/01/20 06/01/20 Range/Units 11:33 13:22 17:03 POC Glucose 66 L 95 (83-110) mg/dl Urine Color Yellow (YELLOW) Urine Appearance Clear (CLEAR) Urine pH 5.5 (5.0-9.0) Ur Specific [place] 1.015 (1.005-1.030) Urine Protein Negative (NEGATIVE) Urine Glucose (UA) Negative (NEGATIVE) Urine Ketones Negative (NEGATIVE) Urine Occult Blood Trace-intact H (NEGATIVE) Urine Nitrite Negative (NEGATIVE) Urine Bilirubin Negative (NEGATIVE) Urine Urobilinogen 0.2 (0.2-1.0) mg/dL Ur Leukocyte Esterase Negative (NEGATIVE) 06/01/20 06/02/20 Range/Units 21:00 08:01 POC Glucose 129 H 152 H (83-110) mg/dl Urine Color (YELLOW) Urine Appearance (CLEAR) Urine pH (5.0-9.0) Ur Specific [place] (1.005-1.030) Urine Protein (NEGATIVE) Urine Glucose (UA) (NEGATIVE) Urine Ketones (NEGATIVE) Urine Occult Blood (NEGATIVE) Urine Nitrite (NEGATIVE) Urine Bilirubin (NEGATIVE) Urine Urobilinogen (0.2-1.0) mg/dL Ur Leukocyte Esterase (NEGATIVE) Tariq Results Last 24 Hours: Microbiology 05/30/20 09:01 Aerobic Blood Culture - Preliminary Blood - Venous - Lab Draw NO GROWTH AFTER 3 DAYS Anaerobic Blood Culture - Preliminary NO GROWTH AFTER 3 DAYS 05/30/20 08:53 Aerobic Blood Culture - Preliminary Blood - Venous NO GROWTH AFTER 3 DAYS Anaerobic Blood Culture - Preliminary NO GROWTH AFTER 3 DAYS 05/30/20 15:20 Gram Stain - Final Sputum - Expectorated Sputum Culture - Final Normal [place] 05/30/20 13:20 Urine Culture - Final Urine, Clean Catch Med Orders - Current: Current Medications Acetaminophen (Tylenol) 650 mg PO Q4H PRN PRN Reason: Pain (Mild 1-3)/fever Aspirin (Aspirin) 81 mg PO WITHBREAKFAST [facility] Last Admin: 06/02/20 08:44 Dose: 81 mg Documented by: Atorvastatin Calcium (Lipitor) 10 mg PO BEDTIME [facility] Last Admin: 06/01/20 21:12 Dose: 10 mg Documented by: Cholecalciferol (Vitamin D3) 50 mcg PO DAILY [facility] Last Admin: 06/02/20 08:42 Dose: 50 mcg Documented by: Clopidogrel Bisulfate (Plavix) 75 mg PO DAILY [facility] Last Admin: 06/02/20 08:43 Dose: 75 mg Documented by: Furosemide (Lasix) 40 mg IVPUSH BIDDIURETIC [facility] Last Admin: 06/02/20 08:45 Dose: 40 mg Documented by: Gabapentin (Neurontin) 400 mg PO TID [facility] Last Admin: 06/02/20 08:43 Dose: 400 mg Documented by: Glipizide (Glucotrol) 5 mg PO DAILY [facility] Last Admin: 06/02/20 08:43 Dose: 5 mg Documented by: Heparin Sodium (Porcine) (Heparin Sodium) 5,000 units SUBCUT Q8HR [facility] Last Admin: 06/02/20 05:13 Dose: 5,000 units Documented by: Ceftriaxone Sodium 2 gm/ (Sodium Chloride) 100 mls @ 200 mls/hr IV Q24H [facility] Last Admin: 06/01/20 10:59 Dose: 200 mls/hr Documented by: Vancomycin HCl 1.5 gm/ Premix 300 mls @ 200 mls/hr IV Q12H [facility] Last Infusion: 06/02/20 01:16 Dose: Infused Documented by: Insulin Human Lispro (Humalog) 0 unit SUBCUT WITHMEALSANDBED [facility]; Protocol Last Admin: 06/02/20 08:41 Dose: 1 unit Documented by: Metoprolol Tartrate (Lopressor) 50 mg PO BID [facility] Last Admin: 06/02/20 08:42 Dose: 50 mg Documented by: Nystatin (Nystatin Crm) 1 gm TOP BID [facility] Last Admin: 06/02/20 08:53 Dose: 1 applic Documented by: Ondansetron HCl (Zofran Odt) 4 mg PO Q6H PRN PRN Reason: nausea, able to take PO Ondansetron HCl (Zofran) 4 mg IVPUSH Q6H PRN PRN Reason: Nausea/Vomiting Oxycodone HCl (Oxycodone) 5 mg PO Q4H PRN PRN Reason: Pain (moderate 4-6) Last Admin: 05/30/20 23:21 Dose: 5 mg Documented by: Potassium Chloride (Klor-Con 10) 20 meq PO DAILY [facility] Last Admin: 06/02/20 08:55 Dose: 20 meq Documented by: Sodium Chloride (Saline Flush) 10 ml FLUSH ASDIRECTED PRN PRN Reason: Keep Vein Open Last Admin: 06/02/20 08:40 Dose: 10 ml Documented by: Temazepam (Restoril) 15 mg PO BEDTIME PRN PRN Reason: Sleep Last Admin: 06/01/20 21:13 Dose: 15 mg Documented by: Vancomycin HCl (Pharmacy To Dose - Vancomycin) 0 dose .XX ASDIRECTED [facility] Discontinued Medications Atorvastatin Calcium (Lipitor) 10 mg PO BEDTIME [facility] Last Admin: 05/31/20 22:17 Dose: 10 mg Documented by: Atorvastatin Calcium (Lipitor) 10 mg PO BEDTIME [facility] Cholecalciferol (Vitamin D3) 50 mcg PO DAILY [facility] Last Admin: 06/01/20 08:53 Dose: 50 mcg Documented by: Clopidogrel Bisulfate (Plavix) 75 mg PO DAILY [facility] Last Admin: 06/01/20 08:54 Dose: 75 mg Documented by: Clopidogrel Bisulfate (Plavix) 75 mg PO DAILY [facility] Furosemide (Lasix) 40 mg IVPUSH NOW ONE Stop: 05/30/20 09:41 Last Admin: 05/30/20 09:46 Dose: 40 mg Documented by: Glipizide (Glucotrol) 5 mg PO DAILY [facility] Last Admin: 06/01/20 08:54 Dose: 5 mg Documented by: Glipizide (Glucotrol) 5 mg PO DAILY [facility] Ceftriaxone Sodium 1 gm/ (Sodium Chloride) 50 mls @ 100 mls/hr IV Q24H [facility] Last Infusion: 05/30/20 13:53 Dose: Infused Documented by: Iopamidol (Isovue-300 (61%)) 100 ml IVPUSH ONETIME ONE Stop: 06/01/20 11:08 Last Admin: 06/01/20 11:41 Dose: 100 ml Documented by: Metoprolol Tartrate (Lopressor) 500 mg PO BID [facility] Gabapentin 400 Mg (Tab *Own Med*) 400 mg PO TID [facility] Last Admin: 06/01/20 09:05 Dose: 400 mg Documented by: Metoprolol Tartrate (100 Mg Tab *Own Med*) 50 mg PO BID [facility] Last Admin: 06/01/20 08:54 Dose: 50 mg Documented by: Potassium Chloride (Klor-Con 10) 20 meq PO DAILY [facility] Last Admin: 06/01/20 08:54 Dose: 20 meq Documented by: Sodium Chloride (Saline Flush) 10 ml FLUSH ASDIRECTED PRN PRN Reason: Keep Vein Open Last Admin: 05/30/20 08:41 Dose: 10 ml Documented by: - Exam General: Alert, Oriented, Cooperative, Mild Distress HEENT: Pupils Equal, Pupils Reactive, Mucous Membr. Moist/[place] Neck: Supple, Trachea Midline Lungs: Clear to Auscultation, Normal Respiratory Effort Cardiovascular: Regular Rate, Regular Rhythm GI/Abdominal Exam: Normal Bowel Sounds, Soft, Non-Tender, No Organomegaly Extremities: Pedal Edema (Bilateral ankle swelling, improved. ), Leg Pain (Bilateral ankle tenderness to palpation, but improved compared to last two days. ) Skin: Warm, Dry, Intact, Other (Chronic stasis changes. ) Neurological: No New Focal Deficit Psy/Mental Status: Alert, Normal Affect, Normal Mood Sepsis Event Note - Evaluation Sepsis Screening Result: No Definite Risk - Focused Exam Vital Signs: Vital Signs Temp Pulse Pulse Resp BP BP Pulse Ox 06/02/20 08:42 74 146/65 H 06/02/20 07:00 96.4 F L 74 16 149/65 H 89 L 06/02/20 05:00 98 F 69 20 147/60 H 95 06/01/20 23:45 97.8 F 71 20 141/61 H 87 L Date Exam was Performed: 06/02/20 Time Exam was Performed: 10:42 - Problem List & Annotations (1) Bilateral ankle pain SNOMED Code(s): 967456897 Code(s): M25.571 - PAIN IN RIGHT ANKLE AND JOINTS OF RIGHT FOOT; M25.572 - PAIN IN LEFT ANKLE AND JOINTS OF LEFT FOOT Status: Acute Current Visit: Yes (2) Acute congestive heart failure SNOMED Code(s): 52352476 Code(s): I50.9 - HEART FAILURE, UNSPECIFIED Status: Acute Current Visit: Yes (3) Coronary artery disease SNOMED Code(s): 16785610 Code(s): I25.10 - ATHSCL HEART DISEASE OF [place] CORONARY ARTERY W/O ANG PCTRS Status: Acute Current Visit: Yes (4) Diabetes SNOMED Code(s): 01940951 Code(s): E11.9 - TYPE 2 DIABETES MELLITUS WITHOUT COMPLICATIONS Status: Acute Current Visit: Yes (5) Generalized weakness SNOMED Code(s): 11770554 Code(s): R53.1 - WEAKNESS Status: Acute Current Visit: No (6) Peripheral edema SNOMED Code(s): 545699384 Code(s): R60.9 - EDEMA, UNSPECIFIED Status: Acute Current Visit: No - Problem List Review Problem List Initiated/Reviewed/Updated: Yes - My Orders Last 24 Hours: My Active Orders 06/01/20 21:00 Metoprolol Tartrate [Lopressor] 50 mg PO BID 06/02/20 11:30 VANCOMYCIN TROUGH [CHEM] Timed 06/03/20 05:11 BASIC METABOLIC PANEL,BMP [CHEM] AM CBC W/O DIFF,HEMOGRAM [HEME] AM MAGNESIUM [CHEM] AM PHOSPHORUS [CHEM] AM - Plan Plan:: Patient is a 70-year-old male with medical history significant for CAD, dyslipidemia, hypertension, diabetes, and morbid obesity who is admitted for acute CHF and sepsis. #Acute congestive heart failure Continue Lasix Daily standing weight Strict I's and O's Continue metoprolol Follow-up on echocardiogram #Cellulitis of bilateral lower extremities: Patient with bilateral ankle pain. ESR and CRP elevated. XR ankle shows joint effusions. Follow up on blood cultures Continue Rocephin dose to 2 mg daily Continue vancomycin Left ankle CT negative for osteo. #CAD: Continue aspirin, Plavix, metoprolol, and statin #Hypertension: Blood pressure seems to be improved Continue current medications #Type 2 diabetes Sliding scale insulin hypoglycemia protocol Cautious use of glipizide if patient is not eating #Chronic pain Continue Neurontin #DVT prophylaxis: Heparin
[2020-06-02] MEDS: cefTRIAXone 2 GM in Sodium Chloride 0.9% 100 ML IV SCH (11:49)
[2020-06-02] MEDS: atorvaSTATin 20 MG Tab PO SCH (20:48)
[2020-06-03] MEDS: oxyCODONE 5 MG Tab PO PRN ×2 (02:18→21:08)
[2020-06-03] MEDS: Heparin Sodium 5,000 Units/ML Vial SUBCUT SCH ×3 (05:50→21:34)
[2020-06-03] MEDS: POTASSIUM CHLOR 10 MEQ PO SCH (08:42)
[2020-06-03] MEDS: glipiZIDE 5 MG Tab PO SCH (08:42)
[2020-06-03] MEDS: Clopidogrel 75 MG Tab PO SCH (08:42)
[2020-06-03] MEDS: Gabapentin 400 MG Cap PO SCH ×3 (08:43→21:07)
[2020-06-03] MEDS: Metoprolol Tartrate 50 MG Tab PO SCH ×2 (08:43→21:07)
[2020-06-03] MEDS: Aspirin 81 MG Tab.Chew PO SCH (08:43)
[2020-06-03] MEDS: Nystatin Crm 15 GM Tube TOP SCH ×2 (08:44→21:11)
[2020-06-03] MEDS: Cholecalciferol (Vitamin D3) 25 MCG Tab PO SCH (08:44)
[2020-06-03] MEDS: Furosemide 40 MG/4 ML VIAL IVPUSH SCH ×2 (08:45→14:04)
[2020-06-03] MEDS: Sodium Chloride 0.9% 10 ML Syringe FLUSH PRN ×4 (08:45→14:04)
[2020-06-03] MEDS: Insulin Lispro 100 Units/ML 3 ML Vial SUBCUT SCH ×4 (08:46→21:16)
--- NOTE | 2020-06-03 10:45 | PN ---
DATE: 06/03/2020 SUBJECTIVE: The patient is still complaining of pain on the left foot, especially when he bears weight on it, but otherwise, he has been doing fairly well and CAT scan of the left ankle did not show any signs of abscess or osteomyelitis, but rather, more of cellulitis. Blood cultures also came back negative for any growth. Otherwise, the patient has been doing fairly well. He denies any chest pain, shortness of breath, abdominal pain, or any other complaints. OBJECTIVE: Vital signs: Blood pressure is 138/78, pulse of 65, respirations of 18, temperature of 98.3. Heart: Regular rate and rhythm. Normal S1 and S2. No gallops. No rubs. Lungs: Diminished breath sounds on both bases, but no significant crackles. No wheezing. Abdomen: Obese, soft, nontender. Extremities: Remarkable for stasis changes bilaterally, but no significant pedal edema and there is no significant reproducible tenderness with palpation. MEDICATIONS: Reviewed. PLAN: I am going to discontinue vancomycin but we will continue with his Rocephin and we will continue with the rest of his management. [facility] /[id number]
[2020-06-03] MEDS: cefTRIAXone 2 GM in Sodium Chloride 0.9% 100 ML IV SCH (11:53)
[2020-06-03] MEDS: atorvaSTATin 10 MG Tab PO SCH (21:07)
[2020-06-03] MEDS: Temazepam 15 MG Cap PO PRN (21:08)
[2020-06-04] MEDS: Heparin Sodium 5,000 Units/ML Vial SUBCUT SCH ×3 (05:35→21:48)
[2020-06-04] MEDS: Aspirin 81 MG Tab.Chew PO SCH (08:41)
[2020-06-04] MEDS: Furosemide 40 MG/4 ML VIAL IVPUSH SCH ×2 (08:42→15:03)
[2020-06-04] MEDS: glipiZIDE 5 MG Tab PO SCH (08:43)
[2020-06-04] MEDS: Metoprolol Tartrate 50 MG Tab PO SCH ×2 (08:43→21:50)
[2020-06-04] MEDS: POTASSIUM CHLOR 10 MEQ PO SCH (08:43)
[2020-06-04] MEDS: Gabapentin 400 MG Cap PO SCH ×3 (08:44→21:52)
[2020-06-04] MEDS: Nystatin Crm 15 GM Tube TOP SCH ×2 (08:44→21:48)
[2020-06-04] MEDS: Clopidogrel 75 MG Tab PO SCH (08:45)
[2020-06-04] MEDS: Cholecalciferol (Vitamin D3) 25 MCG Tab PO SCH (08:46)
[2020-06-04] MEDS: Insulin Lispro 100 Units/ML 3 ML Vial SUBCUT SCH ×4 (09:11→21:49)
--- NOTE | 2020-06-04 11:04 | PN ---
DATE: 06/04/2020 SUBJECTIVE: The patient continues to do well. He still has some mild pain on his left foot especially with weightbearing but otherwise, no other significant ongoing complaints. He denies any chest pain, shortness of breath, fever, chills, or abdominal pain. OBJECTIVE: Vital Signs: Blood pressure is 138/73, pulse of 77, respirations of 16, temperature of 97.8, and saturation is 91% on room air. Heart: Regular rate and rhythm. Normal S1 and S2. No gallops. No rubs. Lungs: Equal bilaterally. No crackles, no wheezing. Abdomen: Obese, soft, and nontender. Bowel sounds positive. Extremities: Negative for any significant pedal edema. No calf tenderness. Examination of the left foot is negative for any significant swelling or reproducible tenderness with palpation. PLAN: We will continue with his present management and continue with Rocephin and the rest of his management. [facility] /[id number]
[2020-06-04] MEDS: cefTRIAXone 2 GM in Sodium Chloride 0.9% 100 ML IV SCH (12:27)
[2020-06-04] MEDS ORDERED: traMADol 50 MG Tab PO PRN (20:56)
[2020-06-04] MEDS: atorvaSTATin 10 MG Tab PO SCH (21:52)
[2020-06-05] MEDS: Heparin Sodium 5,000 Units/ML Vial SUBCUT SCH (05:49)
[2020-06-05] MEDS: Insulin Lispro 100 Units/ML 3 ML Vial SUBCUT SCH ×2 (08:32→11:52)
[2020-06-05] MEDS: Metoprolol Tartrate 50 MG Tab PO SCH (08:33)
[2020-06-05] MEDS: glipiZIDE 5 MG Tab PO SCH (08:33)
[2020-06-05] MEDS: Aspirin 81 MG Tab.Chew PO SCH (08:33)
[2020-06-05] MEDS: Cholecalciferol (Vitamin D3) 25 MCG Tab PO SCH (08:33)
[2020-06-05] MEDS: POTASSIUM CHLOR 10 MEQ PO SCH (08:34)
[2020-06-05] MEDS: Clopidogrel 75 MG Tab PO SCH (08:34)
[2020-06-05] MEDS: Sodium Chloride 0.9% 10 ML Syringe FLUSH PRN ×2 (08:34→11:28)
[2020-06-05] MEDS: Furosemide 40 MG/4 ML VIAL IVPUSH SCH (08:34)
[2020-06-05] MEDS: Gabapentin 400 MG Cap PO SCH (08:34)
[2020-06-05] MEDS: Nystatin Crm 15 GM Tube TOP SCH (08:35)
[2020-06-05] MEDS: cefTRIAXone 2 GM in Sodium Chloride 0.9% 100 ML IV SCH (11:27)
[2020-06-05 11:54] VITALS: BP 121/53; PULSE 64
--- NOTE | 2020-06-05 12:22 | PCM.DCSUM1 ---
Discharge Summary - Hospital Course Free Text/Narrative:: Patient is a 70-year-old male with medical history significant for CAD, dyslipidemia, hypertension, diabetes, and morbid obesity who is admitted for acute CHF and sepsis. He was also complaining of bilateral ankle pain unable to walk. #Acute congestive heart failure consider to diastolic dysfunction Echocardiogram showed ejection fraction of 50-55%, grade 1 diastolic dysfunction Improved with diuretics Continue Lasix Continue metoprolol #Cellulitis of bilateral lower extremities: Patient with bilateral ankle pain. ESR and CRP elevated. XR ankle shows joint effusions. Left ankle CT negative for osteo. Negative blood cultures Was treated with IV Rocephin and vancomycin Finished antibiotic treatment #CAD: Continue aspirin, Plavix, metoprolol, and statin #Hypertension: Blood pressure seems to be improved Continue metoprolol #Type 2 diabetes Sliding scale insulin hypoglycemia protocol #Chronic pain Continue Neurontin We will transfer to swing bed for further physical and occupational therapy Diagnosis: Stroke: No - Discharge Data Discharge Date: 06/05/20 Discharge Disposition: DC/Tfer W/I Hosp To [place] [id number] Condition: Fair - Referral to Home Health Primary Care Physician: PCP None - Discharge Diagnosis/Problem(s) (1) Acute congestive heart failure SNOMED Code(s): 55782987 ICD Code: I50.9 - HEART FAILURE, UNSPECIFIED Status: Acute Current Visit: Yes (2) Diabetes SNOMED Code(s): 75122025 ICD Code: E11.9 - TYPE 2 DIABETES MELLITUS WITHOUT COMPLICATIONS Status: Acute Current Visit: Yes (3) Coronary artery disease SNOMED Code(s): 10904226 ICD Code: I25.10 - ATHSCL HEART DISEASE OF [place] CORONARY ARTERY W/O ANG PCTRS Status: Acute Current Visit: Yes (4) Generalized weakness SNOMED Code(s): 16067042 ICD Code: R53.1 - WEAKNESS Status: Acute Current Visit: No (5) Peripheral edema SNOMED Code(s): 573692356 ICD Code: R60.9 - EDEMA, UNSPECIFIED Status: Acute Current Visit: No - Patient Summary/Data Consults: Consultations 05/30/20 14:01 OT Evaluation and Treatment [CONS] Routine PT Evaluation and Treatment [CONS] Routine - Patient Instructions Diet: Heart Healthy Diet Activity: As Tolerated - Discharge Plan *PRESCRIPTION DRUG MONITORING PROGRAM REVIEWED*: No *COPY OF PRESCRIPTION DRUG MONITORING REPORT IN PATIENT MARISOL: No Home Medications: Home Meds Cholecalciferol (Vitamin D3) [Vitamin D3] 50 mcg PO DAILY 05/30/20 [History] Clopidogrel [Plavix] 75 mg PO DAILY 05/30/20 [History] Furosemide 40 mg PO DAILY 05/30/20 [History] Gabapentin [Neurontin] 400 mg PO TID 05/30/20 [History] Metoprolol Tartrate 50 mg PO BID 05/30/20 [History] Potassium Chloride 20 meq PO DAILY 05/30/20 [History] atorvaSTATin Calcium [Atorvastatin Calcium] 10 mg PO BEDTIME 05/30/20 [History] glipiZIDE [Glucotrol] 5 mg PO DAILY 05/30/20 [History] Oxygen Therapy Mode: Room Air - Discharge Summary/Plan Comment DC Time >30 min.: No - General Info Date of Service: 06/05/20 Functional Status: Reports: Pain Controlled, Tolerating Diet (Improving), Ambulating (Improving) - Review of Systems Pulmonary: Denies: Shortness of Breath, Cough Cardiovascular: Reports: Edema. Denies: Chest Pain Gastrointestinal: Reports: Other (Obese). Denies: Abdominal Pain (Trace bilateral) Musculoskeletal: Reports: Foot Pain (Bilateral) Neurological: Denies: Confusion - Patient Data Vitals - Most Recent: Last Vital Signs Temp 97.8 F 06/05/20 11:53 Pulse 64 06/05/20 11:53 Resp 20 06/05/20 11:53 BP 121/53 L 06/05/20 11:53 Pulse Ox 93 L 06/05/20 11:53 Weight - Most Recent: 283 lb 8 oz I&O - Last 24 hours: Intake & Output 06/04/20 06/05/20 06/05/20 22:59 06:59 14:59 Intake Total 1340 Output Total 1400 700 Balance -60 -700 Lab Results - Last 24 hrs: Laboratory Results - last 24 hr 06/04/20 06/04/20 06/05/20 Range/Units 17:04 20:30 07:47 POC Glucose 102 207 H 143 H (83-110) mg/dl 06/05/20 Range/Units 11:46 POC Glucose 117 H (83-110) mg/dl TIM Results - Last 24 hrs: Microbiology 05/30/20 09:01 Aerobic Blood Culture - Final Blood - Venous - Lab Draw NO GROWTH AFTER 5 DAYS Anaerobic Blood Culture - Final NO GROWTH AFTER 5 DAYS 05/30/20 08:53 Aerobic Blood Culture - Final Blood - Venous NO GROWTH AFTER 5 DAYS Anaerobic Blood Culture - Final NO GROWTH AFTER 5 DAYS Med Orders - Current: Current Medications Acetaminophen (Tylenol) 650 mg PO Q4H PRN PRN Reason: Pain (Mild 1-3)/fever Aspirin (Aspirin) 81 mg PO WITHBREAKFAST [facility] Last Admin: 06/05/20 08:33 Dose: 81 mg Documented by: Atorvastatin Calcium (Lipitor) 10 mg PO BEDTIME [facility] Last Admin: 06/04/20 21:52 Dose: 10 mg Documented by: Cholecalciferol (Vitamin D3) 50 mcg PO DAILY [facility] Last Admin: 06/05/20 08:33 Dose: 50 mcg Documented by: Clopidogrel Bisulfate (Plavix) 75 mg PO DAILY [facility] Last Admin: 06/05/20 08:34 Dose: 75 mg Documented by: Furosemide (Lasix) 40 mg IVPUSH BIDDIURETIC [facility] Last Admin: 06/05/20 08:34 Dose: 40 mg Documented by: Gabapentin (Neurontin) 400 mg PO TID [facility] Last Admin: 06/05/20 08:34 Dose: 400 mg Documented by: Glipizide (Glucotrol) 5 mg PO DAILY [facility] Last Admin: 06/05/20 08:33 Dose: 5 mg Documented by: Heparin Sodium (Porcine) (Heparin Sodium) 5,000 units SUBCUT Q8HR [facility] Last Admin: 06/05/20 05:49 Dose: Not Given Documented by: Ceftriaxone Sodium 2 gm/ (Sodium Chloride) 100 mls @ 200 mls/hr IV Q24H [facility] Last Infusion: 06/05/20 12:03 Dose: Infused Documented by: Insulin Human Lispro (Humalog) 0 unit SUBCUT WITHMEALSANDBED [facility]; Protocol Last Admin: 06/05/20 11:52 Dose: Not Given Documented by: Metoprolol Tartrate (Lopressor) 50 mg PO BID [facility] Last Admin: 06/05/20 08:33 Dose: 50 mg Documented by: Nystatin (Nystatin Crm) 1 gm TOP BID [facility] Last Admin: 06/05/20 08:35 Dose: 1 applic Documented by: Ondansetron HCl (Zofran Odt) 4 mg PO Q6H PRN PRN Reason: nausea, able to take PO Ondansetron HCl (Zofran) 4 mg IVPUSH Q6H PRN PRN Reason: Nausea/Vomiting Potassium Chloride (Klor-Con 10) 20 meq PO DAILY [facility] Last Admin: 06/05/20 08:34 Dose: 20 meq Documented by: Sodium Chloride (Saline Flush) 10 ml FLUSH ASDIRECTED PRN PRN Reason: Keep Vein Open Last Admin: 06/05/20 11:28 Dose: 10 ml Documented by: Temazepam (Restoril) 15 mg PO BEDTIME PRN PRN Reason: Sleep Last Admin: 06/03/20 21:08 Dose: 15 mg Documented by: Tramadol HCl (Ultram) 50 mg PO Q8H PRN PRN Reason: Pain Last Admin: 06/04/20 21:53 Dose: 50 mg Documented by: Discontinued Medications Atorvastatin Calcium (Lipitor) 10 mg PO BEDTIME [facility] Last Admin: 05/31/20 22:17 Dose: 10 mg Documented by: Atorvastatin Calcium (Lipitor) 10 mg PO BEDTIME AMOL Atorvastatin Calcium (Lipitor) 10 mg PO BEDTIME [facility] Last Admin: 06/02/20 20:48 Dose: 10 mg Documented by: Cholecalciferol (Vitamin D3) 50 mcg PO DAILY [facility] Last Admin: 06/01/20 08:53 Dose: 50 mcg Documented by: Clopidogrel Bisulfate (Plavix) 75 mg PO DAILY [facility] Last Admin: 06/01/20 08:54 Dose: 75 mg Documented by: Clopidogrel Bisulfate (Plavix) 75 mg PO DAILY [facility] Furosemide (Lasix) 40 mg IVPUSH NOW ONE Stop: 05/30/20 09:41 Last Admin: 05/30/20 09:46 Dose: 40 mg Documented by: Glipizide (Glucotrol) 5 mg PO DAILY [facility] Last Admin: 06/01/20 08:54 Dose: 5 mg Documented by: Glipizide (Glucotrol) 5 mg PO DAILY [facility] Ceftriaxone Sodium 1 gm/ (Sodium Chloride) 50 mls @ 100 mls/hr IV Q24H [facility] Last Infusion: 05/30/20 13:53 Dose: Infused Documented by: Vancomycin HCl 1.5 gm/ Premix 300 mls @ 200 mls/hr IV Q12H [facility] Last Admin: 06/02/20 12:40 Dose: Not Given Documented by: Vancomycin HCl 1.5 gm/ Premix 300 mls @ 200 mls/hr IV Q24H [facility] Last Admin: 06/02/20 17:51 Dose: 200 mls/hr Documented by: Iopamidol (Isovue-300 (61%)) 100 ml IVPUSH ONETIME ONE Stop: 06/01/20 11:08 Last Admin: 06/01/20 11:41 Dose: 100 ml Documented by: Metoprolol Tartrate (Lopressor) 500 mg PO BID [facility] Gabapentin 400 Mg (Tab *Own Med*) 400 mg PO TID [facility] Last Admin: 06/01/20 09:05 Dose: 400 mg Documented by: Metoprolol Tartrate (100 Mg Tab *Own Med*) 50 mg PO BID [facility] Last Admin: 06/01/20 08:54 Dose: 50 mg Documented by: Oxycodone HCl (Oxycodone) 5 mg PO Q4H PRN PRN Reason: Pain (moderate 4-6) Last Admin: 06/03/20 21:08 Dose: 5 mg Documented by: Potassium Chloride (Klor-Con 10) 20 meq PO DAILY [facility] Last Admin: 06/01/20 08:54 Dose: 20 meq Documented by: Sodium Chloride (Saline Flush) 10 ml FLUSH ASDIRECTED PRN PRN Reason: Keep Vein Open Last Admin: 05/30/20 08:41 Dose: 10 ml Documented by: Vancomycin HCl (Pharmacy To Dose - Vancomycin) 0 dose .XX ASDIRECTED [facility] - Exam General: Reports: Alert, Oriented Neck: Reports: Supple Lungs: Reports: Clear to Auscultation, Normal Respiratory Effort Cardiovascular: Reports: Regular Rate, Regular Rhythm GI/Abdominal Exam: Normal Bowel Sounds, Soft, Non-Tender Extremities: No Pedal Edema
== END 2020-06-05 13:17 | disposition swing bed (61) | DRG 871 ==
LOC: DL.ED 08:20 → DL.MS 09:47 → DL.ED 09:53 → DL.MS 10:21 → OBSVTOIN 05-31 15:28 → MERGE 05-31 15:28
PROVIDERS: ADMIT Internal Medicine; ATTEND Internal Medicine
DX: A41.9 Sepsis, unspecified organism (principal); I50.9 Heart failure, unspecified; I50.31 Acute diastolic (congestive) heart failure; L03.116 Cellulitis of left lower limb; L03.115 Cellulitis of right lower limb; Z68.41 Body mass index [BMI] 40.0-44.9, adult; Z79.899 Other long term (current) drug therapy; I25.10 Atherosclerotic heart disease of native coronary artery without angina pectoris; Z79.82 Long term (current) use of aspirin; Z86.73 Personal history of transient ischemic attack (TIA), and cerebral infarction without residual deficits; I11.0 Hypertensive heart disease with heart failure; F17.200 Nicotine dependence, unspecified, uncomplicated; E11.9 Type 2 diabetes mellitus without complications; G89.29 Other chronic pain; Z79.02 Long term (current) use of antithrombotics/antiplatelets; Z79.84 Long term (current) use of oral hypoglycemic drugs; H54.7 Unspecified visual loss; E78.00 Pure hypercholesterolemia, unspecified; I25.2 Old myocardial infarction; Z87.01 Personal history of pneumonia (recurrent); E66.9 Obesity, unspecified; Z98.890 Other specified postprocedural states; F17.210 Nicotine dependence, cigarettes, uncomplicated
CPT/HCPCS: 36415 ×2; 71045; 73600; 80048; 80053; 81001; 82962 ×4; 83605 ×2; 83880; 84484; 85025 ×2; 85610; 85651; 85730; 86140; 87040 ×2; 87070; 87086; 87205; 87635; 93005; 93306; 96374; 97165; 99285; A9270 ×15; J0696 ×2; J1644 ×4; J1815; J1940 ×4; J3370; J7050 ×2; 73701-LT; 80202; 81003; 83735; 84100; 85027; 93010; 96365; 96366; 96367; 96372; 96375; 96376; 97110-GO; 97116-GP; 97162-GP; 97530-GO; 99284; G0378; Q9967; U0002

== ENCOUNTER 2020-06-05 13:23 | Inpatient (IN) | payer MEDICARE, OTHER ==
[2020-06-05] MEDS ORDERED: Acetaminophen 325 MG Tab PO PRN (15:13)
[2020-06-05] MEDS ORDERED: Ondansetron 4 MG Tab.DIS PO PRN (15:13)
[2020-06-05] MEDS ORDERED: oxyCODONE 5 MG Tab PO PRN (15:16)
--- NOTE | 2020-06-05 15:24 | PCM.HP ---
H&P History of Present Illness - General Date of Service: 06/05/20 Admit Problem/Dx: Admission Diagnosis/Problem Admission Diagnosis/Problem Weakness Source of Information: Patient - History of Present Illness Initial Comments - Free Text/Narative: Transferred to swing bed from acute care for lower extremity weakness and pain. Left Foot Pain Score (Numeric/FACES): 3 - Related Data Allergies/Adverse Reactions: Allergies Allergy/AdvReac Type Severity Reaction Status Date / Time No Known Allergies Allergy Verified 11/20/17 14:50 Home Medications: Home Meds Clopidogrel Bisulfate [Plavix] 75 mg PO DAILY 11/16/17 [History] Gabapentin [Neurontin] 400 mg PO TID 11/16/17 [History] Metoprolol Tartrate 50 mg PO BID 11/16/17 [History] Potassium Chloride [Klor-Con 10] 20 meq PO DAILY@0800 #30 tab.er 11/28/17 [Rx] glipiZIDE [Glucotrol XL] 5 mg PO DAILY #30 tab.er 11/28/17 [Rx] Furosemide [Lasix] 40 mg PO DAILY 06/05/20 [History] traMADol [Ultram] 50 mg PO Q12HR 06/05/20 [History] Past Medical History HEENT History: Reports: None Other HEENT History: Wears reading glasses Cardiovascular History: Reports: Heart Failure, High Cholesterol, Hypertension, [place] Respiratory History: Reports: None Gastrointestinal History: Reports: None Genitourinary History: Reports: None Musculoskeletal History: Reports: Back Pain, Chronic Neurological History: Reports: CVA, Neuropathy, Peripheral Psychiatric History: Reports: None Endocrine/Metabolic History: Reports: Diabetes, Type II, Obesity/BMI 30+ Hematologic History: Reports: None Immunologic History: Reports: None Oncologic (Cancer) History: Reports: None Dermatologic History: Reports: None - Infectious Disease History Infectious Disease History: Reports: None - Past Surgical History HEENT Surgical History: Reports: None Cardiovascular Surgical History: Reports: Coronary Artery Bypass Other Cardiovascular Surgeries/Procedures: Cardiac surgery Oct 2009, pt does not remember the specific surgery. Respiratory Surgical History: Reports: None GI Surgical History: Reports: Hernia, Abdominal Male Surgical History: Reports: None Dermatological Surgical History: Reports: None Social & Family History - Family History Family Medical History: Noncontributory - Tobacco Use Smoking Status *Q: Current Every Day Smoker Years of Tobacco use: 50 Packs/Tins Daily: 1.5 - Caffeine Use Caffeine Use: Reports: Coffee, Soda - Recreational Drug Use Recreational Drug Use: No H&P Review of Systems - Review of Systems: Review Of Systems: See Below General: Denies: Fever Pulmonary: Denies: Shortness of Breath Cardiovascular: Denies: Chest Pain Musculoskeletal: Reports: Other (Bilateral leg pain) Exam - Exam Exam: See Below - Vital Signs Weight: 281 lb 12.8 oz - Exam General: Alert, Oriented Neck: Supple Lungs: Clear to Auscultation Cardiovascular: Regular Rate, Regular Rhythm GI/Abdominal Exam: Normal Bowel Sounds, Soft Extremities: Pedal Edema - Problem List (1) Diastolic CHF, chronic SNOMED Code(s): 918423322, 051998009 ICD Code: I50.32 - CHRONIC DIASTOLIC (CONGESTIVE) HEART FAILURE Status: Acute Current Visit: Yes (2) Weakness SNOMED Code(s): 88041076 ICD Code: R53.1 - WEAKNESS Status: Acute Current Visit: No Problem List Initiated/Reviewed/Updated: Yes Orders Last 24hrs: Active Orders 24 hr Category Date Time Status Patient Status [ADT] Routine ADT 06/05/20 15:13 Active Antiembolic Devices [RC] PER UNIT ROUTINE Care 06/05/20 15:14 Active Glucose [Blood Glucose Check, Bedside] [RC] QIDACANDBED Care 06/05/20 15:18 Active Oxygen Therapy [RC] PRN Care 06/05/20 15:13 Active Up With Assistance [RC] ASDIRECTED Care 06/05/20 15:13 Active Vital Signs [RC] QSHIFT Care 06/05/20 15:13 Active OT Evaluation and Treatment [CONS] Routine Cons 06/05/20 15:20 Active PT Evaluation and Treatment [CONS] Routine Cons 06/05/20 15:20 Active Regular Diet [DIET] Diet 06/05/20 Dinner Active Acetaminophen [Tylenol] Med 06/05/20 15:13 Ordered 650 mg PO Q4H PRN Aspirin Med 06/06/20 08:00 Ordered 81 mg PO WITHBREAKFAST Clopidogrel [Plavix] Med 06/06/20 09:00 Ordered 75 mg PO DAILY Furosemide [Lasix] Med 06/05/20 15:30 Ordered 40 mg PO BIDDIURETIC Gabapentin Med 06/05/20 21:00 Ordered 400 mg PO TID Heparin Sodium Med 06/05/20 22:00 Ordered 5,000 units SUBCUT Q8HR Insulin Lispro [HumaLOG] Med 06/05/20 16:00 Ordered See Protocol SUBCUT ACBED Metoprolol Tartrate Med 06/05/20 21:00 Ordered 50 mg PO BID Nystatin [Nystatin Crm] Med 06/05/20 21:00 Ordered 1 gm TOP BID Ondansetron [Zofran ODT] Med 06/05/20 15:13 Ordered 4 mg PO Q6H PRN Potassium Chloride [Klor-Con 10] Med 06/06/20 08:00 Ordered 20 meq PO DAILY@0800 Temazepam [Restoril] Med 06/05/20 15:13 Ordered 15 mg PO BEDTIME PRN atorvaSTATin [Lipitor] Med 06/05/20 21:00 Ordered 10 mg PO BEDTIME glipiZIDE [Glucotrol XL] Med 06/06/20 09:00 Ordered 5 mg PO DAILY oxyCODONE Med 06/05/20 15:16 Ordered 5 mg PO Q4H PRN traMADol [Ultram] Med 06/05/20 15:20 Ordered 50 mg PO Q6H PRN Antiembolic Hose [OM.PC] Per Unit Routine Oth 06/05/20 15:14 Ordered Resuscitation Status Routine Resus Stat 06/05/20 15:13 Ordered Medication Orders Acetaminophen (Tylenol) 650 mg PO Q4H PRN PRN Reason: Pain (Mild 1-3)/fever Aspirin (Aspirin) 81 mg PO WITHBREAKFAST AMOL Atorvastatin Calcium (Lipitor) 10 mg PO BEDTIME AMOL Clopidogrel Bisulfate (Plavix) 75 mg PO DAILY AMOL Furosemide (Lasix) 40 mg PO BIDDIURETIC AMOL Glipizide (Glucotrol Xl) 5 mg PO DAILY [facility] Heparin Sodium (Porcine) (Heparin Sodium) 5,000 units SUBCUT Q8HR AMOL Insulin Human Lispro (Humalog) 0 unit SUBCUT ACBED AMOL; Protocol Non-Formulary Medication (Gabapentin) 400 mg PO TID AMOL Non-Formulary Medication (Metoprolol Tartrate) 50 mg PO BID AMOL Nystatin (Nystatin Crm) 1 gm TOP BID AMOL Ondansetron HCl (Zofran Odt) 4 mg PO Q6H PRN PRN Reason: nausea, able to take PO Oxycodone HCl (Oxycodone) 5 mg PO Q4H PRN PRN Reason: moderate pain Potassium Chloride (Klor-Con 10) 20 meq PO DAILY@0800 AMOL Temazepam (Restoril) 15 mg PO BEDTIME PRN PRN Reason: Sleep Tramadol HCl (Ultram) 50 mg PO Q6H PRN PRN Reason: severe pain Assessment/Plan Comment:: Patient is a 70-year-old male with medical history significant for CAD, dyslipidemia, hypertension, diabetes, and morbid obesity who is admitted for acute CHF and sepsis. He was also complaining of bilateral ankle pain unable to walk. #Acute congestive heart failure consider to diastolic dysfunction Echocardiogram showed ejection fraction of 50-55%, grade 1 diastolic dysfunction Improved with diuretics Continue Lasix Continue metoprolol #Cellulitis of bilateral lower extremities: Patient with bilateral ankle pain. ESR and CRP elevated. XR ankle shows joint effusions. Left ankle CT negative for osteo. Negative blood cultures Was treated with IV Rocephin and vancomycin Finished antibiotic treatment #CAD: Continue aspirin, Plavix, metoprolol, and statin #Hypertension: Blood pressure seems to be improved Continue metoprolol #Type 2 diabetes Sliding scale insulin hypoglycemia protocol #Chronic pain Continue Neurontin We will admit to swing bed for further physical and occupational therapy
[2020-06-05] MEDS: Gabapentin 400 MG Cap PO SCH ×2 (16:27→20:58)
[2020-06-05] MEDS: Furosemide 40 MG Tab PO SCH (16:27)
[2020-06-05] MEDS: Insulin Lispro 100 Units/ML 3 ML Vial SUBCUT SCH (17:25)
[2020-06-05] MEDS: atorvaSTATin 10 MG Tab PO SCH (20:58)
[2020-06-05] MEDS: Metoprolol Tartrate 50 MG Tab PO SCH (20:58)
[2020-06-05] MEDS: Temazepam 15 MG Cap PO PRN (20:59)
[2020-06-05] MEDS: Nystatin Crm 15 GM Tube TOP SCH (20:59)
[2020-06-05] MEDS: Heparin Sodium 5,000 Units/ML Vial SUBCUT SCH (21:01)
[2020-06-06] MEDS: Insulin Lispro 100 Units/ML 3 ML Vial SUBCUT SCH ×5 (00:44→21:12)
[2020-06-06] MEDS: Heparin Sodium 5,000 Units/ML Vial SUBCUT SCH ×2 (06:40→21:14)
[2020-06-06] MEDS: Potassium Chloride 10 MEQ Tab.ER PO SCH (07:58)
[2020-06-06] MEDS: Furosemide 40 MG Tab PO SCH ×2 (07:59→13:17)
[2020-06-06] MEDS: glipiZIDE 5 MG Tab.ER PO SCH (07:59)
[2020-06-06] MEDS: Aspirin 81 MG Tab.Chew PO SCH (07:59)
[2020-06-06] MEDS: Clopidogrel 75 MG Tab PO SCH (07:59)
[2020-06-06] MEDS: Gabapentin 400 MG Cap PO SCH ×3 (07:59→21:13)
[2020-06-06] MEDS: Metoprolol Tartrate 50 MG Tab PO SCH ×2 (07:59→21:13)
[2020-06-06] MEDS: Nystatin Crm 15 GM Tube TOP SCH (08:01)
[2020-06-06] MEDS ORDERED: Furosemide 40 MG Tab PO SCH (09:00)
[2020-06-06] MEDS: atorvaSTATin 10 MG Tab PO SCH (21:13)
[2020-06-06] MEDS: Nystatin Topical Powder 30 GM Bottle TOP SCH (21:16)
[2020-06-06] MEDS: Temazepam 15 MG Cap PO PRN (21:27)
[2020-06-06] MEDS: traMADol 50 MG Tab PO PRN (21:31)
[2020-06-07] MEDS: Insulin Lispro 100 Units/ML 3 ML Vial SUBCUT SCH ×4 (08:11→21:32)
[2020-06-07] MEDS: Clopidogrel 75 MG Tab PO SCH (08:40)
[2020-06-07] MEDS: Furosemide 40 MG Tab PO SCH ×2 (08:40→15:24)
[2020-06-07] MEDS: Aspirin 81 MG Tab.Chew PO SCH (08:40)
[2020-06-07] MEDS: Gabapentin 400 MG Cap PO SCH ×3 (08:40→21:02)
[2020-06-07] MEDS: Metoprolol Tartrate 50 MG Tab PO SCH ×2 (08:40→21:02)
[2020-06-07] MEDS: glipiZIDE 5 MG Tab.ER PO SCH (08:40)
[2020-06-07] MEDS: Potassium Chloride 10 MEQ Tab.ER PO SCH (08:40)
[2020-06-07] MEDS: Heparin Sodium 5,000 Units/ML Vial SUBCUT SCH ×2 (08:41→21:03)
[2020-06-07] MEDS: Nystatin Topical Powder 30 GM Bottle TOP SCH ×2 (15:25→21:05)
[2020-06-07] MEDS: traMADol 50 MG Tab PO PRN (21:00)
[2020-06-07] MEDS: Temazepam 15 MG Cap PO PRN (21:01)
[2020-06-07] MEDS: atorvaSTATin 10 MG Tab PO SCH (21:02)
[2020-06-08] MEDS: Clopidogrel 75 MG Tab PO SCH (09:14)
[2020-06-08] MEDS: Potassium Chloride 10 MEQ Tab.ER PO SCH (09:15)
[2020-06-08] MEDS: Aspirin 81 MG Tab.Chew PO SCH (09:15)
[2020-06-08] MEDS: Furosemide 40 MG Tab PO SCH (09:15)
[2020-06-08] MEDS: glipiZIDE 5 MG Tab.ER PO SCH (09:16)
[2020-06-08] MEDS: Gabapentin 400 MG Cap PO SCH (09:16)
[2020-06-08] MEDS: Heparin Sodium 5,000 Units/ML Vial SUBCUT SCH (09:16)
[2020-06-08] MEDS: Insulin Lispro 100 Units/ML 3 ML Vial SUBCUT SCH ×2 (09:17→11:56)
[2020-06-08] MEDS: Metoprolol Tartrate 50 MG Tab PO SCH (09:18)
[2020-06-08] MEDS: Nystatin Topical Powder 30 GM Bottle TOP SCH (09:20)
[2020-06-08 09:21] VITALS: BP 136/64
[2020-06-08 09:33] VITALS: PULSE 58
--- NOTE | 2020-06-08 09:52 | PCM.DCSUM1 ---
Discharge Summary - Hospital Course Free Text/Narrative:: Patient is a 70-year-old male with medical history significant for CAD, dyslipidemia, hypertension, diabetes, and morbid obesity who is admitted for acute CHF and sepsis. He was also complaining of bilateral ankle pain unable to walk. #Acute congestive heart failure consider to diastolic dysfunction Echocardiogram showed ejection fraction of 50-55%, grade 1 diastolic dysfunction Improved with diuretics Continue Lasix Continue metoprolol #Cellulitis of bilateral lower extremities: Patient with bilateral ankle pain. ESR and CRP was elevated. XR ankle showed joint effusions. Left ankle CT negative for osteo. Negative blood cultures Was treated with IV Rocephin and vancomycin Finished antibiotic treatment #CAD: Continue aspirin, Plavix, metoprolol, and statin #Hypertension: Blood pressure seems to be improved Continue metoprolol #Type 2 diabetes treat with glyburidel #Chronic pain Continue Neurontin tramadol prn # Groin yeast infection with small left groin open wound Will use nystatin, keep the area dry, cover the wound with wet-to-dry dressing # [facility] to instruct and assess medication regimen and help with wound assessment and dressing Physical therapy for home exercise teaching occupational therapy for home safety evaluation home health aide for bathing Diagnosis: Stroke: No - Discharge Data Discharge Date: 06/08/20 Discharge Disposition: Home, W Home Health Agency 06 Condition: Good - Referral to Home Health Date of Face to Face Encounter: 06/08/20 Reason for Homebound Status: weakness Primary Care Physician: PCP None Skilled Need: [facility] to instruct and assess medication regimen, wound assessment and management. Physical therapy for home exercise teaching. Occupational therapy for home safety evaluation. Home health aid for bathing - Discharge Diagnosis/Problem(s) (1) Diastolic CHF, chronic SNOMED Code(s): 664386869, [id number] ICD Code: I50.32 - CHRONIC DIASTOLIC (CONGESTIVE) HEART FAILURE Status: Acute Current Visit: Yes (2) Weakness SNOMED Code(s): 04770868 ICD Code: R53.1 - WEAKNESS Status: Acute Current Visit: No - Patient Summary/Data Consults: Consultations 06/05/20 15:20 OT Evaluation and Treatment [CONS] Routine PT Evaluation and Treatment [CONS] Routine - Patient Instructions Diet: Usual Diet as Tolerated Activity: As Tolerated - Discharge Plan *PRESCRIPTION DRUG MONITORING PROGRAM REVIEWED*: Not Applicable *COPY OF PRESCRIPTION DRUG MONITORING REPORT IN PATIENT MARISOL: Not Applicable Prescriptions/Med Rec: Nystatin [Nystop] 1 gm TOP BID #1 bottle Home Medications: Home Meds Clopidogrel Bisulfate [Plavix] 75 mg PO DAILY 11/16/17 [History] Gabapentin [Neurontin] 400 mg PO TID 11/16/17 [History] Metoprolol Tartrate 50 mg PO BID 11/16/17 [History] Potassium Chloride [Klor-Con 10] 20 meq PO DAILY@0800 #30 tab.er 11/28/17 [Rx] glipiZIDE [Glucotrol XL] 5 mg PO DAILY #30 tab.er 11/28/17 [Rx] Cholecalciferol (Vitamin D3) [Vitamin D3] 50 mcg PO DAILY 05/30/20 [History] atorvaSTATin Calcium [Atorvastatin Calcium] 10 mg PO BEDTIME 05/30/20 [History] Furosemide [Lasix] 40 mg PO DAILY 06/05/20 [History] traMADol [Ultram] 50 mg PO Q12HR 06/05/20 [History] Aspirin 81 mg PO WITHBREAKFAST tab.chew 06/08/20 [Rx] Nystatin [Nystop] 1 gm TOP BID #1 bottle 06/08/20 [Rx] Oxygen Therapy Mode: Room Air - Discharge Summary/Plan Comment DC Time >30 min.: No - General Info Date of Service: 06/08/20 Subjective Update: Feeling well. Eating. Walking around with walker. Feels ready to go home. - Patient Data Vitals - Most Recent: Last Vital Signs Temp 98.0 F 06/08/20 08:00 Pulse 60 06/08/20 09:18 Resp 18 06/08/20 08:00 BP 136/64 06/08/20 09:18 Pulse Ox 95 06/08/20 08:00 Weight - Most Recent: 281 lb 3.2 oz I&O - Last 24 hours: Intake & Output 06/07/20 06/08/20 06/08/20 22:59 06:59 14:59 Intake Total 1050 Output Total 700 300 Balance -700 750 Lab Results - Last 24 hrs: Laboratory Results - last 24 hr 06/07/20 06/07/20 06/07/20 Range/Units 11:33 17:05 21:29 POC Glucose 157 H 102 109 (83-110) mg/dl 06/08/20 Range/Units 07:37 POC Glucose 163 H (83-110) mg/dl Med Orders - Current: Current Medications Acetaminophen (Tylenol) 650 mg PO Q4H PRN PRN Reason: Pain (Mild 1-3)/fever Aspirin (Aspirin) 81 mg PO WITHBREAKFAST [facility] Last Admin: 06/08/20 09:15 Dose: 81 mg Documented by: Atorvastatin Calcium (Lipitor) 10 mg PO BEDTIME [facility] Last Admin: 06/07/20 21:02 Dose: 10 mg Documented by: Clopidogrel Bisulfate (Plavix) 75 mg PO DAILY [facility] Last Admin: 06/08/20 09:14 Dose: 75 mg Documented by: Furosemide (Lasix) 40 mg PO BIDDIURETIC [facility] Last Admin: 06/08/20 09:15 Dose: 40 mg Documented by: Gabapentin (Neurontin) 400 mg PO TID [facility] Last Admin: 06/08/20 09:16 Dose: 400 mg Documented by: Glipizide (Glucotrol Xl) 5 mg PO DAILY [facility] Last Admin: 06/08/20 09:16 Dose: 5 mg Documented by: Heparin Sodium (Porcine) (Heparin Sodium) 5,000 units SUBCUT Q12HR [facility] Last Admin: 06/08/20 09:16 Dose: 5,000 units Documented by: Insulin Human Lispro (Humalog) 0 unit SUBCUT WITHMEALSANDBED [facility]; Protocol Last Admin: 06/08/20 09:17 Dose: 1 unit Documented by: Metoprolol Tartrate (Lopressor) 50 mg PO BID [facility] Last Admin: 06/08/20 09:18 Dose: 50 mg Documented by: Nystatin (Nystop) 1 gm TOP BID [facility] Last Admin: 06/08/20 09:20 Dose: 1 applic Documented by: Ondansetron HCl (Zofran Odt) 4 mg PO Q6H PRN PRN Reason: nausea, able to take PO Oxycodone HCl (Oxycodone) 5 mg PO Q4H PRN PRN Reason: Pain (moderate 4-6) Potassium Chloride (Klor-Con 10) 20 meq PO DAILY@0800 [facility] Last Admin: 06/08/20 09:15 Dose: 20 meq Documented by: Temazepam (Restoril) 15 mg PO BEDTIME PRN PRN Reason: Sleep Last Admin: 06/07/20 21:01 Dose: 15 mg Documented by: Tramadol HCl (Ultram) 50 mg PO Q6H PRN PRN Reason: severe pain Last Admin: 06/07/20 21:00 Dose: 50 mg Documented by: Discontinued Medications Furosemide (Lasix) 40 mg PO DAILY [facility] Heparin Sodium (Porcine) (Heparin Sodium) 5,000 units SUBCUT Q8HR [facility] Last Admin: 06/06/20 06:40 Dose: Not Given Documented by: Nystatin (Nystatin Crm) 1 gm TOP BID [facility] Last Admin: 06/06/20 08:01 Dose: 1 applic Documented by: - Exam General: Reports: Alert, Oriented Neck: Reports: Supple Lungs: Reports: Clear to Auscultation, Normal Respiratory Effort Cardiovascular: Reports: Regular Rate, Regular Rhythm GI/Abdominal Exam: Normal Bowel Sounds, Soft, Non-Tender Extremities: Pedal Edema (Trace)
== END 2020-06-08 13:10 | disposition home health service (06) | DRG 947 ==
LOC: DL.MS 13:41 → UNDOADMIN 13:41 → DL.MS 14:12
PROVIDERS: ADMIT Internal Medicine; ATTEND Internal Medicine
DX: R53.1 Weakness (principal); I50.33 Acute on chronic diastolic (congestive) heart failure; L03.115 Cellulitis of right lower limb; L03.116 Cellulitis of left lower limb; B37.89 Other sites of candidiasis; I25.10 Atherosclerotic heart disease of native coronary artery without angina pectoris; I11.0 Hypertensive heart disease with heart failure; G89.29 Other chronic pain; E66.01 Morbid (severe) obesity due to excess calories; E78.5 Hyperlipidemia, unspecified; E11.42 Type 2 diabetes mellitus with diabetic polyneuropathy; M54.9 Dorsalgia, unspecified; F17.200 Nicotine dependence, unspecified, uncomplicated; E78.00 Pure hypercholesterolemia, unspecified; I25.2 Old myocardial infarction; Z86.73 Personal history of transient ischemic attack (TIA), and cerebral infarction without residual deficits
CPT/HCPCS: 82962; 97110-GO; 97110-GP; 97116-GP; 97162-GP; 97165-GO; A9270-GY; J1644

== ENCOUNTER 2022-05-24 10:20 | Inpatient (IN) | payer OTHER ==
[2022-05-24] MEDS ORDERED: Sodium Chloride 0.9% 1,000 ML IV ONE ×2 (10:54→10:55)
[2022-05-24 11:13] LABS: ANION GAP 13.3 mEq/L (7-13)
[2022-05-24] MEDS ORDERED: Dexamethasone 4 MG/ML SDV IVPUSH ONE (11:54)
[2022-05-24] MEDS ORDERED: REMDESIVIR 200 MG in Sodium Chloride 0.9% 250 ML IV ONE (11:58)
[2022-05-24] MEDS: Sodium Chloride 0.9% 10 ML Syringe FLUSH PRN ×2 (12:37→20:01)
[2022-05-24] MEDS ORDERED: Magnesium Hydroxide 400 MG/5 ML Susp 30 ML Cup PO PRN (13:09)
[2022-05-24] MEDS ORDERED: Polyethylene Glycol 3350 Powder 17 GM Packet PO PRN (13:09)
[2022-05-24] MEDS ORDERED: Zolpidem 5 MG Tab PO PRN (13:09)
[2022-05-24] MEDS ORDERED: Albuterol/Ipratropium 3.0-0.5 MG/3 ML Neb Soln NEB PRN (13:09)
[2022-05-24] MEDS ORDERED: Docusate Sodium 100 MG Cap PO PRN (13:09)
[2022-05-24] MEDS ORDERED: Acetaminophen 325 MG Tab PO PRN (13:09)
[2022-05-24] MEDS ORDERED: HYDROmorphone 0.5 MG/0.5 ML Syringe IVPUSH PRN (13:09)
[2022-05-24] MEDS ORDERED: Ondansetron 4 MG/2 ML SDV IVPUSH PRN (13:09)
[2022-05-24] MEDS ORDERED: Acetaminophen/HYDROcodone 325-5 MG Tab PO PRN (13:09)
[2022-05-24] MEDS ORDERED: Bisacodyl 5 MG Tab PO PRN (13:09)
[2022-05-24] MEDS ORDERED: Glucagon,Human Recombinant 1 MG Vial IM PRN (13:14)
[2022-05-24] MEDS ORDERED: 50% Dextrose in Water 50 ML Syringe IVPUSH PRN (13:14)
[2022-05-24] MEDS ORDERED: REMDESIVIR 100 MG in Sodium Chloride 0.9% 100 ML IV SCH (13:45)
[2022-05-24] MEDS: cefTRIAXone 1 GM in Sodium Chloride 0.9% 50 ML IV SCH (15:20)
[2022-05-24] MEDS: Enoxaparin 40 MG/0.4 ML Syringe SUBCUT SCH (15:21)
[2022-05-24] MEDS: Azithromycin 500 MG in Sodium Chloride 0.9% 250 ML IV SCH (15:59)
[2022-05-24] MEDS: Insulin Lispro 100 Units/ML 3 ML Vial SUBCUT SCH (17:34)
[2022-05-24] MEDS: Famotidine 20 MG Tab PO SCH (20:02)
[2022-05-24] MEDS: Saccharomyces Boulardii (Probiotic) 250 MG Cap PO SCH (20:02)
[2022-05-24] MEDS: Check Patch TRDERM SCH (20:47)
[2022-05-25 07:19] LABS: ANION GAP 12.5 mEq/L (7-13)
[2022-05-25] MEDS ORDERED: 50% Dextrose in Water 50 ML Syringe IVPUSH PRN (08:25)
[2022-05-25] MEDS ORDERED: Glucagon,Human Recombinant 1 MG Vial IM PRN (08:25)
[2022-05-25] MEDS: Famotidine 20 MG Tab PO SCH ×2 (08:32→20:14)
[2022-05-25] MEDS: Enoxaparin 40 MG/0.4 ML Syringe SUBCUT SCH (08:33)
[2022-05-25] MEDS: Dexamethasone 6 MG TABLET PO SCH (08:33)
[2022-05-25] MEDS: Saccharomyces Boulardii (Probiotic) 250 MG Cap PO SCH ×2 (08:33→20:12)
[2022-05-25] MEDS: Nicotine 21 MG/24 Hr Patch TRDERM SCH (08:34)
[2022-05-25] MEDS: Insulin Lispro 100 Units/ML 3 ML Vial SUBCUT SCH ×3 (08:35→17:32)
[2022-05-25] MEDS: Insulin Glarg,Human.Rec.Analog 100 Unit/ML SUBCUT SCH ×2 (08:41→20:12)
[2022-05-25] MEDS ORDERED: REMDESIVIR 100 MG in Sodium Chloride 0.9% 100 ML IV SCH (09:00)
[2022-05-25] MEDS: REMDESIVIR 100 MG in Sodium Chloride 0.9% 100 ML IV SCH (12:09)
[2022-05-25] MEDS: cefTRIAXone 1 GM in Sodium Chloride 0.9% 50 ML IV SCH (13:10)
[2022-05-25] MEDS: Azithromycin 500 MG in Sodium Chloride 0.9% 250 ML IV SCH (15:16)
[2022-05-25] MEDS: Sodium Chloride 0.9% 10 ML Syringe FLUSH PRN (20:11)
[2022-05-26] MEDS: Check Patch TRDERM SCH ×2 (00:43→21:12)
[2022-05-26 07:19] LABS: ANION GAP 11.4 mEq/L (7-13)
[2022-05-26] MEDS: Saccharomyces Boulardii (Probiotic) 250 MG Cap PO SCH ×2 (08:29→21:11)
[2022-05-26] MEDS: Famotidine 20 MG Tab PO SCH ×2 (08:29→21:11)
[2022-05-26] MEDS: Enoxaparin 40 MG/0.4 ML Syringe SUBCUT SCH (08:29)
[2022-05-26] MEDS: Dexamethasone 6 MG TABLET PO SCH (08:29)
[2022-05-26] MEDS: Nicotine 21 MG/24 Hr Patch TRDERM SCH (08:30)
[2022-05-26] MEDS: Insulin Lispro 100 Units/ML 3 ML Vial SUBCUT SCH ×3 (08:32→17:46)
[2022-05-26] MEDS: Insulin Glarg,Human.Rec.Analog 100 Unit/ML SUBCUT SCH ×2 (08:35→21:12)
[2022-05-26] MEDS ORDERED: Ergocalciferol (Vitamin D2) 1.25 MG Cap PO SCH (09:00)
[2022-05-26] MEDS: REMDESIVIR 100 MG in Sodium Chloride 0.9% 100 ML IV SCH (12:02)
[2022-05-26] MEDS: cefTRIAXone 1 GM in Sodium Chloride 0.9% 50 ML IV SCH (13:36)
[2022-05-26] MEDS: Azithromycin 500 MG in Sodium Chloride 0.9% 250 ML IV SCH (14:40)
[2022-05-26] MEDS: Sodium Chloride 0.9% 10 ML Syringe FLUSH PRN (21:13)
[2022-05-27 07:29] LABS: ANION GAP 10.9 mEq/L (7-13)
[2022-05-27] MEDS: Famotidine 20 MG Tab PO SCH (08:24)
[2022-05-27] MEDS: Saccharomyces Boulardii (Probiotic) 250 MG Cap PO SCH (08:25)
[2022-05-27] MEDS: Dexamethasone 6 MG TABLET PO SCH (08:25)
[2022-05-27] MEDS: Insulin Glarg,Human.Rec.Analog 100 Unit/ML SUBCUT SCH (08:25)
[2022-05-27] MEDS: Insulin Lispro 100 Units/ML 3 ML Vial SUBCUT SCH ×2 (08:26→12:20)
[2022-05-27] MEDS: Enoxaparin 40 MG/0.4 ML Syringe SUBCUT SCH (08:27)
[2022-05-27] MEDS: Nicotine 21 MG/24 Hr Patch TRDERM SCH (08:27)
[2022-05-27 12:10] VITALS: BP 148/61; PULSE 58
[2022-05-27] MEDS: REMDESIVIR 100 MG in Sodium Chloride 0.9% 100 ML IV SCH (12:20)
[2022-05-27] MEDS: cefTRIAXone 1 GM in Sodium Chloride 0.9% 50 ML IV SCH (15:13)
[2022-05-27] MEDS: Azithromycin 500 MG in Sodium Chloride 0.9% 250 ML IV SCH (15:13)
== END 2022-05-27 15:03 | disposition home or self-care (01) | DRG 177 ==
LOC: DL.ED 10:20 → DL.MS 12:40
PROVIDERS: ADMIT Internal Medicine; ATTEND Internal Medicine
PROC: XW033E5 Introduction of Remdesivir Anti-infective into Peripheral Vein, Percutaneous Approach, New Technology Group 5 (ICD-10-PCS; principal; 2022-05-24)
PROC: 3E0333Z Introduction of Anti-inflammatory into Peripheral Vein, Percutaneous Approach (ICD-10-PCS; 2022-05-24)
DX: U07.1 COVID-19 (principal); J12.82 Pneumonia due to coronavirus disease 2019; N17.9 Acute kidney failure, unspecified; R09.02 Hypoxemia; E87.1 Hypo-osmolality and hyponatremia; E78.5 Hyperlipidemia, unspecified; I25.10 Atherosclerotic heart disease of native coronary artery without angina pectoris; Z66 Do not resuscitate; I11.0 Hypertensive heart disease with heart failure; I50.9 Heart failure, unspecified; Z79.84 Long term (current) use of oral hypoglycemic drugs; Z79.02 Long term (current) use of antithrombotics/antiplatelets; Z79.82 Long term (current) use of aspirin; H54.7 Unspecified visual loss; E80.6 Other disorders of bilirubin metabolism; E11.42 Type 2 diabetes mellitus with diabetic polyneuropathy; J44.9 Chronic obstructive pulmonary disease, unspecified; G89.29 Other chronic pain; M54.9 Dorsalgia, unspecified; E66.9 Obesity, unspecified; G62.9 Polyneuropathy, unspecified; I65.29 Occlusion and stenosis of unspecified carotid artery; E86.0 Dehydration; E11.65 Type 2 diabetes mellitus with hyperglycemia; E78.00 Pure hypercholesterolemia, unspecified; D69.6 Thrombocytopenia, unspecified; R74.8 Abnormal levels of other serum enzymes; Z68.31 Body mass index [BMI] 31.0-31.9, adult; Z79.4 Long term (current) use of insulin; I25.2 Old myocardial infarction; Z87.01 Personal history of pneumonia (recurrent); Z86.19 Personal history of other infectious and parasitic diseases; Z95.1 Presence of aortocoronary bypass graft; Z87.891 Personal history of nicotine dependence; Z86.73 Personal history of transient ischemic attack (TIA), and cerebral infarction without residual deficits; Z79.899 Other long term (current) drug therapy
CPT/HCPCS: 36415; 71045; 80053; 82248; 82306; 82728; 83605; 83615; 83735; 83880; 84145; 85025; 85379; 86140; 87040 ×2; 87635; 93005; J0248; J1100; J3490; J7030 ×2; J7050; 82947; 93010; 96374; 96375; 97161-GP; 97165-GO; 99284; 99285-25; A9270-GY; J0456; J0696; J1650; J1815-GY; J7620-GY; J8540; U0002

== ENCOUNTER → 2023-04-23 | Day surgery (SDC) | payer OTHER ==
[~2023-04-23] MED LIST: Acetaminophen 325 MG Tab PO PRN; Acetaminophen/Codeine 300-30 MG Tab PO PRN; Apraclonidine 0.5% Ophth Soln 5 ML Bot EYERT ONE; Balanced Salt Solution Ophth Irrig 500 ML Bottle IOCULAR ONE; Cataract Ophth Solution EYELF ONE; Chondroitin Sulfate/Hyaluronate Sodium Ophth Inj 0.75 ML Syringe EYERT ONE; Dexamethasone/Neomycin/Polymyxin B Ophth Oint 3.5 GM Tube EYERT ONE; Diclofenac Sodium 0.1% Ophth Soln 5 ML Bottle EYERT ONE; Lidocaine 1% 30 ML SDV ONE; Moxifloxacin 0.5% Ophth Soln 3 ML Bottle EYERT ONE; Ondansetron 4 MG/2 ML SDV IVPUSH PRN; Phenylephrine 10% Ophth Soln 5 ML Bot EYERT PRN; Povidone-Iodine 5% Sterile Ophth Soln 30 ML Bottle EYERT ONE; Proparacaine 0.5% Ophth Soln 15 ML Bottle EYERT ONE; Sodium Chloride 0.9% 10 ML Syringe FLUSH PRN; Timolol Maleate 0.5% Ophth Soln 5 ML Bottle EYERT ONE; Tropicamide 1% Ophth Soln 15 ML Bottle EYERT ONE; Vancomycin 500 MG SDV EYERT ONE
[2023-04-23 14:03] VITALS: BP 101/58; PULSE 66
== END | disposition home or self-care (01) ==
LOC: DL.SDS 09:50
PROVIDERS: ATTEND Ophthalmology
DX: E11.36 Type 2 diabetes mellitus with diabetic cataract (principal); H25.811 Combined forms of age-related cataract, right eye; I11.0 Hypertensive heart disease with heart failure; I50.22 Chronic systolic (congestive) heart failure; E11.51 Type 2 diabetes mellitus with diabetic peripheral angiopathy without gangrene; E11.40 Type 2 diabetes mellitus with diabetic neuropathy, unspecified; I25.2 Old myocardial infarction; E53.8 Deficiency of other specified B group vitamins; E66.01 Morbid (severe) obesity due to excess calories; E55.9 Vitamin D deficiency, unspecified; D72.829 Elevated white blood cell count, unspecified; M54.50 Low back pain, unspecified; G89.29 Other chronic pain; Z79.84 Long term (current) use of oral hypoglycemic drugs; Z79.4 Long term (current) use of insulin; Z95.1 Presence of aortocoronary bypass graft; Z98.890 Other specified postprocedural states
CPT/HCPCS: 66984; A9270; J3370; V2632; J3490